=== PATIENT | female | born 1955 | race Hispanic/Latino ===

== ENCOUNTER 2016-08-28 06:07 | Inpatient (IN) | payer MEDICARE ==
[2016-08-28 06:14] VITALS: BMI 30.6
[2016-08-28] MEDS ORDERED: Thrombin Topical 5,000 IU Spray Kit ONE (07:04)
[2016-08-28] MEDS ORDERED: Absorbable Gelatin Sponge Size 100 ONE (07:04)
[2016-08-28] MEDS ORDERED: Bacitracin Ointment 30 GM TUBE ONE (07:04)
--- NOTE | 2016-08-28 07:06 | CP.PCM.HP ---
History of Present Illness - History of Present Illness History of Present Illness: Chief Complaint : right knee pain HPI: 61 y/o lady with hx of OA, HTN, DM and Psoriasis came in for scheduled Revision TKR of the right knee . The patient has had a long history of pain on the right knee. She had 4 previous surgeries on the right knee that includes Repair for a torn meniscus, partial knee replacement , TKR and for an infection w/c required prolonged antibiotic treatment , however despite these surgeries, she continues to have severe right knee pain . She had fallen multiple times because her right knee would buckle and she is unable to even bend her knee. Even a slight ROM gives her severe pain despite daily intake of analgesics. She then decided to see another Ortho and was referred to Dr Berry who recommended a Revision TKR. Pre op work up done by her PMD - in chart. Off Aspirin x 5 days . Present on Admission - Present on Admission Any Indicators Present on Admission: No Review of Systems - Review of Systems All systems: reviewed and no additional remarkable complaints except - Constitutional Constitutional: absent: Fever, Headache, Night Sweats, Weakness - EENT Eyes: absent: Change in Vision, Discharge Ears: absent: Ear Discharge, Ear Pain Nose/Mouth/Throat: absent: Nasal Congestion, Nasal Discharge, Sinus Pressure - Cardiovascular Cardiovascular: absent: Chest Pain, Chest Pain at Rest, Dyspnea on Exertion, Edema, Leg Edema, Orthopnea, Palpitations, Paroxysmal Nocturnal Dyspnea - Respiratory Respiratory: absent: Cough, Dyspnea, Dyspnea on Exertion, Wheezing - Gastrointestinal Gastrointestinal: absent: Abdominal Pain, Diarrhea, Nausea, Vomiting - Genitourinary Genitourinary: absent: Change in Urinary Stream, Difficulty Urinating, Dysuria, Hematuria - Musculoskeletal Musculoskeletal: Abnormal Gait, Arthralgias, Limited Range of Motion - Integumentary Integumentary: absent: Bleeding Lesions, Rash, Skin Ulcer - Neurological Neurological: absent: Focal Weakness, Memory Loss, Vertigo - Psychiatric Psychiatric: absent: Anxiety, Depression, Hopelessness - Endocrine Endocrine: absent: Polydipsia, Polyphagia, Polyuria - Hematologic/Lymphatic Hematologic: absent: Easy Bleeding, Easy Bruising Past Patient History - Infectious Disease Hx of Infectious Diseases: None - Tetanus Immunizations Tetanus Immunization: Unknown - Past Medical History & Family History Past Medical History?: Yes Past Family History: Reviewed and not pertinent - Past Social History Smoking Status: Never Smoked Chewing Tobacco Use: No Cigar Use: No Occupation: On disability Alcohol: None Drugs: Denies Home Situation {Lives}: With Family Domestic Violence: Negative - CARDIAC Hx Cardiac Disorders: Yes Hx Hypercholesterolemia: Yes Hx Hypertension: Yes Hx Pacemaker: No - PULMONARY Hx Respiratory Disorders: No - NEUROLOGICAL Hx Neurological Disorder: No Hx Dizziness: Yes (SYNCOPE X2) Other/Comment: Dx to have Cerebral Aneurysm 2007- on disability since then , no history of surgery , being monitored closely for this - HEENT Hx HEENT Problems: No - RENAL Hx Kidney Stones: Yes - ENDOCRINE/METABOLIC Hx Endocrine Disorders: Yes Hx Diabetes Mellitus Type 2: Yes - HEMATOLOGICAL/ONCOLOGICAL Hx Blood Disorders: No Hx Blood Transfusions: Yes (20 YRS AGO) Hx Blood Transfusion Reaction: No - INTEGUMENTARY Hx Dermatological Problems: Yes Hx Eczema: Yes Hx Psoriasis: Yes - MUSCULOSKELETAL/RHEUMATOLOGICAL Hx Musculoskeletal Disorders: Yes Hx Arthritis: Yes Hx Back Pain: Yes Hx Falls: Yes Hx Herniated Disk: Yes Hx Unsteady Gait: Yes Other/Comment: RIGHT SHOULDER TORN LIGAMENT - GASTROINTESTINAL Hx Gastrointestinal Disorders: Yes Hx Gastroesophageal Reflux: Yes Other/Comment: Umbilical Hernia Repair - GENITOURINARY/GYNECOLOGICAL Hx Genitourinary Disorders: No Other/Comment: KIDNEY STONES 09-24- - PSYCHIATRIC Hx Psychophysiologic Disorder: No Hx Depression: No Hx Emotional Abuse: No Hx Physical Abuse: No Hx Substance Use: No - SURGICAL HISTORY Hx Surgeries: Yes Hx Appendectomy: Yes Hx Herniorrhaphy: Yes (ABDOMINAL HERNIA REPAIR) Hx Hysterectomy: Yes Hx Joint Replacement: Yes (multiple right knee surgery - 4 surgeries - menisceal tear, TKR, hx of infe) Hx Orthopedic Surgery: Yes (multiple right knee surgery, TKR , menisceal tear ( 4 surgeries)) Hx Tonsillectomy: Yes Other/Comment: HYSTERECTOMY - ANESTHESIA Hx Anesthesia: Yes Hx Anesthesia Reactions: No Hx Malignant Hyperthermia: No Meds Allergies/Adverse Reactions: Allergies Allergy/AdvReac Type Severity Reaction Status Date / Time codeine Allergy Severe HALLUCINATI Verified 06/29/16 10:28 ONS Physical Exam - Constitutional Appears: No Acute Distress - Head Exam Head Exam: ATRAUMATIC, NORMAL INSPECTION, NORMOCEPHALIC - Eye Exam Eye Exam: Normal appearance Pupil Exam: NORMAL ACCOMODATION - ENT Exam ENT Exam: Mucous Membranes Dry, Normal External Ear Exam - Neck Exam Neck exam: Positive for: Full Rom. Negative for: Meningismus - Respiratory Exam Respiratory Exam: NORMAL BREATHING PATTERN. absent: Respiratory Distress - Cardiovascular Exam Cardiovascular Exam: REGULAR RHYTHM, +S1, +S2 - GI/Abdominal Exam GI & Abdominal Exam: Normal Bowel Sounds, Soft. absent: Tenderness - Extremities Exam Extremities exam: Positive for: normal capillary refill, pedal pulses present. Negative for: calf tenderness, full ROM, pedal edema Additional comments: old surgeical scar right knee unable to flex right knee, pain on ROM - Back Exam Back exam: absent: CVA tenderness (L), CVA tenderness (R), paraspinal tenderness - Neurological Exam Neurological exam: Alert, CN II-XII Intact, Oriented x3, Reflexes Normal - Psychiatric Exam Psychiatric exam: Normal Affect, Normal Mood - Skin Skin Exam: Dry, Normal Color, Warm Additional comments: psoriatic patches Results - Vital Signs Recent Vital Signs: Last Vital Signs Temp 97.4 F L 08/28/16 06:32 Pulse 77 08/28/16 06:34 Resp 20 08/28/16 06:32 BP 146/77 08/28/16 06:32 Pulse Ox 99 08/28/16 06:32 - Labs Labs: Laboratory Results - last 24 hr 08/28/16 06:47 POC Glucose (mg/dL) 141 H labs done as outpatient reviewed. Assessment & Plan (1) Right knee pain Status: Chronic (2) History of total knee replacement Status: Chronic (3) HTN (hypertension) Status: Chronic (4) DM type 2 (diabetes mellitus, type 2) Status: Chronic (5) Hyperlipidemia Status: Chronic (6) Psoriasis Status: Chronic (7) DVT prophylaxis Status: Acute - Assessment and Plan (Free Text) Assessment: 61 y/o lady with Hx of OA , HTN, DM, Psoriasis, came for scheduled Revision TKR of the right knee . Hx of multiple surgeries to the right knee . (1) Right knee pain Status: Chronic Pt came for sched Revision TKR Pre op work up done pt pt's PMD - in chart severe right knee pain, swelling, buckling, hx of falls due to the pain Had 4 surgeries of the right knee done by another Ortho ( Dr Montgomery) - ( Menisceal Tear, Partial replacement and TKR, also had hx of infection) Ortho consult : Dr Jamal Paez mgt PT/OT consult (2) History of total knee replacement Status: Chronic (3) HTN (hypertension) Status: Chronic cont Diovan (4) DM type 2 (diabetes mellitus, type 2) Status: Chronic accucheck on Lantus 40 bid on Invokana and Metformin (5) Hyperlipidemia Status: Chronic on Crestor (6) Psoriasis Status: Chronic on topical steroids (7) DVT prophylaxis Status: Acute
[2016-08-28] MEDS ORDERED: Propofol 10 mg/ml Inj (20 ML) ONE (07:12)
[2016-08-28] MEDS ORDERED: Midazolam 2 MG/2 ML VIAL ONE (07:12)
[2016-08-28] MEDS ORDERED: Ropivacaine 0.5% 30ML IV ONE (07:33)
[2016-08-28] MEDS ORDERED: Lactated Ringer's 1,000 ML IV ONE ×2 (07:36→10:00)
[2016-08-28] MEDS ORDERED: Rocuronium 10 mg/ml (5 ml) ONE (07:55)
[2016-08-28] MEDS ORDERED: Desflurane Inhalation Anesthetic Liq (240 ml) ONE (07:56)
[2016-08-28] MEDS ORDERED: ePHEDrine 50 mg/ml Inj ONE (08:44)
[2016-08-28 09:09] LABS: FLUID TYPE SYNOVIAL FLUID
[2016-08-28] MEDS ORDERED: Neostigmine Methylsulfate 3mg/3ml Syringe IV ONE (09:09)
[2016-08-28] MEDS ORDERED: Neostigmine Methylsulfate 2 MG/2 ML ML IV ONE (09:09)
[2016-08-28] MEDS ORDERED: Bacitracin OINT 15GM TOP ONE (10:48)
--- NOTE | 2016-08-28 11:07 | PCM.ANESB3 ---
Femoral Nerve Block - Femoral Nerve Block Date of Procedure: 08/28/16 Anesthesiologist: [place] Pre-Procedure Diagnosis: r knee djd Post-Procedure Diagnosis: same Procedure Performed: Femoral Nerve Block Right - Procedure Femoral Nerve Block: The procedure was explained to the patient that it is for the post-operative pain management. Consent was obtained after a thorough discussion with the patient regarding the benefits and possible complications of local anesthetic block of the femoral nerve at the inguinal crease area. The patient was brought to the operating room and standard monitors were applied. Time-out was held with the circulating nurse to confirm the correct surgery and the appropriate block. After applying oxygen by nasal cannula and administering IV Sedation, patient was placed in supine position with fully extended lower extremities and the _right groin exposed. The femoral artery was then carefully palpated. The ultrasound transducer was then applied to this area in the transverse plane and the femoral nerve was visualized lateral to the femoral artery and underneath the fascia iliaca. After thorough identification, the inguinal crease area was prepped with Betadine solution three times and 1 % Lidocaine was injected subcutaneously for topical anesthesia. At this point, a #22 gauge Stimuplex 2-inch needle was inserted immediately lateral to the femoral artery pulse at the inguinal crease and advanced perpendicularly. The needle was inserted to the ultrasound transducer in-plane towards the femoral nerve in a [id number] direction. Needle advancement was performed carefully under direct ultrasound visualization. Nerve stimulator was used and twitch of the quadriceps muscle was obtained at current of _2.0____ MA. After negative aspiration, __1___cc of _0.5____% ___ropivicaine ____was injected and this was followed with _19 cc of __0.5 % __ ropivicaine . Under ultrasound guidance the local anesthetics were observed spreading below fascia iliaca and around the femoral nerve. The needle was removed intact and sterile dressing was applied. The patient had stable vital signs, was conscious and in no apparent distress. The patient tolerated the femoral nerve block well with stable vital signs and was prepared for subsequent surgery.
[2016-08-28] MEDS: HYDROmorphone 0.5 mg/0.5 ml ISec IVP PRN ×5 (11:12→13:21)
--- NOTE | 2016-08-28 12:07 | RAD ---
Indication: Status post right knee revision Comparison: None available Two views, right knee Findings: The patient is status post right knee total arthroplasty. Alignment appears satisfactory. Soft tissue swelling, subcutaneous emphysema, drainage catheter, and surgical maria compatible with recent postoperative history Impression: Status post right knee arthroplasty as above.
--- NOTE | 2016-08-28 14:30 | RAD ---
PROCEDURE: Right Knee Radiographs. HISTORY: s/p right knee revision COMPARISON: None available. TECHNIQUE: Standard protocol for this study/examination. FINDINGS: Satisfactory postoperative findings status post right TKA. No evidence of prosthetic loosening. Surgical drains identified. IMPRESSION: Satisfactory postoperative status.
--- NOTE | 2016-08-28 15:38 | PCM.SURG1 ---
Surgeon's Initial Post Op Note - Surgeon's Notes Surgeon: Jamal Ingredient Specialist: kishan Lerma, 2nd assist Devan Levine Type of Anesthesia: General Endo, Spinal Anesthesia Administered By: Dr Gracia Pre-Operative Diagnosis: Painful R TKR Operative Findings: loosened tibial componenet. failed patella componeent. well fixed femoral component Post-Operative Diagnosis: as above Operation Performed: Revisison tibial component. revision patellar component. posterior capsular release. lateral patella release. anterior and posterior synovectomy Specimen/Specimens Removed: failed tibial component/patella componeent. synovitis Estimated Blood Loss: EBL {In ML}: 50 Blood Products Given: N/A Drains Used: Hemovac Post-Op Condition: Good Date of Surgery/Procedure: 08/28/16 Time of Surgery/Procedure: 08:35 (time in room 7:36/anesthesia induction time 7: 35)
[2016-08-28] MEDS: ceFAZolin 2 GM in Sodium Chloride 0.9% 100 ML IVPB SCH ×3 (16:21→16:25)
[2016-08-28] MEDS ORDERED: Insulin Detemir 100 Units/ml Inj SC SCH (17:00)
[2016-08-28] MEDS: Insulin Lispro (humaLOG) 100 Units/ml Inj SC SCH ×3 (17:44→22:17)
[2016-08-28] MEDS: Omega-3-Acid Ethyl Esters 1 GM Cap PO SCH (18:42)
[2016-08-28] MEDS: Insulin Detemir 100 Units/ml Inj SC SCH (21:57)
[2016-08-29] MEDS: ceFAZolin 2 GM in Sodium Chloride 0.9% 100 ML IVPB SCH (02:07)
[2016-08-29 04:05] VITALS: RESP 20
[2016-08-29 05:37] LABS: HEMATOCRIT 31.9 % (34.0-47.0); MEAN CELL VOLUME 86.9 fl (81.0-99.0); MEAN CORPUSCULAR HEMOGLOBIN 29.4 pg (27.0-31.0); MEAN CORPUSCULAR HGB CONC 33.9 g/dL (33.0-37.0); RED CELL DISTRIBUTION WIDTH 13.1 % (11.5-14.5); WHITE BLOOD COUNT 9.4 K/uL (4.8-10.8)
[2016-08-29 05:43] LABS: BLOOD UREA NITROGEN 17 mg/dl (7-17); CALCIUM 8.6 mg/dL (8.4-10.2); CARBON DIOXIDE 28 mmol/L (22-30); CHLORIDE 99 mmol/L (98-107); GFR AFRICAN-AMERICAN > 60; GLUCOSE,RANDOM 111 mg/dL (65-105); POTASSIUM 3.8 MMOL/L (3.6-5.0); SODIUM 138 mmol/l (132-148)
--- NOTE | 2016-08-29 08:00 | CP.PCM.PN ---
Subjective - Date & Time of Evaluation Date of Evaluation: 08/29/16 Time of Evaluation: 07:40 - Subjective Subjective: S pt with post op discomfort as exppected Objective - Vital Signs/Intake and Output Vital Signs (last 24 hours): Temp Pulse Resp BP Pulse Ox 98.6 F 89 20 110/66 100 08/29/16 01:18 08/29/16 01:18 08/29/16 01:18 08/29/16 01:18 08/29/16 01:18 Intake and Output: 08/29/16 08/29/16 06:59 18:59 Output Total 60 Balance -60 - Medications Medications: Current Medications Atorvastatin Calcium (Lipitor) 10 mg PO DAILY [facility] Home Med (Canagliflozin [Invokana]) 300 mg PO QAM [facility] Hydromorphone HCl (Dilaudid 0.2 Mg/Ml [employer]) 0 mg IV PRN PRN; Protocol PRN Reason: Pain, severe (8-10) Last Admin: 08/28/16 11:53 Dose: 0 mg Insulin Detemir (Levemir) 40 units SC Q12 [facility] Last Admin: 08/28/16 21:57 Dose: 40 units Insulin Human Lispro (Humalog) 0 units SC ACHS [facility] PRN Reason: Protocol Last Admin: 08/28/16 22:17 Dose: Not Given Cohyk-4-Awhr Ethyl Esters (Lovaza) 1 gm PO BID [facility] Last Admin: 08/28/16 18:42 Dose: 1 gm Valsartan (Diovan) 160 mg PO DAILY [facility] - Labs Labs: 08/29/16 04:35 08/29/16 04:35 APTT 24.3 SECONDS (23.3-32.5) 08/28/16 06:50 - Additional Findings Additional findings: Obj systemic qwnl Musculoskekltal stance/gaiot- defrred knee immobilizer intact orthopedically stable Assessment and Plan - Assessment and Plan (Free Text) Assessment: A- s/p Revsion TKR P full weight bearing CPM
[2016-08-29] MEDS: Omega-3-Acid Ethyl Esters 1 GM Cap PO SCH ×2 (09:13→16:18)
[2016-08-29] MEDS: Insulin Detemir 100 Units/ml Inj SC SCH ×3 (09:13→21:15)
[2016-08-29] MEDS: Insulin Lispro (humaLOG) 100 Units/ml Inj SC SCH ×4 (09:14→21:42)
[2016-08-29] MEDS: Pantoprazole 40 mg EC Tab PO SCH (09:20)
--- NOTE | 2016-08-29 12:24 | CP.PCM.PN ---
Subjective - Date & Time of Evaluation Date of Evaluation: 08/29/16 Time of Evaluation: 12:00 - Subjective Subjective: Some post op pain however better with pain meds- Dilaudid sl itching bec of her Psoriasis denies CP no SOB no abd pain\ no cough Objective - Vital Signs/Intake and Output Vital Signs (last 24 hours): Temp Pulse Resp BP Pulse Ox 98.3 F 90 20 120/63 97 08/29/16 09:00 08/29/16 10:32 08/29/16 08:28 08/29/16 08:28 08/29/16 10:32 Intake and Output: 08/29/16 08/29/16 06:59 18:59 Output Total 60 Balance -60 - Medications Medications: Current Medications Aspirin (Ecotrin) 81 mg PO BID [facility] Last Admin: 08/29/16 09:18 Dose: 81 mg Atorvastatin Calcium (Lipitor) 10 mg PO DAILY [facility] Last Admin: 08/29/16 09:18 Dose: 10 mg Docusate Sodium (Colace) 100 mg PO BID [facility] Last Admin: 08/29/16 09:18 Dose: 100 mg Home Med (Canagliflozin [Invokana]) 300 mg PO QAM [facility] Hydromorphone HCl (Dilaudid) 2 mg PO Q6 PRN PRN Reason: Pain, moderate (4-7) Insulin Detemir (Levemir) 40 units SC Q12 [facility] Last Admin: 08/29/16 09:26 Dose: Not Given Insulin Human Lispro (Humalog) 0 units SC ACHS [facility] PRN Reason: Protocol Last Admin: 08/29/16 09:14 Dose: Not Given Asifi-0-Bwcy Ethyl Esters (Lovaza) 1 gm PO BID [facility] Last Admin: 08/29/16 09:13 Dose: 1 gm Pantoprazole Sodium (Protonix Ec Tab) 40 mg PO DAILY [facility] Last Admin: 08/29/16 09:20 Dose: 40 mg Valsartan (Diovan) 160 mg PO DAILY [facility] Last Admin: 08/29/16 09:13 Dose: 160 mg - Labs Labs: 08/29/16 04:35 08/29/16 04:35 APTT 24.3 SECONDS (23.3-32.5) 08/28/16 06:50 - Constitutional Appears: No Acute Distress - Head Exam Head Exam: NORMAL INSPECTION, NORMOCEPHALIC - Eye Exam Eye Exam: EOMI, Normal appearance Pupil Exam: NORMAL ACCOMODATION - ENT Exam ENT Exam: Mucous Membranes Moist, Normal External Ear Exam - Neck Exam Neck Exam: Full ROM. absent: Meningismus - Respiratory Exam Respiratory Exam: NORMAL BREATHING PATTERN. absent: Respiratory Distress - Cardiovascular Exam Cardiovascular Exam: REGULAR RHYTHM, +S1, +S2 - GI/Abdominal Exam GI & Abdominal Exam: Soft, Normal Bowel Sounds. absent: Tenderness - Extremities Exam Extremities Exam: Normal Capillary Refill. absent: Calf Tenderness Additional comments: Right knee with immobilizer and Hemovac ( minimal blood ) Assessment and Plan (1) Right knee pain Status: Chronic (2) History of total knee replacement Status: Chronic (3) HTN (hypertension) Status: Chronic (4) DM type 2 (diabetes mellitus, type 2) Status: Chronic (5) Hyperlipidemia Status: Chronic (6) Psoriasis Status: Chronic (7) DVT prophylaxis Status: Acute - Assessment and Plan (Free Text) Assessment: 61 y/o lady with Hx of OA , HTN, DM, Psoriasis, came for scheduled Revision TKR of the right knee . Hx of multiple surgeries to the right knee . (1) Right knee pain s/p Revision TKR Pt came w/ severe right knee pain, swelling, buckling, hx of falls due to the pain Had 4 surgeries of the right knee done by another Ortho ( Dr Montgomery) - ( Menisceal Tear, Partial replacement and TKR, also had hx of infection) Ortho consult : Dr Berry- Revision TKR done 08/28 Pain mgt: Dilaudid IV and PO PT/OT consulted plan for ROHIT placement for further Rehab (2) History of total knee replacement Status: Chronic Revision TKR done this admission (3) HTN (hypertension) Status: Chronic cont Diovan (4) DM type 2 (diabetes mellitus, type 2) Status: Chronic accucheck on Lantus 40 bid on Invokana and Metformin at home - will hold for now (5) Hyperlipidemia Status: Chronic on sttin (6) Psoriasis Status: Chronic on topical steroids (7) DVT prophylaxis Status: Acute ASA BID
[2016-08-29] MEDS ORDERED: DiphenhydrAMINE 12.5 mg/5 ml LIQ UD (5 ml) PO PRN (12:26)
[2016-08-29] MEDS: Sodium Chloride 0.9% 1,000 ML IV SCH (18:53)
[2016-08-30] MEDS: Sodium Chloride 0.9% 1,000 ML IV SCH (06:22)
[2016-08-30] MEDS: Insulin Lispro (humaLOG) 100 Units/ml Inj SC SCH ×2 (06:51→13:17)
--- NOTE | 2016-08-30 07:03 | OP ---
PROCEDURE DATE: 08/28/2016 PREOPERATIVE DIAGNOSIS: Painful revision right total knee replacement. POSTOPERATIVE DIAGNOSES: 1. Loosened tibial component. 2. Failed patellar component with evidence of tricompartmental synovitis. 3. Anterior and posterior synovitis. 4. Posterior capsular contracture. POSTOPERATIVE DIAGNOSES: 1. Loosened tibial component. 2. Failed patellar component with deformation. 3. Synovitis, anterior and posterior compartments. 4. Lateral patella contracture. 5. Posterior capsular contracture. PROCEDURES: 1. Revision total knee replacement arthroplasty, 2 components. 2. Removal total knee components. 3. Anterior and posterior synovectomy. 4. Posterior capsular release. 5. Lateral patellar retinacular release. SURGEON: Amando Berry MD PLASMA CENTER TECHNICIAN: Elidia Castillo, Certified Registered Nursing Burial Vault Setter SECOND PSYCHOMETRICIAN: Alton Fishman ANESTHESIA: Spinal and general. COMPLICATIONS: None. DRAINS: One Hemovac. OPERATIVE INDICATION: The patient is a woman who has had a revision total knee replacement and has h ad severe pain since the surgery. The patient had been taken to surgery for an aspiration arthrogram , which was negative. Pros, cons, risks and benefits of surgical approach are discussed. The possib ility of mechanical failure, infection, thromboembolic disease, stiffness, nerve injury, secondary an d even tertiary surgery is discussed. The patient can no longer stand the discomfort and the informe d consent was obtained from the patient in the presence of her son. Again, the possibility of stiffn ess, mechanical failure, infection, thromboembolic disease, nerve injury, secondary or even tertiary surgery is discussed. The patient can no longer stand the discomfort. OPERATIVE PROCEDURE: After having obtained informed consent in the above fashion, after having ident ified side, site and procedure in a critical pause/timeout, after the satisfactory induction of the a nesthetic, the patient identified in the supine position with all bony prominences well padded, [facility] and free draped in the usual fashion for lower extremity surgery. Th e tourniquet had been applied, but is not yet inflated. After exsanguinating the limb using a 6 inch Esmarch bandage, the tourniquet, which had been applied, is inflated to 350 mmHg. Incision is descr ibed 2 fingerbreadths proximal, 2 fingerbreadths distal to the incision. An ellipse of skin is jasvir ed down through skin and subcutaneous tissue. This is excised. A medial arthrotomy is accomplished. The patella is everted. The knee is flexed. Dissection is carried around posteromedially to the d irect head of the semimembranosis tendon. A portion of the patella ligament is elevated. At this po int in time, the patellofemoral ligament is removed. An anterior synovectomy and posterior synovecto my is accomplished. The femoral component is found to be in appropriate rotation and well fixed. Th e tibia is dislocated anteriorly. There is found to be evidence of loosening of the tibial component with evidence of extravasation of blood when the polyethylene is removed and the plate is impacted. This having been accomplished, the plane between the plate and the cement is developed using an osci llating saw and this goes around the entire tibial plate. The tibial interface is then again identif ied and marked with the cement removing osteotomes. The tibial plate is removed. At this point in t angélica, the cement is removed as well. The cement is removed using a combination of the estefania, the saw a nd the cement removal instruments. This having been accomplished, the cement is removed and the intr amedullary tibial guide is placed with the tibial cut having been accomplished. The cut is adjusted to 0 degrees varus valgus and neutral degrees of posterior slope. This having been accomplished, vicky casey commences and the stemmed tibial component is trialed for a #2 tibial component with a 6 mm meta l augment medially and laterally with an 18 mm polyethylene. Stability is found to be excellent. At tention is turned to the patella. There is found to be evidence of patella damage. A posterior caps ular release had been accomplished after the tibial component is removed because of a posterior capsu lar contracture. The patient did not extend to full extension preoperatively. The lateral patellar retinaculum is contracted as well and at this point in time, the tibia having been sized and prepared , a lateral patellar retinacular release is accomplished. Anterior and posterior synovectomy is acco mplished. Posterior capsular release is accomplished using the oscillating saw. This having been ac complished, the tibial osteotomy is accomplished as well as a partial osteotomy of the fibular head, taking great care not to injure the peroneal nerve. Tibial osteotomy having been accomplished, proxi mal tibial having been prepared, the patella component having been removed, the patella cut is accomp lished and sizing is accomplished to a 37 mm patellar component. After lateral patellar retinacular release, trialing is accomplished and found to be excellent with a +6 augment and 18 mm polyethylene. Flexion, extension is balanced. Full extension is achieved and patella balance is achieved. The t ibia and patella are prepared using the waterpik and the #2 stemmed tibial component is applied with the 37 mm patella. Cementation having been accomplished, a reconstruction/reinforcement of the martínez la ligament is accomplished as well. This having been accomplished, this is accomplished with a [place] internal fixation suture and closure is in layers with #2 Quill, #2 FiberWire, the [place] is used with #2 Ethibond for reinforcement of the patella ligament and reconstruction of the patella ligament . Further closure is in layers with 0 Quill over an 1/8 inch suction Hemovac drain. Vicryl and stap les for skin. Scott Chowdary compression dressing is applied. PROCEDURES: 1. Revision total knee replacement arthroplasty, 2 components. 2. Removal previous total knee replacement arthroplasty, 2 components. 3. Repair/reconstruction of patella ligament. 4. Anterior and posterior synovectomy. 5. Posterior capsule release. 6. Lateral patellar retinacular release. SURGEON: Amando Berry MD PLASMA CENTER TECHNICIAN: Elidia Castillo SECOND PSYCHOMETRICIAN: Alton Castillo was essential to the completion of this procedure. Postoperative x-rays showed acceptab le position of the construct. Right knee was the involved knee. Amando Berry MD cc: [id number] TT: 08/29/2016 10:08:42 en 08/30/2016 06:02:46
[2016-08-30 08:16] VITALS: TEMP 98.6
[2016-08-30] MEDS: Insulin Detemir 100 Units/ml Inj SC SCH (09:00)
[2016-08-30] MEDS: Omega-3-Acid Ethyl Esters 1 GM Cap PO SCH (09:01)
[2016-08-30] MEDS: Pantoprazole 40 mg EC Tab PO SCH (09:02)
[2016-08-30 11:16] VITALS: PULSE 104; O2SAT 98
--- NOTE | 2016-08-30 13:51 | CP.PCM.DIS ---
Provider - Provider Date of Admission: 08/28/16 11:32 Attending physician: Rika Bergman MD Primary care physician: Yves Yang MD Consults: Ortho: Dr Berry Time Spent in preparation of Discharge (in minutes): 30 Diagnosis - Discharge Diagnosis (1) Status post revision of total knee replacement Status: Acute (2) Right knee pain Status: Chronic (3) History of total knee replacement Status: Chronic (4) HTN (hypertension) Status: Chronic (5) DM type 2 (diabetes mellitus, type 2) Status: Chronic (6) Hyperlipidemia Status: Chronic (7) Psoriasis Status: Chronic (8) DVT prophylaxis Status: Acute Hospital Course - Lab Results Lab Results: Micro Results 08/28/16 09:00 Knee - Right Gram Stain - Final 08/28/16 09:00 Knee - Right Wound Culture - Preliminary No growth. 08/28/16 09:00 Knee - Right Gram Stain - Final 08/28/16 09:00 Knee - Right Wound Culture - Preliminary No growth. 08/28/16 09:00 Knee - Right Gram Stain - Final 08/28/16 09:00 Knee - Right Wound Culture - Preliminary No growth. 08/28/16 09:00 Knee - Right Gram Stain - Final 08/28/16 09:00 Knee - Right Wound Culture - Preliminary No growth. 08/28/16 09:00 Knee - Right Gram Stain - Final 08/28/16 09:00 Knee - Right Wound Culture - Preliminary No growth. 08/28/16 09:00 Knee - Right Gram Stain - Final 08/28/16 09:00 Knee - Right Wound Culture - Preliminary No growth. 08/28/16 09:00 Knee - Right Gram Stain - Final 08/28/16 09:00 Knee - Right Wound Culture - Preliminary No growth. 08/28/16 09:00 Knee - Right Gram Stain - Final 08/28/16 09:00 Knee - Right Anaerobic Culture - Final NO ANAEROBES ISOLATED. 08/28/16 09:00 Knee - Right Wound Culture - Preliminary No growth. 08/28/16 09:00 Other: Please Indicate Mycobacterial Culture - Preliminary 08/28/16 09:00 Knee Right Fungal Culture - Preliminary 08/28/16 08:50 Knee - Right Gram Stain - Final Most Recent Lab Values WBC 9.4 K/uL (4.8-10.8) 08/29/16 04:35 RBC 3.67 Mil/uL (3.80-5.20) L 08/29/16 04:35 Hgb 10.8 g/dL (12.0-16.0) L 08/29/16 04:35 Hct 31.9 % (34.0-47.0) L 08/29/16 04:35 MCV 86.9 fl (81.0-99.0) 08/29/16 04:35 MCH 29.4 pg (27.0-31.0) 08/29/16 04:35 MCHC 33.9 g/dL (33.0-37.0) 08/29/16 04:35 RDW 13.1 % (11.5-14.5) 08/29/16 04:35 Plt Count 173 K/uL (130-400) 08/29/16 04:35 APTT 24.3 SECONDS (23.3-32.5) 08/28/16 06:50 Sodium 138 mmol/l (132-148) 08/29/16 04:35 Potassium 3.8 MMOL/L (3.6-5.0) 08/29/16 04:35 Chloride 99 mmol/L (98-107) 08/29/16 04:35 Carbon Dioxide 28 mmol/L (22-30) 08/29/16 04:35 Anion Gap 15 (10-20) 08/29/16 04:35 BUN 17 mg/dl (7-17) 08/29/16 04:35 Creatinine 0.7 mg/dL (0.7-1.2) 08/29/16 04:35 Est GFR ( Amer) > 60 08/29/16 04:35 Est GFR (Non-Af Amer) > 60 08/29/16 04:35 POC Glucose (mg/dL) 243 mg/dL (65-110) H 08/30/16 10:43 Random Glucose 111 mg/dL (65-105) H 08/29/16 04:35 Calcium 8.6 mg/dL (8.4-10.2) 08/29/16 04:35 Fluid Type Synovial fluid 08/28/16 09:00 Synovial WBC 34.0 /mm3 (0.0-150.0) 08/28/16 09:00 Synovial RBC 6188.0 /mm3 (0.0-0.0) H 08/28/16 09:00 Synovial Neutrophils 10.0 % (0-0) H 08/28/16 09:00 Synovial Lymphocytes 25.0 % (0-0) H 08/28/16 09:00 Synov Monos/Macrophage 15 % (0-0) H 08/28/16 09:00 Synovial Fluid Comment Moderately bloody 08/28/16 09:00 Blood Type A POSITIVE 08/28/16 06:50 Antibody Screen Negative 08/28/16 06:50 BBK History Checked Patient has bt 08/28/16 06:50 - Hospital Course Hospital Course: 61 y/o lady with Hx of OA , HTN, DM, Psoriasis, came for scheduled Revision TKR of the right knee . Hx of multiple surgeries to the right knee . (1) Right knee pain s/p Revision TKR Pt came w/ severe right knee pain, swelling, buckling, hx of falls due to the pain Had 4 surgeries of the right knee done by another Ortho ( Dr Montgomery) - ( Menisceal Tear, Partial replacement and TKR, also had hx of infection) Ortho consult : Dr Berry- Revision TKR done 08/28 Pain mgt: Dilaudid IV and PO PT/OT consulted d/c to [facility] for further Rehab pt doing well, pain controlled participated with PT Hemovac had very minimal blood and was d/c (2) History of total knee replacement Status: Chronic Revision TKR done this admission (3) HTN (hypertension) Status: Chronic cont Diovan (4) DM type 2 (diabetes mellitus, type 2) Status: Chronic accucheck on Lantus 40 bid on Invokana and Metformin at home (5) Hyperlipidemia Status: Chronic on statin (6) Psoriasis Status: Chronic on topical steroids (7) DVT prophylaxis Status: Acute ASA BID Discharge Exam - Head Exam Head Exam: NORMAL INSPECTION, NORMOCEPHALIC - Eye Exam Eye Exam: EOMI, Normal appearance, PERRL Pupil Exam: NORMAL ACCOMODATION - ENT Exam ENT Exam: Mucous Membranes Moist, Normal External Ear Exam - Neck Exam Neck exam: Full Rom - Respiratory Exam Respiratory Exam: NORMAL BREATHING PATTERN. absent: Respiratory Distress - Cardiovascular Exam Cardiovascular Exam: REGULAR RHYTHM, +S1, +S2 - GI/Abdominal Exam GI & Abdominal Exam: Normal Bowel Sounds, Soft. absent: Tenderness - Extremities Exam Extremities exam: normal capillary refill, pedal pulses present Additional comments: negative calf tenderness right knee with dressing and immobilizer Hemovac was d/c - Back Exam Back exam: FULL ROM. absent: CVA tenderness (L), CVA tenderness (R) - Neurological Exam Neurological exam: Alert, CN II-XII Intact, Oriented x3, Reflexes Normal - Psychiatric Exam Psychiatric exam: Normal Affect, Normal Mood - Skin Skin Exam: Dry, Normal Color, Warm Discharge Plan - Follow Up Plan Condition: GOOD Disposition: TRANSF TO SNF Instructions: Knee Replacement (DC), Knee Replacement (GEN) Additional Instructions: ff up with Dr Berry in 1 wk Immobilizer only during sleep cont CPM full weight bearing. Referrals: Amando Berry III, MD [Staff Provider] - Yves Yang MD [Primary Care Provider] -
[2016-08-30 15:25] VITALS: BP 100/65
== END 2016-08-30 16:13 | DRG 468 ==
LOC: H.OPSURG 06:07 → H.MEDSURG1 11:32
PROVIDERS: ADMIT Internal Medicine; ATTEND Internal Medicine
PROC: 0SPC0JC Removal of Synthetic Substitute from Right Knee Joint, Patellar Surface, Open Approach (ICD-10-PCS; 2016-08-28)
PROC: 0SPC09Z Removal of Liner from Right Knee Joint, Open Approach (ICD-10-PCS; 2016-08-28)
PROC: 0SUC09C Supplement Right Knee Joint with Liner, Patellar Surface, Open Approach (ICD-10-PCS; 2016-08-28)
PROC: 0SBC0ZZ Excision of Right Knee Joint, Open Approach (ICD-10-PCS; 2016-08-28)
PROC: 0SNC0ZZ Release Right Knee Joint, Open Approach (ICD-10-PCS; 2016-08-28)
PROC: 3E0T3BZ Introduction of Anesthetic Agent into Peripheral Nerves and Plexi, Percutaneous Approach (ICD-10-PCS; 2016-08-28)
PROC: 0SPV0JZ Removal of Synthetic Substitute from Right Knee Joint, Tibial Surface, Open Approach (ICD-10-PCS; principal; 2016-08-28 07:45)
PROC: 0SRV0J9 Replacement of Right Knee Joint, Tibial Surface with Synthetic Substitute, Cemented, Open Approach (ICD-10-PCS; 2016-08-28 07:45)
DX: T84.032A Mechanical loosening of internal right knee prosthetic joint, initial encounter (principal); T84.092A Other mechanical complication of internal right knee prosthesis, initial encounter; I10 Essential (primary) hypertension; Y83.9 Surgical procedure, unspecified as the cause of abnormal reaction of the patient, or of later complication, without mention of misadventure at the time of the procedure; L40.9 Psoriasis, unspecified; E78.5 Hyperlipidemia, unspecified; M65.9 Synovitis and tenosynovitis, unspecified; Z88.6 Allergy status to analgesic agent; E11.9 Type 2 diabetes mellitus without complications

== ENCOUNTER 2016-09-04 18:55 | Emergency (ER) | payer MEDICARE ==
[2016-09-04 18:55] VITALS: BMI 30.6
--- NOTE | 2016-09-04 19:40 | ED PDOC ---
HPI: General Adult Time Seen by Provider: 09/04/16 19:37 Chief Complaint (Nursing): Altered Mental Status Chief Complaint (Provider): confusion History Per: Patient History/Exam Limitations: no limitations Additional Complaint(s): 61yo female comes to the ED from rehab for right knee replacement for complaint of confusion today. Right knee was replaced 7 days ago and patient has been taking Dilaudid 2mg PO due to codeine allergy, which she took prior to going to rehab today. Patient states she is feeling better now. No chest pain, shortness of breath, headache. Patient states she has leg pain associated with post operative pain however states there is no unusual pain today No pain any where else, any other complaint. Patient agrees to labs and CXR. Ortho: Jamal Past Medical History Reviewed: Historical Data, Nursing Documentation, Vital Signs Vital Signs: Last Vital Signs Temp 97.6 F 09/04/16 22:54 Pulse 82 09/04/16 22:54 Resp 17 09/04/16 22:54 BP 105/53 L 09/04/16 22:54 Pulse Ox 100 09/05/16 00:11 - Medical History PMH: Arthritis, Diabetes, HTN, Hypercholesterolemia, Kidney Stones, Chronic Kidney Disease Denies: Depression - Surgical History Surgical History: Appendectomy, Tonsillectomy Denies: Pacemaker - Family History Family History: States: Unknown Family Hx - Immunization History Hx Tetanus Toxoid Vaccination: No Hx Influenza Vaccination: No Hx Pneumococcal Vaccination: No - Home Medications Home Medications: Ambulatory Orders Medication Instructions Recorded Metformin HCl 1,000 mg PO BID 01/31/12 Insulin Glargine,Hum.rec.anlog 40 unit SC BID 02/01/15 [Lantus] Canagliflozin [Invokana] 300 mg PO QAM 02/03/16 Rosuvastatin Calcium [Crestor] 20 mg PO DAILY 02/03/16 Egfkc-2-[id number] Ethyl Esters [OMEGA 3] 1 tab PO BID 02/26/16 Esomeprazole Magnesium [Nexium] 40 mg PO DAILY 07/19/16 Valsartan [Diovan] 160 mg PO DAILY 07/19/16 Aspirin [Ecotrin] 81 mg PO BID tabec 08/30/16 DiphenhydrAMINE [Benadryl] 12.5 mg PO Q6 PRN #0 udc 08/30/16 Docusate [Colace] 100 mg PO BID cap 08/30/16 Fluocinonide 0.05% Ointment [Lidex 1 applic TOP BID tube 08/30/16 0.05% Oint] HYDROmorphone [Dilaudid] 2 mg PO Q6 PRN #0 tab 08/30/16 traMADol [Ultram] 50 mg PO Q6 PRN #0 08/30/16 Iron,Carbonyl/Vit C/Vit B12/FA 1 tab PO BID #30 tab 09/04/16 [Iron 100 Plus 250 mg-25 Mcg-1 mg-100 mg] Nitrofurantoin Macrocrystals 100 mg PO BID 5 Days 09/04/16 [Macrobid] - Allergies Allergies/Adverse Reactions: Allergies Allergy/AdvReac Type Severity Reaction Status Date / Time codeine Allergy Severe HALLUCINATI Verified 09/04/16 18:57 ONS Review of Systems ROS Statement: Except As Marked, All Systems Reviewed And Found Negative Constitutional: Negative for: Fever Cardiovascular: Negative for: Chest Pain Respiratory: Negative for: Shortness of Breath Musculoskeletal: Positive for: Leg Pain Neurological: Positive for: Confusion. Negative for: Headache Physical Exam - Reviewed Nursing Documentation Reviewed: Yes Vital Signs Reviewed: Yes - Physical Exam Appears: Positive for: Well, Non-toxic, No Acute Distress Head Exam: Positive for: ATRAUMATIC, NORMAL INSPECTION, NORMOCEPHALIC Skin: Positive for: Warm, Dry Eye Exam: Positive for: EOMI, PERRL Cardiovascular/Chest: Positive for: Regular Rate, Rhythm Respiratory: Positive for: Normal Breath Sounds. Negative for: Rales, Rhonchi, Wheezing Gastrointestinal/Abdominal: Positive for: Soft, Other (obese). Negative for: Tenderness Extremity: Positive for: Other (Right leg wrapped distally. Neurovascularly intact.) Neurologic/Psych: Positive for: Alert, Oriented (x3) - Laboratory Results Result Diagrams: 09/04/16 20:40 09/04/16 20:40 - ECG O2 Sat by Pulse Oximetry: 100 (RA) Pulse Ox Interpretation: Normal Medical Decision Making Medical Decision Makin rectal temp is 99.3*F. I explained to patient that this is likely a reaction to Dilaudid PO however patient agrees to ED workup. 2229 Explained that pt. is anemic (has hx of it remotely) and small UTI, will treat for both. Told to f/u w/ PMD or return to ER for worsening or concerning symptoms. Disposition - Clinical Impression Clinical Impression: Dizziness, Opioid-induced delirium, UTI (urinary tract infection) - Disposition Disposition: Rehab Facility/Unit Disposition Time: 22:30 Condition: STABLE Additional Instructions: Please be careful of the amount of pain medications that you are taking. Please discuss with your doctor about your anemia and have your blood counts checked in 1-2 weeks. Please return to the ER for any worsening or concerning symptoms. Prescriptions: Iron,Carbonyl/Vit C/Vit B12/FA [Iron 100 Plus 250 mg-25 Mcg-1 mg-100 mg] 1 tab PO BID #30 tab Nitrofurantoin Macrocrystals [Macrobid] 100 mg PO BID 5 Days Instructions: Urinary Tract Infection in Women (ED), Anemia (ED), Opioid Pain Management (ED) Additional Comments - Additional Comments Additional Comments: Scribe Attestation: Documented by Daniel Cabrera acting as a scribe for Mariah Lea MD. Scribe Attestation: All medical record entries made by the Scribe were at my direction and personally dictated by me. I have reviewed the chart and agree that the record accurately reflects my personal performance of the history, physical exam, medical decision making, and the department course for this patient. I have also personally directed, reviewed, and agree with the discharge instructions and disposition.
[2016-09-04 20:48] LABS: BASO # 0.1 K/uL (0.0-0.2); BASO % 0.8 % (0.0-2.0); EOS # 0.1 K/uL (0.0-0.7); HEMATOCRIT 24.8 % (34.0-47.0); LYMPH # 1.6 K/uL (1.0-4.3); LYMPH % 12.3 % (20.0-40.0); MEAN CELL VOLUME 85.2 fl (81.0-99.0); MEAN CORPUSCULAR HEMOGLOBIN 29.3 pg (27.0-31.0); MEAN CORPUSCULAR HGB CONC 34.4 g/dL (33.0-37.0); MONO # 1.2 K/uL (0.0-0.8); NEUT % 76.9 % (50.0-75.0)
[2016-09-04 21:11] LABS: BLOOD UREA NITROGEN 28 mg/dl (7-17); CALCIUM 8.9 mg/dL (8.4-10.2); CARBON DIOXIDE 29 mmol/L (22-30); CHLORIDE 95 mmol/L (98-107); GFR AFRICAN-AMERICAN > 60; GLUCOSE,RANDOM 123 mg/dL (65-105); POTASSIUM 4.4 MMOL/L (3.6-5.0); SODIUM 137 mmol/l (132-148)
[2016-09-04 21:29] LABS: RBC URINE 3 /hpf (0-3); URINE BILIRUBIN NEGATIVE (NEGATIVE); URINE BLOOD NEGATIVE (NEGATIVE); URINE COLOR YELLOW (YELLOW); URINE GLUCOSE (UA) >=500 mg/dL (Normal); URINE KETONE NEGATIVE (NEGATIVE); URINE LEUKOCYTE ESTERASE SMALL Leu/uL (Negative); URINE PROTEIN 30 mg/dL (NEGATIVE); URINE UROBILINOGEN 0.2-1.0 mg/dL (0.2-1.0); WBC URINE 4 /hpf (0-5)
[2016-09-04 22:56] VITALS: BP 105/53; PULSE 82; RESP 17; TEMP 97.6
[2016-09-05 00:11] VITALS: O2SAT 100
== END 2016-09-04 22:56 ==
LOC: H.ER 18:55
DX: R41.0 Disorientation, unspecified (principal); F11.921 Opioid use, unspecified with intoxication delirium; N39.0 Urinary tract infection, site not specified; R42 Dizziness and giddiness; I12.9 Hypertensive chronic kidney disease with stage 1 through stage 4 chronic kidney disease, or unspecified chronic kidney disease; Z96.651 Presence of right artificial knee joint; E11.22 Type 2 diabetes mellitus with diabetic chronic kidney disease; E78.00 Pure hypercholesterolemia, unspecified; Z79.4 Long term (current) use of insulin; Z79.82 Long term (current) use of aspirin

== ENCOUNTER 2016-09-07 15:59 | Emergency (ER) | payer MEDICARE ==
[2016-09-07 15:59] VITALS: BMI 30.6
[2016-09-07 16:04] VITALS: PULSE 97; RESP 16; TEMP 97.6; O2SAT 100
--- NOTE | 2016-09-07 16:19 | ED PDOC ---
HPI: General Adult Time Seen by Provider: 09/07/16 16:11 Chief Complaint (Nursing): Trauma History Per: Patient (Anjali with weights fell on pt's head while at rehab at 1 PM today. No LOC. Denies haedache or dizziness. c/o mild nausea. No other injury.) Onset/Duration Of Symptoms: Hrs (3) Current Symptoms Are (Timing): Still Present Severity: Mild Pain Scale Rating Of: 0 Past Medical History Vital Signs: Last Vital Signs Temp 97.6 F 09/07/16 16:01 Pulse 97 H 09/07/16 16:01 Resp 16 09/07/16 16:01 BP 101/58 L 09/07/16 16:01 Pulse Ox 100 09/07/16 17:58 - Medical History PMH: Arthritis, Diabetes, HTN, Hypercholesterolemia, Kidney Stones, Chronic Kidney Disease Denies: Depression - Surgical History Surgical History: Appendectomy, Tonsillectomy Denies: Pacemaker Other surgeries: s/p knee surgery - Family History Family History: States: Unknown Family Hx - Immunization History Hx Tetanus Toxoid Vaccination: No Hx Influenza Vaccination: No Hx Pneumococcal Vaccination: No - Home Medications Home Medications: Ambulatory Orders Medication Instructions Recorded Metformin HCl 1,000 mg PO BID 01/31/12 Insulin Glargine,Hum.rec.anlog 40 unit SC BID 02/01/15 [Lantus] Canagliflozin [Invokana] 300 mg PO QAM 02/03/16 Rosuvastatin Calcium [Crestor] 20 mg PO DAILY 02/03/16 Hiwff-2-Qnee Ethyl Esters [OMEGA 3] 1 tab PO BID 02/26/16 Esomeprazole Magnesium [Nexium] 40 mg PO DAILY 07/19/16 Valsartan [Diovan] 160 mg PO DAILY 07/19/16 Aspirin [Ecotrin] 81 mg PO BID tabec 08/30/16 DiphenhydrAMINE [Benadryl] 12.5 mg PO Q6 PRN #0 udc 08/30/16 Docusate [Colace] 100 mg PO BID cap 08/30/16 Fluocinonide 0.05% Ointment [Lidex 1 applic TOP BID tube 08/30/16 0.05% Oint] HYDROmorphone [Dilaudid] 2 mg PO Q6 PRN #0 tab 04/19/17 traMADol [Ultram] 50 mg PO Q6 PRN #0 08/30/16 Iron,Carbonyl/Vit C/Vit B12/FA 1 tab PO BID #30 tab 09/04/16 [Iron 100 Plus 250 mg-25 Mcg-1 mg-100 mg] Nitrofurantoin Macrocrystals 100 mg PO BID 5 Days 09/04/16 [Macrobid] - Allergies Allergies/Adverse Reactions: Allergies Allergy/AdvReac Type Severity Reaction Status Date / Time codeine Allergy Severe HALLUCINATI Verified 09/07/16 16:01 ONS Review of Systems Eyes: Negative for: Vision Change Gastrointestinal: Positive for: Nausea Musculoskeletal: Negative for: Neck Pain, Back Pain Neurological: Negative for: Weakness, Numbness, Confusion, Headache, Dizziness Physical Exam - Physical Exam Appears: Positive for: Non-toxic, No Acute Distress Head Exam: Positive for: ATRAUMATIC, NORMAL INSPECTION, NORMOCEPHALIC Skin: Positive for: Normal Color, Warm, DRY Neck: Positive for: Normal, Painless ROM, Supple. Negative for: Pain On Movement Of Neck Back: Positive for: Normal Inspection Neurologic/Psych: Positive for: Alert, Oriented. Negative for: Motor/Sensory Deficits - ECG O2 Sat by Pulse Oximetry: 100 Medical Decision Making Medical Decision Makin:56 CT head FINDINGS: HEMORRHAGE: No intracranial hemorrhage. BRAIN: No mass effect or edema. No atrophy or chronic microvascular ischemic changes. VENTRICLES: Unremarkable. No hydrocephalus. CALVARIUM: Unremarkable. PARANASAL SINUSES: Unremarkable as visualized. No significant inflammatory changes. MASTOID AIR CELLS: Unremarkable as visualized. No inflammatory changes. OTHER FINDINGS: None. IMPRESSION: No acute intracranial abnormalities. No significant findings to account for the clinical presentation. Disposition - Clinical Impression Clinical Impression: Head injury - Patient ED Disposition Is Patient to be Admitted: No Counseled Patient/Family Regarding: Studies Performed, Diagnosis, Need For Followup - Disposition Referrals: Jamshid Zuniga MD [Medical Doctor] - Disposition: Routine/Home Disposition Time: 18:00 Condition: FAIR Instructions: Head Injury (ED)
--- NOTE | 2016-09-07 17:57 | CT ---
PROCEDURE: CT HEAD WITHOUT CONTRAST. HISTORY: r/o bleed COMPARISON: None available. TECHNIQUE: Axial computed tomography images were obtained through the head/brain without intravenous contrast. Radiation dose: Total exam DLP = 867.28 mGy-cm. This CT exam was performed using one or more of the following dose reduction techniques: Automated exposure control, adjustment of the mA and/or kV according to patient size, and/or use of iterative reconstruction technique. FINDINGS: HEMORRHAGE: No intracranial hemorrhage. BRAIN: No mass effect or edema. No atrophy or chronic microvascular ischemic changes. VENTRICLES: Unremarkable. No hydrocephalus. CALVARIUM: Unremarkable. PARANASAL SINUSES: Unremarkable as visualized. No significant inflammatory changes. MASTOID AIR CELLS: Unremarkable as visualized. No inflammatory changes. OTHER FINDINGS: None. IMPRESSION: No acute intracranial abnormalities. No significant findings to account for the clinical presentation.
[2016-09-07 20:32] VITALS: BP 138/71
== END 2016-09-07 20:34 | disposition home or self-care (01) ==
LOC: H.ER 15:59
DX: S09.90XA Unspecified injury of head, initial encounter (principal); W22.8XXA Striking against or struck by other objects, initial encounter; Y92.538 Other ambulatory health services establishments as the place of occurrence of the external cause; E11.22 Type 2 diabetes mellitus with diabetic chronic kidney disease; E78.00 Pure hypercholesterolemia, unspecified; I12.9 Hypertensive chronic kidney disease with stage 1 through stage 4 chronic kidney disease, or unspecified chronic kidney disease; Z79.4 Long term (current) use of insulin; Z79.82 Long term (current) use of aspirin

== ENCOUNTER 2016-09-21 16:36 | Inpatient (IN) | payer MEDICARE ==
[2016-09-21 16:36] VITALS: BMI 30.6
[2016-09-21 17:52] LABS: BASO # 0.1 K/uL (0.0-0.2); EOS # 0.2 K/uL (0.0-0.7); EOS % 1.3 % (0.0-4.0); HEMATOCRIT 31.7 % (34.0-47.0); LYMPH # 2.2 K/uL (1.0-4.3); LYMPH % 17.3 % (20.0-40.0); MEAN CELL VOLUME 85.9 fl (81.0-99.0); MEAN CORPUSCULAR HGB CONC 32.5 g/dL (33.0-37.0); MEAN PLATELET VOLUME 8.1 fl (7.2-11.7); MONO # 0.9 K/uL (0.0-0.8); MONO % 7.3 % (0.0-10.0); NEUT # 9.4 K/uL (1.8-7.0); NEUT % 73.1 % (50.0-75.0); NRBC % 0.1 % (0.0-0.0); RED CELL DISTRIBUTION WIDTH 13.7 % (11.5-14.5); WHITE BLOOD COUNT 12.8 K/uL (4.8-10.8)
--- NOTE | 2016-09-21 17:53 | ED PDOC ---
HPI: Back Time Seen by Provider: 09/21/16 16:46 Chief Complaint (Nursing): Back Pain Chief Complaint (Provider): Flank Pain History Per: Patient History/Exam Limitations: no limitations Onset/Duration Of Symptoms: Days (x1), Gradual Current Symptoms Are (Timing): Still Present Quality Of Discomfort: "Pain" Exacerbating Factor(s): Movement, Other (deep breaths) Additional Complaint(s): 61 year old female presents to ED with complaints of left sided flank pain x1 day and has a past medical history of kidney stones, DM, and HTN. Patient notes that she woke up with the pain and that is has gradually worsened over the course of the day. Pain is exacerbated by deep breathing and movement. Notes that pain radiates to her left back. (+) mild nausea, (-) vomiting, diarrhea, dysuria, abdominal pain, or fever. Notes that she recently had a right knee replacement on September 07, [address] Berry and is currently in rehabilitation with intensive physical therapy daily. (-) leg swelling, chest pain, or SOB. PCP: Yves Yang - Risk Factors AAA Risk Factors: Pos: Older Than 49 Years Of Age, Hypertension Past Medical History Reviewed: Historical Data, Nursing Documentation, Vital Signs Vital Signs: Last Vital Signs Temp 99.7 F H 09/21/16 16:41 Pulse 110 H 09/21/16 16:41 Resp 16 09/21/16 16:41 BP 133/61 09/21/16 16:41 Pulse Ox 100 09/21/16 16:41 - Medical History PMH: Arthritis, Diabetes, HTN, Hypercholesterolemia, Kidney Stones, Chronic Kidney Disease Denies: Depression - Surgical History Surgical History: Appendectomy, Hernia Repair, Tonsillectomy Denies: Pacemaker Other surgeries: Right knee replacement - Family History Family History: States: Unknown Family Hx - Immunization History Hx Tetanus Toxoid Vaccination: No Hx Influenza Vaccination: No Hx Pneumococcal Vaccination: No - Home Medications Home Medications: Ambulatory Orders Medication Instructions Recorded Metformin HCl 1,000 mg PO BID 01/31/12 Insulin Glargine,Hum.rec.anlog 40 unit SC BID 02/01/15 [Lantus] Canagliflozin [Invokana] 300 mg PO QAM 02/03/16 Rosuvastatin Calcium [Crestor] 20 mg PO DAILY 02/03/16 Enzje-1-Aoru Ethyl Esters [OMEGA 3] 1 tab PO BID 02/26/16 Esomeprazole Magnesium [Nexium] 40 mg PO DAILY 07/19/16 Valsartan [Diovan] 160 mg PO DAILY 07/19/16 Aspirin [Ecotrin] 81 mg PO BID tabec 08/30/16 DiphenhydrAMINE [Benadryl] 12.5 mg PO Q6 PRN #0 udc 08/30/16 Docusate [Colace] 100 mg PO BID cap 08/30/16 Fluocinonide 0.05% Ointment [Lidex 1 applic TOP BID tube 08/30/16 0.05% Oint] traMADol [Ultram] 50 mg PO Q6 PRN #0 08/30/16 Acetaminophen [Tylenol 325mg tab] 650 mg PO Q4H PRN 09/21/16 Acetaminophen [Tylenol 325mg tab] 650 mg PO Q4H PRN 09/21/16 HYDROmorphone [Dilaudid] 2 mg PO Q6 PRN 09/21/16 Loperamide [Imodium] 2 mg PO Q6H PRN 09/21/16 Loperamide [Imodium] 4 mg PO ASDIR PRN 09/21/16 Mag Hydrox/Aluminum Hyd/Simeth 30 ml PO Q4H PRN 09/21/16 [Maalox Advanced Suspension] Magnesium Hydroxide [Milk Of 30 ml PO HS PRN 09/21/16 Magnesia] Prochlorperazine [Compro] 25 mg PO Q12H PRN 09/21/16 oxyCODONE [oxyCODONE Immediate 10 mg PO Q4H PRN 09/21/16 Release Tab] - Allergies Allergies/Adverse Reactions: Allergies Allergy/AdvReac Type Severity Reaction Status Date / Time codeine Allergy Severe HALLUCINATI Verified 09/21/16 16:41 ONS Review of Systems ROS Statement: Except As Marked, All Systems Reviewed And Found Negative Constitutional: Negative for: Fever Cardiovascular: Negative for: Chest Pain Respiratory: Negative for: Shortness of Breath Gastrointestinal: Positive for: Nausea (mild). Negative for: Vomiting, Abdominal Pain, Diarrhea Genitourinary Female: Negative for: Dysuria Musculoskeletal: Positive for: Back Pain (pain radiates to left back), Other ( left sided flank pain). Negative for: Leg Pain (leg swelling) Physical Exam - Reviewed Nursing Documentation Reviewed: Yes Vital Signs Reviewed: Yes - Physical Exam Appears: Positive for: Non-toxic, Uncomfortable Head Exam: Positive for: ATRAUMATIC Skin: Positive for: Normal Color, Warm, Dry Eye Exam: Positive for: Normal appearance ENT: Positive for: Normal ENT Inspection Neck: Positive for: Normal Cardiovascular/Chest: Positive for: Regular Rate, Rhythm. Negative for: Murmur Respiratory: Positive for: Normal Breath Sounds. Negative for: Respiratory Distress Gastrointestinal/Abdominal: Positive for: Soft. Negative for: Tenderness Back: Positive for: L CVA Tenderness, Other (Tenderness in left flank/midback area). Negative for: Normal Inspection Extremity: Positive for: Normal ROM. Negative for: Deformity Neurologic/Psych: Positive for: Alert, Oriented (x3). Negative for: Motor/ Sensory Deficits - Laboratory Results Result Diagrams: 09/22/16 08:15 09/21/16 17:43 - ECG ECG: Positive for: Interpreted By Me, Viewed By Me ECG Rhythm: Positive for: Normal QRS, Sinus Tachycardia. Negative for: ST/T Changes Rate: 101 O2 Sat by Pulse Oximetry: 100 (RA) Pulse Ox Interpretation: Normal Medical Decision Making Medical Decision Makin Initial impression: flank pain DDx: kidney stones, musculoskeletal pain, lumbar radiculopathy, r/o PE Initial plan: * CTA A/P * EKG * Labs * Trop I * D Dimer * CXR * Morphone 4mg IVP * UA * Re-eval 1900 Transfer of care to Dr. Lea pending CT. Scribe Attestation: Documented by Lexus Larose acting as a scribe for Binta Tilley MD. Scribe Attestation: All medical record entries made by the Scribe were at my direction and personally dictated by me. I have reviewed the chart and agree that the record accurately reflects my personal performance of the history, physical exam, medical decision making, and the department course for this patient. I have also personally directed, reviewed, and agree with the discharge instructions and disposition. Disposition - Clinical Impression Clinical Impression: Pulmonary embolism - Patient ED Disposition Is Patient to be Admitted: Transfer of Care Counseled Patient/Family Regarding: Studies Performed, Diagnosis - Disposition Disposition: Transfer of Care Disposition Time: 19:00 Condition: FAIR Patient Signed Over To: Faizan Lea Handoff Comments: Pending CT
[2016-09-21 18:03] LABS: BLOOD UREA NITROGEN 21 mg/dl (7-17); CALCIUM 9.9 mg/dL (8.4-10.2); CARBON DIOXIDE 27 mmol/L (22-30); CHLORIDE 96 mmol/L (98-107); GFR AFRICAN-AMERICAN > 60; GLUCOSE,RANDOM 147 mg/dL (65-105); POTASSIUM 4.4 MMOL/L (3.6-5.0); SODIUM 140 mmol/l (132-148)
--- NOTE | 2016-09-21 18:14 | RAD ---
HISTORY: chest pain COMPARISON: No prior. TECHNIQUE: Chest PA and lateral FINDINGS: LUNGS: No active pulmonary disease. PLEURA: No significant pleural effusion identified. No pneumothorax apparent. CARDIOVASCULAR: No radiographic findings to suggest acute or significant cardiovascular disease. OSSEOUS STRUCTURES: No significant abnormalities. VISUALIZED UPPER ABDOMEN: Normal. OTHER FINDINGS: None. IMPRESSION: No active disease.
[2016-09-21] MEDS ORDERED: Iohexol 300 100 ML IJ ONE (18:31)
[2016-09-21] MEDS ORDERED: Sodium Chloride 0.9% 50 ML IV ONE ×2 (18:31→21:05)
--- NOTE | 2016-09-21 20:34 | CT ---
EXAM: CT Abdomen and Pelvis With Intravenous Contrast CLINICAL HISTORY: 61 years old, female; Pain; Abdominal pain; Flank; Left upper quadrant (luq); Prior surgery; Surgery date: 6+ months; Surgery type: Abdominal hernia 5 years ago; Additional info: Left flank left back pain TECHNIQUE: Axial computed tomography images of the abdomen and pelvis with intravenous contrast. This CT exam was performed using one or more of the following dose reduction techniques: automated exposure control, adjustment of the mA and/or kV according to patient size, and/or use of iterative reconstruction technique. Coronal and sagittal reformatted images were created and reviewed. CONTRAST: 95 mL of OMNIPAQUE 300 administered intravenously. EXAM DATE/TIME: 09/21/2016 5:03 PM COMPARISON: No relevant prior studies available. FINDINGS: LOWER THORAX: No infiltrate seen in the lung bases. ABDOMEN: LIVER: Fatty infiltration of the liver. GALLBLADDER AND BILE DUCTS: No CT evidence of acute cholecystitis. No evidence of significant biliary ductal dilatation. PANCREAS: No CT evidence of acute pancreatitis. SPLEEN: No acute abnormality of the spleen identified. ADRENALS: No acute abnormality of the adrenal glands identified. KIDNEYS AND URETERS: No acute abnormality of the kidneys identified. No evidence of significant hydrouereteronephrosis. STOMACH AND BOWEL: Retained stool noted throughout the colon. Otherwise, no significant abnormality of the bowel is identified. No evidence of bowel obstruction. No acute abnormality of the stomach or duodenum identified. APPENDIX: Normal appendix is not seen, however, there are no significant inflammatory changes visualized in the expected location of the appendix to suggest appendicitis. Recommend clinical correlation. PELVIS: BLADDER: Bladder is mildly dilated. REPRODUCTIVE: Uterus is surgically absent. No evidence of large adnexal masses. ABDOMEN and PELVIS: INTRAPERITONEAL SPACE: No evidence of free intraperitoneal air or fluid. RETROPERITONEAL SPACE: No evidence of retroperitoneal hemorrhage. BONES/JOINTS: Multiple vertebral hemangiomas incidentally noted. Bony structures appear demineralized. No acute fractures or other acute bony abnormality visualized. SOFT TISSUES: Postsurgical changes involving the anterior abdominal wall, most likely related to previous hernia repair. Mesh material is noted. Minimal fluid is seen within the mesh material superiorly, image 107/series 3, of uncertain clinical significance. No associated gas or adjacent inflammation. No evidence of recurrent hernia. VASCULATURE: No evidence of abdominal aortic aneurysm or dissection. LYMPH NODES: No evidence of diffuse lymphadenopathy. IMPRESSION: - No evidence of significant acute process. No definite cause for pain identified. - Evidence of previous hernia repair, with mesh material in place. Minimal fluid is seen within the mesh material, of uncertain clinical significance. - See above for remaining findings.
[2016-09-21 20:48] LABS: RBC URINE 224 /hpf (0-3); URINE BACTERIA FEW (<OCC); URINE BILIRUBIN NEGATIVE (NEGATIVE); URINE BLOOD NEGATIVE (NEGATIVE); URINE COLOR YELLOW (YELLOW); URINE GLUCOSE (UA) >=500 mg/dL (Normal); URINE KETONE NEGATIVE (NEGATIVE); URINE LEUKOCYTE ESTERASE MOD Leu/uL (Negative); URINE PROTEIN NEGATIVE (NEGATIVE); URINE UROBILINOGEN 0.2-1.0 mg/dL (0.2-1.0); WBC URINE 191 /hpf (0-5)
[2016-09-21] MEDS ORDERED: Iodixanol 320 MG/ML 100 ML BOTTLE IV ONE (21:05)
--- NOTE | 2016-09-21 22:24 | ED PDOC ---
- Laboratory Results Result Diagrams: 09/21/16 17:43 09/21/16 17:43 - ECG O2 Sat by Pulse Oximetry: 100 (RA) Medical Decision Making Medical Decision Makin Transfer of care to me from Dr. Tilley pending work up. 2258 CT FINDINGS PULMONARY ARTERIES: Multiple filling defects are seen in the right pulmonary arteries, compatible with pulmonary emboli. There is clot in the right pulmonary artery/ central clot, which extends into the right upper lobe pulmonary arteries. Emboli are also visualized in the right lower lobe pulmonary artery and in multiple segmental and subsegmental branches of this vessel. AORTA: No evidence of aortic dissection. LUNGS: Patchy densities in the posterior inferior lung bases bilaterally, most compatible with dependent atelectasis. Incidental 3 mm noncalcified pulmonary nodule in the right lung, image 45/series 5. In low-risk patients (minimal or absent history of smoking or other known risk factors), recommend CT at 12 months. If stable, no further follow-up. For high-risk patients (history of smoking or other known risk factors), recommend initial CT at 6-12 months. If stable, repeat CT at 18-24 months. No evidence of significant focal consolidation/infiltrate in the lungs. No evidence of diffuse pulmonary vascular congestion. PLEURAL SPACE: No pneumothorax or pleural effusions seen. HEART: Heart appears mildly enlarged. No evidence of significant pericardial effusion. BONES/JOINTS: Multiple vertebral hemangiomas incidentally noted. No acute fractures or other acute bony abnormality visualized. LYMPH NODES: No evidence of diffuse lymphadenopathy. IMPRESSION: - Right-sided pulmonary emboli, including centrally-located clot, in the right pulmonary artery. - Incidental 5 pumonary nodule. See recommendations above. - See above for remaining findings. Patient's pain is noted to be on the left side, not the right side. Discussed with patient, will need Lovenox for PE. Discussed case with Dr. Mahan, who accepted admission. Scribe Attestation: Documented by Lexus Larose acting as a scribe for Faizan Lea MD. Scribe Attestation: All medical record entries made by the Scribe were at my direction and personally dictated by me. I have reviewed the chart and agree that the record accurately reflects my personal performance of the history, physical exam, medical decision making, and the department course for this patient. I have also personally directed, reviewed, and agree with the discharge instructions and disposition. Disposition - Clinical Impression Clinical Impression: Pulmonary embolism - POA Present On Arrival: Deep Vein Thrombosis / PE - Disposition Disposition: Admitted as In-Patient Disposition Time: 22:59 Condition: FAIR
--- NOTE | 2016-09-21 22:34 | CT ---
EXAM: CT Angiography Chest With Intravenous Contrast CLINICAL HISTORY: 61 years old, female; Pain; Chest pain; Left-sided chest pain; Patient HX: Rt knee surgery august; Additional info: Elevated d-dimer, R/O pe TECHNIQUE: Axial computed tomographic angiography images of the chest with intravenous contrast using pulmonary embolism protocol. This CT exam was performed using one or more of the following dose reduction techniques: automated exposure control, adjustment of the mA and/or kV according to patient size, and/or use of iterative reconstruction technique. MIP reconstructed images were created and reviewed. Coronal and sagittal reformatted images were created and reviewed. CONTRAST: 75 mL of visipaque 320 administered intravenously. EXAM DATE/TIME: 09/21/2016 8:34 PM COMPARISON: No relevant prior studies available. FINDINGS: PULMONARY ARTERIES: Multiple filling defects are seen in the right pulmonary arteries, compatible with pulmonary emboli. There is clot in the right pulmonary artery/central clot, which extends into the right upper lobe pulmonary arteries. Emboli are also visualized in the right lower lobe pulmonary artery and in multiple segmental and subsegmental branches of this vessel. AORTA: No evidence of aortic dissection. LUNGS: Patchy densities in the posterior inferior lung bases bilaterally, most compatible with dependent atelectasis. Incidental 3 mm noncalcified pulmonary nodule in the right lung, image 45/series 5. In low-risk patients (minimal or absent history of smoking or other known risk factors), recommend CT at 12 months. If stable, no further follow-up. For high-risk patients (history of smoking or other known risk factors), recommend initial CT at 6-12 months. If stable, repeat CT at 18-24 months. No evidence of significant focal consolidation/infiltrate in the lungs. No evidence of diffuse pulmonary vascular congestion. PLEURAL SPACE: No pneumothorax or pleural effusions seen. HEART: Heart appears mildly enlarged. No evidence of significant pericardial effusion. BONES/JOINTS: Multiple vertebral hemangiomas incidentally noted. No acute fractures or other acute bony abnormality visualized. LYMPH NODES: No evidence of diffuse lymphadenopathy. IMPRESSION: - Right-sided pulmonary emboli, including centrally-located clot, in the right pulmonary artery. - Incidental 5 pumonary nodule. See recommendations above. - See above for remaining findings.
[2016-09-21] MEDS ORDERED: Enoxaparin 120 mg Syringe SC STA (22:47)
[2016-09-22 08:37] LABS: HEMATOCRIT 29.7 % (34.0-47.0); MEAN CELL VOLUME 86.6 fl (81.0-99.0); MEAN CORPUSCULAR HGB CONC 32.4 g/dL (33.0-37.0); RED CELL DISTRIBUTION WIDTH 13.9 % (11.5-14.5); WHITE BLOOD COUNT 7.8 K/uL (4.8-10.8)
[2016-09-22] MEDS ORDERED: OMEGA ACID ETHYL ESTERS PO SCH (09:00)
[2016-09-22] MEDS ORDERED: Enoxaparin 120 mg Syringe SC SCH (09:00)
--- NOTE | 2016-09-22 09:27 | US ---
PROCEDURE: Bilateral lower extremity venous duplex Doppler. HISTORY: pt has PE, recent right knee surgery COMPARISON: None available. TECHNIQUE: Bilateral common femoral, superficial femoral, popliteal and posterior tibial veins were evaluated. Flow was assessed with color Doppler, compressibility, assessment of phasic flow and augmentation response. FINDINGS: COMMON FEMORAL VEIN: Right CFV: Unremarkable. Left CFV: Unremarkable. SUPERFICIAL FEMORAL VEIN: Right SFV: Unremarkable. Left SFV: Unremarkable. POPLITEAL VEIN: Right Popliteal: Unremarkable. Left Popliteal: Unremarkable. POSTERIOR TIBIAL VEIN: Right PTV: Unremarkable. Left PTV: Unremarkable. OTHER FINDINGS: None. IMPRESSION: No evidence of deep venous thrombosis.
[2016-09-22] MEDS: Omega-3-Acid Ethyl Esters 1 GM Cap PO SCH ×3 (11:13→16:20)
[2016-09-22] MEDS: Pantoprazole 40 mg EC Tab PO SCH (11:26)
[2016-09-22] MEDS ORDERED: Oxycodone/Acetaminophen 5/325 mg Tab PO PRN (12:39)
--- NOTE | 2016-09-22 12:39 | CARD ---
APPROVED REPORT EKG Measurement Heart [id number] <Conclusion> Sinus tachycardia Cannot rule out Anterior infarct, age undetermined-not diagnostic Abnormal ECG
--- NOTE | 2016-09-22 13:52 | HP ---
HISTORY OF PRESENT ILLNESS: The patient is a 61-year-old female admitted to regular medical floor vi a the Emergency Room after she presented from subacute care assisted with left-sided chest pain t hat was sudden in onset. She had a CT scan of the chest done which was remarkable for right-sided pu lmonary emboli. She was therefore admitted for workup and therapy for pulmonary embolism. She recen tly had a right lower extremity knee replacement surgery and was referred to the assisted for sub acute care. PAST MEDICAL HISTORY: Hypertension, diabetes mellitus, and arthritis. FAMILY HISTORY: Nonrevealing. SOCIAL HISTORY: She denies smoking or alcohol use. REVIEW OF SYSTEMS: Essentially unremarkable. PHYSICAL EXAMINATION: GENERAL: The patient is alert, oriented, appears to be in moderate distress because of left-sided an terior chest wall pain. VITAL SIGNS: Blood pressure 132/76 with a pulse of 92, respirations 16 per minute. She is afebrile. O2 sat 98%. SKIN: Shows fair turgor. HEENT: Pupils equal, react to light and accommodation. NECK: JVP flat. Mouth shows fair hygiene. LUNGS: Fair aeration. HEART: Regular. No murmurs or gallops. There is a left anterior chest wall tenderness which appear s muscular. ABDOMEN: Soft, nontender, no organomegaly, but there is a ____ abdominal hernia. EXTREMITIES: Show no edema or cyanosis except for scar of right knee replacement surgery with mild e marleen and tenderness. LABORATORY DATA: WBC 12.8, hemoglobin 10.3, platelet count 262,000. Sodium 140, potassium 4.4, BUN 21, creatinine 0.7. Troponin less than 0.012. CT scan of the chest is remarkable for right-sided pu lmonary emboli including centrally located clot in the right pulmonary artery, incidental [address] pulmonary nodules [address]. Repeat CT scan in several months advised. EKG: Sinus tachycardia. IMPRESSION: Acute pulmonary emboli, sinus tachycardia secondary to pulmonary emboli, history of diab etes, history of hypertension. PLAN: Analgesics for pain, Lovenox subQ, already ordered. Would continue the Lovenox for at least 4 8 hours and then will switch to oral Xarelto prior to discharge home. Shady Mahan MD cc: 61 TT: 09/22/2016 13:52:18 jn
[2016-09-22] MEDS: Insulin Regular 100 units/ml SC SCH ×2 (16:16→22:11)
[2016-09-22 17:12] LABS: ALB/GLOB RATIO 1.2 (1.0-2.1); ALKALINE PHOSPHATASE 84 U/L (38-126); ALT/SGPT 24 U/L (9-52); AST/SGOT 22 U/L (14-36); BILIRUBIN,TOTAL 0.4 mg/dl (0.2-1.3); BLOOD UREA NITROGEN 18 mg/dl (7-17); CALCIUM 9.4 mg/dL (8.4-10.2); CARBON DIOXIDE 26 mmol/L (22-30); CHLORIDE 97 mmol/L (98-107); GFR AFRICAN-AMERICAN > 60; GLUCOSE,RANDOM 137 mg/dL (65-105); POTASSIUM 4.5 MMOL/L (3.6-5.0); SODIUM 136 mmol/l (132-148); TOTAL PROTEIN 7.7 G/DL (6.3-8.2)
[2016-09-22] MEDS: Enoxaparin 80 mg Syringe SC SCH ×2 (17:37→22:12)
[2016-09-22 18:31] LABS: HEMATOCRIT 31.2 % (34.0-47.0); MEAN CELL VOLUME 86.2 fl (81.0-99.0); MEAN CORPUSCULAR HEMOGLOBIN 28.2 pg (27.0-31.0); MEAN CORPUSCULAR HGB CONC 32.7 g/dL (33.0-37.0); RED CELL DISTRIBUTION WIDTH 13.9 % (11.5-14.5)
[2016-09-23] MEDS: Enoxaparin 80 mg Syringe SC SCH ×2 (05:42→17:00)
[2016-09-23] MEDS: Insulin Regular 100 units/ml SC SCH ×4 (06:32→22:54)
[2016-09-23] MEDS: Pantoprazole 40 mg EC Tab PO SCH (08:31)
[2016-09-23] MEDS: Omega-3-Acid Ethyl Esters 1 GM Cap PO SCH ×2 (08:31→16:55)
--- NOTE | 2016-09-23 11:18 | CP.PCM.PN ---
Subjective - Date & Time of Evaluation Date of Evaluation: 09/23/16 Time of Evaluation: 11:18 - Subjective Subjective: L PLEURITIC CHEST PAIN LESS NO COUGH OR SOB Objective - Vital Signs/Intake and Output Vital Signs (last 24 hours): Temp Pulse Resp BP Pulse Ox 98.2 F 90 18 97/64 L 97 09/23/16 09:00 09/23/16 09:00 09/23/16 09:00 09/23/16 09:00 09/23/16 09:00 - Medications Medications: Current Medications Acetaminophen (Tylenol 325mg Tab) 650 mg PO Q4H PRN PRN Reason: Fever >101.0 F Atorvastatin Calcium (Lipitor) 40 mg PO DAILY [facility] Last Admin: 09/23/16 08:31 Dose: 40 mg Enoxaparin Sodium (Lovenox) 80 mg SC Q12@0530,1730 [facility] PRN Reason: Protocol Last Admin: 09/23/16 05:42 Dose: 80 mg Home Med (Canagliflozin [Invokana]) 300 mg PO QAM [facility] Insulin Human Regular (Humulin R) 0 units SC ACHS [facility] PRN Reason: Protocol Last Admin: 09/23/16 06:32 Dose: Not Given Metformin HCl (Glucophage) 1,000 mg PO BID [facility] Last Admin: 09/23/16 08:30 Dose: 1,000 mg Morphine Sulfate (Morphine) 2 mg IVP Q4 PRN PRN Reason: Pain, moderate (4-7) Last Admin: 09/23/16 05:46 Dose: 2 mg [id number] Ethyl Esters (Lovaza) 1 gm PO BID [facility] Last Admin: 09/23/16 08:31 Dose: 1 gm Oxycodone/Acetaminophen (Percocet 5/325 Mg Tab) 1 tab PO Q4 PRN PRN Reason: Pain, Mild (1-3) Stop: 09/25/16 12:40 Pantoprazole Sodium (Protonix Ec Tab) 40 mg PO DAILY [facility] Last Admin: 09/23/16 08:31 Dose: 40 mg Valsartan (Diovan) 160 mg PO DAILY [facility] Last Admin: 09/23/16 08:31 Dose: 160 mg - Labs Labs: 09/22/16 17:39 09/22/16 16:39 PT 10.7 SECONDS (9.6-11.2) 09/22/16 08:15 INR 1.03 (0.92-1.08) 09/22/16 08:15 APTT 28.2 SECONDS (23.3-32.5) 09/22/16 16:39 - Constitutional Appears: No Acute Distress - Head Exam Head Exam: ATRAUMATIC, NORMAL INSPECTION, NORMOCEPHALIC - Eye Exam Eye Exam: EOMI, Normal appearance, PERRL Pupil Exam: NORMAL ACCOMODATION, PERRL - ENT Exam ENT Exam: Mucous Membranes Moist, Normal Exam - Neck Exam Neck Exam: Full ROM, Normal Inspection. absent: Lymphadenopathy - Respiratory Exam Respiratory Exam: Clear to Ausculation Bilateral, NORMAL BREATHING PATTERN Additional comments: TENDER L ANTERIOR CHEST WALL - Cardiovascular Exam Cardiovascular Exam: REGULAR RHYTHM, +S1, +S2. absent: Murmur - GI/Abdominal Exam GI & Abdominal Exam: Soft, Normal Bowel Sounds. absent: Tenderness - Rectal Exam Rectal Exam: NORMAL INSPECTION - Extremities Exam Extremities Exam: Full ROM, Normal Capillary Refill, Normal Inspection. absent : Joint Swelling, Pedal Edema - Back Exam Back Exam: NORMAL INSPECTION - Neurological Exam Neurological Exam: Alert, Awake, CN II-XII Intact, Normal Gait, Oriented x3 - Psychiatric Exam Psychiatric exam: Normal Affect, Normal Mood - Skin Skin Exam: Dry, Intact, Normal Color, Warm Assessment and Plan - Assessment and Plan (Free Text) Assessment: PULMONARY EMBOLI L MUSCULOSKELETAL CHEST DISCOMFORT S/P KNEE SURGERY Plan: CONTINUE ANTICOAGULATION RX WILL PROBABLY D/C HOME IN AM ON XARALTO BID AND ANALGESICS
[2016-09-24] MEDS: Enoxaparin 80 mg Syringe SC SCH (04:50)
[2016-09-24] MEDS: Insulin Regular 100 units/ml SC SCH (06:52)
[2016-09-24] MEDS: Pantoprazole 40 mg EC Tab PO SCH (08:52)
[2016-09-24] MEDS: Omega-3-Acid Ethyl Esters 1 GM Cap PO SCH (08:52)
[2016-09-24 09:00] VITALS: BP 110/68; PULSE 92; RESP 20; TEMP 98.4; O2SAT 96
--- NOTE | 2016-09-24 10:03 | CP.PCM.DIS ---
Provider - Provider Date of Admission: 09/21/16 22:55 Attending physician: Shady Mahan MD Time Spent in preparation of Discharge (in minutes): 35 Diagnosis - Discharge Diagnosis (1) Pulmonary embolism Status: Acute (2) Status post revision of total knee replacement Status: Acute (3) DM type 2 (diabetes mellitus, type 2) Status: Chronic (4) HTN (hypertension) Status: Chronic (5) History of total knee replacement Status: Chronic (6) Hyperlipidemia Status: Chronic (7) Right knee pain Status: Chronic Hospital Course - Lab Results Lab Results: Most Recent Lab Values WBC 10.0 K/uL (4.8-10.8) 09/22/16 17:39 RBC 3.62 Mil/uL (3.80-5.20) L 09/22/16 17:39 Hgb 10.2 g/dL (12.0-16.0) L 09/22/16 17:39 Hct 31.2 % (34.0-47.0) L 09/22/16 17:39 MCV 86.2 fl (81.0-99.0) 09/22/16 17:39 MCH 28.2 pg (27.0-31.0) 09/22/16 17:39 MCHC 32.7 g/dL (33.0-37.0) L 09/22/16 17:39 RDW 13.9 % (11.5-14.5) 09/22/16 17:39 Plt Count 265 K/uL (130-400) 09/22/16 17:39 MPV 8.1 fl (7.2-11.7) 09/21/16 17:43 Neut % (Auto) 73.1 % (50.0-75.0) 09/21/16 17:43 Lymph % (Auto) 17.3 % (20.0-40.0) L 09/21/16 17:43 [place] % (Auto) 7.3 % (0.0-10.0) 09/21/16 17:43 Eos % (Auto) 1.3 % (0.0-4.0) 09/21/16 17:43 Baso % (Auto) 1.0 % (0.0-2.0) 09/21/16 17:43 Neut # 9.4 K/uL (1.8-7.0) H 09/21/16 17:43 Lymph # 2.2 K/uL (1.0-4.3) 09/21/16 17:43 [place] # 0.9 K/uL (0.0-0.8) H 09/21/16 17:43 Eos # 0.2 K/uL (0.0-0.7) 09/21/16 17:43 Baso # 0.1 K/uL (0.0-0.2) 09/21/16 17:43 PT 10.7 SECONDS (9.6-11.2) 09/22/16 08:15 INR 1.03 (0.92-1.08) 09/22/16 08:15 APTT 28.2 SECONDS (23.3-32.5) 09/22/16 16:39 D-Dimer, Quantitative 4.50 mg/L FEU (0-0.50) H 09/21/16 17:43 Sodium 136 mmol/l (132-148) 09/22/16 16:39 Potassium 4.5 MMOL/L (3.6-5.0) 09/22/16 16:39 Chloride 97 mmol/L (98-107) L 09/22/16 16:39 Carbon Dioxide 26 mmol/L (22-30) 09/22/16 16:39 Anion Gap 18 (10-20) 09/22/16 16:39 BUN 18 mg/dl (7-17) H 09/22/16 16:39 Creatinine 0.7 mg/dL (0.7-1.2) 09/22/16 16:39 Est GFR ( Amer) > 60 09/22/16 16:39 Est GFR (Non-Af Amer) > 60 09/22/16 16:39 POC Glucose (mg/dL) 154 mg/dL (65-110) H 09/24/16 05:25 Random Glucose 137 mg/dL (65-105) H 09/22/16 16:39 Calcium 9.4 mg/dL (8.4-10.2) 09/22/16 16:39 Total Bilirubin 0.4 mg/dl (0.2-1.3) 09/22/16 16:39 AST 22 U/L (14-36) 09/22/16 16:39 ALT 24 U/L (9-52) 09/22/16 16:39 Alkaline Phosphatase 84 U/L (38-126) 09/22/16 16:39 Troponin I < 0.0120 ng/mL (0.00-0.120) 09/21/16 17:43 Total Protein 7.7 G/DL (6.3-8.2) 09/22/16 16:39 Albumin 4.3 g/dL (3.5-5.0) 09/22/16 16:39 Globulin 3.4 gm/dL (2.2-3.9) 09/22/16 16:39 Albumin/Globulin Ratio 1.2 (1.0-2.1) 09/22/16 16:39 Urine Color Yellow (YELLOW) 09/21/16 18:35 Urine Clarity Cloudy (Clear) 09/21/16 18:35 Urine pH 6.0 (5.0-8.0) 09/21/16 18:35 Ur Specific [place] 1.031 (1.003-1.030) H 09/21/16 18:35 Urine Protein Negative mg/dL (NEGATIVE) 09/21/16 18:35 Urine Glucose (UA) >=500 mg/dL (Normal) 09/21/16 18:35 Urine Ketones Negative mg/dL (NEGATIVE) 09/21/16 18:35 Urine Blood Negative (NEGATIVE) 09/21/16 18:35 Urine Nitrate Negative (NEGATIVE) 09/21/16 18:35 Urine Bilirubin Negative (NEGATIVE) 09/21/16 18:35 Urine Urobilinogen 0.2-1.0 mg/dL (0.2-1.0) 09/21/16 18:35 Ur Leukocyte Esterase Mod [place]/uL (Negative) 09/21/16 18:35 Urine RBC (Auto) 224 /hpf (0-3) H 09/21/16 18:35 Urine Microscopic WBC 191 /hpf (0-5) H 09/21/16 18:35 Ur Squamous Epith Cells 19 /hpf (0-5) H 09/21/16 18:35 Urine Bacteria Few (<OCC) H 09/21/16 18:35 Urine Yeast (Budding) Mod /hpf (NEGATIVE) H 09/21/16 18:35 - Hospital Course Hospital Course: CHEST PAIN IMPROVED KNEE PAIN IMPROVED NO SHORTNESS OF BREATH Discharge Exam - Head Exam Head Exam: ATRAUMATIC, NORMAL INSPECTION, NORMOCEPHALIC - Eye Exam Eye Exam: EOMI, Normal appearance, PERRL Pupil Exam: NORMAL ACCOMODATION, PERRL - GI/Abdominal Exam GI & Abdominal Exam: Normal Bowel Sounds - Rectal Exam Rectal Exam: NORMAL INSPECTION - Extremities Exam Extremities exam: tenderness Additional comments: KNEE PAIN IMPROVED - Neurological Exam Neurological exam: Alert, CN II-XII Intact, Normal Gait, Oriented x3, Reflexes Normal - Psychiatric Exam Psychiatric exam: Normal Affect, Normal Mood - Skin Skin Exam: Dry, Intact, Normal Color, Warm Discharge Plan - Follow Up Plan Condition: FAIR Disposition: HOME/ ROUTINE Patient education suggested?: Yes Additional Instructions: DISCHARGE TODAY ON PERCOCET,PRN--20 AND XARELTO 15 MG BID FOLLOW UP WITH DR WEBSTER AND PMCheryl
== END 2016-09-24 12:37 | disposition home or self-care (01) | DRG 176 ==
LOC: H.ER 16:36 → H.ERHOLD 22:55 → H.TEL 09-22 12:37
PROVIDERS: ADMIT Internal Medicine Pulmonary Disease; ATTEND Internal Medicine Pulmonary Disease
DX: I26.99 Other pulmonary embolism without acute cor pulmonale (principal); E11.22 Type 2 diabetes mellitus with diabetic chronic kidney disease; I12.9 Hypertensive chronic kidney disease with stage 1 through stage 4 chronic kidney disease, or unspecified chronic kidney disease; N18.9 Chronic kidney disease, unspecified; Z96.651 Presence of right artificial knee joint; E78.00 Pure hypercholesterolemia, unspecified; E78.5 Hyperlipidemia, unspecified; Z88.6 Allergy status to analgesic agent; R00.0 Tachycardia, unspecified; M25.561 Pain in right knee; M19.90 Unspecified osteoarthritis, unspecified site

== ENCOUNTER 2016-10-08 22:12 | Inpatient (IN) | payer MEDICARE ==
[2016-10-08 22:13] VITALS: BMI 30.6
--- NOTE | 2016-10-08 22:47 | ED PDOC ---
Lower Extremity Pain/Injury Time Seen by Provider: 10/08/16 22:25 Chief Complaint (Nursing): Lower Extremity Problem/Injury Chief Complaint (Provider): right knee pain History Per: Patient History/Exam Limitations: no limitations Onset/Duration Of Symptoms: Hrs (1) Current Symptoms Are (Timing): Still Present Additional History Per: Patient Additional Complaint(s): 61 y/o female brought in by EMS for eval of right knee pain x 1 hour. Patient had revision of right knee replacement 08/28/[address] Berry. Patient states she saw him 09/29 for knee pain/discharge coming from surgical site, was started on Levaquin. Patient noted improvement after Levaquin finished, had f/up appt Sunday. Patient states she was lying down tonight when she noted pain to right knee. Denies fever, nausea/vomiting, numbness/weakness right lower extremity. Patient ambulates with walker but has not been to PT in 2 weeks due to infection. Patient notes admission to hospital 09/21 for pulmonary embolism, on xarelto. Past Medical History Reviewed: Historical Data, Nursing Documentation, Vital Signs Vital Signs: Last Vital Signs Temp 98.9 F 10/08/16 22:16 Pulse 99 H 10/08/16 22:16 Resp 16 10/08/16 22:16 BP 132/66 10/08/16 22:16 Pulse Ox 100 10/08/16 22:16 - Medical History PMH: Arthritis, Diabetes, HTN, Hypercholesterolemia, Kidney Stones, Chronic Kidney Disease Denies: Depression - Surgical History Surgical History: Appendectomy, Hernia Repair, Tonsillectomy Denies: Pacemaker - Family History Family History: States: Unknown Family Hx - Immunization History Hx Tetanus Toxoid Vaccination: No Hx Influenza Vaccination: No Hx Pneumococcal Vaccination: No - Home Medications Home Medications: Ambulatory Orders Medication Instructions Recorded Metformin HCl 1,000 mg PO BID 01/31/12 Insulin Glargine,Hum.rec.anlog 40 unit SC BID 02/01/15 [Lantus] Canagliflozin [Invokana] 300 mg PO QAM 02/03/16 Rosuvastatin Calcium [Crestor] 20 mg PO DAILY 02/03/16 [id number] Ethyl Esters [OMEGA 3] 1 tab PO BID 02/26/16 Esomeprazole Magnesium [Nexium] 40 mg PO DAILY 07/19/16 Valsartan [Diovan] 160 mg PO DAILY 07/19/16 Aspirin [Ecotrin] 81 mg PO BID tabec 08/30/16 Docusate [Colace] 100 mg PO BID cap 08/30/16 Fluocinonide 0.05% Ointment [Lidex 1 applic TOP BID tube 08/30/16 0.05% Oint] Acetaminophen [Tylenol 325mg tab] 650 mg PO Q4H PRN 09/21/16 Acetaminophen [Tylenol 325mg tab] 650 mg PO Q4H PRN 09/21/16 oxyCODONE/Acetaminophen [Percocet 1 tab PO Q4 PRN tab 09/24/16 5/325 mg Tab] Rivaroxaban [Xarelto] 1 tab PO DAILY 10/09/16 - Allergies Allergies/Adverse Reactions: Allergies Allergy/AdvReac Type Severity Reaction Status Date / Time codeine Allergy Severe HALLUCINATI Verified 09/21/16 16:41 ONS Review of Systems ROS Statement: Except As Marked, All Systems Reviewed And Found Negative Musculoskeletal: Positive for: Leg Pain (right knee) Physical Exam - Reviewed Nursing Documentation Reviewed: Yes Vital Signs Reviewed: Yes - Physical Exam Appears: Positive for: Well, Non-toxic, Uncomfortable Head Exam: Positive for: ATRAUMATIC, NORMAL INSPECTION, NORMOCEPHALIC Skin: Positive for: Normal Color Eye Exam: Positive for: Normal appearance ENT: Positive for: Normal ENT Inspection Cardiovascular/Chest: Positive for: Regular Rate, Rhythm Respiratory: Positive for: Normal Breath Sounds Pulses-Dorsalis Pedis (L): 2+ Pulses-Dorsalis Pedis (R): 2+ Extremity: Positive for: Calf Tenderness (right), Other (vertical healing surgical incision site right knee extending proximally and distally with mild surrounding erythema, dry central eschar noted. Tender to palpate. No drainage, surrounding fluctuance noted). Negative for: Normal ROM (limited ROM right knee due to pain/post-op) Neurologic/Psych: Positive for: Alert, Oriented. Negative for: Motor/Sensory Deficits - Laboratory Results Result Diagrams: 10/09/16 04:00 10/08/16 22:57 - ECG ECG: Positive for: Viewed By Me (reviewed by ED attending) ECG Rhythm: Positive for: Sinus Tachycardia O2 Sat by Pulse Oximetry: 100 Pulse Ox Interpretation: Normal - Radiology X-Ray: Viewed By Me X-Ray Interpretation: No Acute Disease - Progress ED Course And Treament: labs, venous duplex right lower extremity, CT right lower extremity IV contrast IV vanco, IV zosyn given for cellulitis Addendum created by Jai Scott MD on 10/09/2016 4:30 AM Eastern Time ([place] & [place]) THIS REPORT CONTAINS FINDINGS THAT MAY BE CRITICAL TO PATIENT CARE. The findings were verbally communicated via telephone conference with physician assistant professor of theater Frieda Chavez PA-C at 4:30 AM EDT on 10/09/2016. The findings were acknowledged and understood. Addendum created by Jai Scott MD on 10/09/2016 4:24 AM Eastern Time ([place] & [place]) PLEASE DISREGARD PREVIOUS DICTATION EXAM: CT Right Lower Extremity With Intravenous Contrast, Knee CLINICAL HISTORY: 61 years old, female; Pain; Knee; Right; Prior surgery; Surgery date: 1-6 months ; Surgery type: Rt knee replacement; Additional info: Knee pain TECHNIQUE: Axial computed tomography images of the right knee with intravenous contrast. This CT exam was performed using one or more of the following dose reduction techniques: automated exposure control, adjustment of the mA and/or kV according to patient size, and/or use of iterative reconstruction technique. Coronal and sagittal reformatted images were created and reviewed. CONTRAST: 95 mL of OMNIPAQUE 300 administered intravenously. COMPARISON: No relevant prior studies available. FINDINGS: Limitations: Streak artifact - moderate. Bones/joints: Total knee arthroplasty. No hardware loosening. Metallic density within anterior proximal tibia. No acute fracture. No dislocation. Soft tissues: Mild stranding within subcutaneous tissues. 5.7 x 7.8 x 1.5 cm peripherally enhancing fluid collection about knee at level of joint space, contiguous with spacer, suboptimally evaluated due to streak artifact. Vasculature: Mild atherosclerotic disease. IMPRESSION: 1. Limited examination. Peripherally enhancing fluid collection about joint space, indeterminate. Abscess not excluded. Clinical correlation and follow up are recommended. 2. Incidental/non-acute findings are described above. Initial Report created on 10/09/2016 3:37 AM Eastern Time ([place] & [place]) Patient evaluated by Dr. Bradford, Hospiatlist on-call, for admission Case discussed with Dr. Berry for am consult Disposition - Clinical Impression Clinical Impression: Cellulitis - Patient ED Disposition Is Patient to be Admitted: Yes - Disposition Disposition Time: 02:30 Condition: FAIR - Pt Status Changed To: Hospital Disposition Of: Inpatient - Admit Certification Admit to Inpatient:: After my assessment, the patient will require hospitalization for at least two midnights. This is because of the severity of symptoms shown, intensity of services needed, and/or the medical risk in this patient being treated as an outpatient.
[2016-10-08 23:05] LABS: BASO # 0.1 K/uL (0.0-0.2); BASO % 0.6 % (0.0-2.0); EOS # 0.1 K/uL (0.0-0.7); EOS % 0.9 % (0.0-4.0); HEMATOCRIT 34.7 % (34.0-47.0); LYMPH # 1.4 K/uL (1.0-4.3); LYMPH % 10.5 % (20.0-40.0); MEAN CELL VOLUME 85.8 fl (81.0-99.0); MEAN CORPUSCULAR HGB CONC 32.6 g/dL (33.0-37.0); MEAN PLATELET VOLUME 8.1 fl (7.2-11.7); MONO # 0.8 K/uL (0.0-0.8); MONO % 6.2 % (0.0-10.0); NEUT # 11.2 K/uL (1.8-7.0); NEUT % 81.8 % (50.0-75.0); RED CELL DISTRIBUTION WIDTH 14.4 % (11.5-14.5); WHITE BLOOD COUNT 13.7 K/uL (4.8-10.8)
[2016-10-08 23:11] LABS: ALB/GLOB RATIO 1.2 (1.0-2.1); ALKALINE PHOSPHATASE 87 U/L (38-126); ALT/SGPT 24 U/L (9-52); AST/SGOT 28 U/L (14-36); BILIRUBIN,TOTAL 0.4 mg/dl (0.2-1.3); BLOOD UREA NITROGEN 21 mg/dl (7-17); CALCIUM 9.8 mg/dL (8.4-10.2); CARBON DIOXIDE 28 mmol/L (22-30); CHLORIDE 98 mmol/L (98-107); GFR AFRICAN-AMERICAN > 60; GLUCOSE,RANDOM 202 mg/dL (65-105); POTASSIUM 3.8 MMOL/L (3.6-5.0); SODIUM 138 mmol/l (132-148)
[2016-10-08] MEDS ORDERED: HYDROmorphone 0.5 mg/0.5 ml ISec IVP ONE (23:15)
[2016-10-09] MEDS ORDERED: Piperacillin/Tazobact 3.375 GM in Sodium Chloride 0.9% 100 ML IV ONE (00:24)
--- NOTE | 2016-10-09 00:59 | US ---
EXAM: US Duplex Right Lower Extremity Veins CLINICAL HISTORY: 61 years old, female; Pain; Leg, lower; Right; Prior surgery; Surgery date: 1-6 months; Surgery type: Right knee replacement 09/07/2016; Additional info: Pain/swelling right le TECHNIQUE: Real-time ultrasound scan of the veins of the right lower extremity with color Doppler flow, spectral waveform analysis and compression. COMPARISON: No relevant prior studies available. FINDINGS: Limitations: Limited mobility. Deep veins: Normal color and spectral Doppler flow. Normal compressibility. No deep vein thrombosis from common femoral to posterior tibial vein. Popliteal vein not imaged due to limitations. Superficial veins: No thrombosis. Soft tissues: No popliteal cyst. IMPRESSION: 1. No evidence of DVT within visualized LEFT lower extremity. 2. Incidental/non-acute findings are described above.
[2016-10-09] MEDS ORDERED: Vancomycin 1 g Inj ONE (01:18)
[2016-10-09] MEDS ORDERED: HYDROmorphone 0.5 mg/0.5 ml ISec IVP ONE (01:25)
--- NOTE | 2016-10-09 03:11 | CP.PCM.HP ---
History of Present Illness - History of Present Illness History of Present Illness: CC: L knee pain, swelling, redness HPI: This is a 61 y/o female with MHx significant for HTN, DM2, and PE ( recently started on Xarelto) who comes in with L knee pain and swelling/warmth. Patient had had a L knee revision by Dr. Berry about 1 month ago. Earlier the past week, she developed redness and drainage from that knee and was given a course of LVQ. Patient completed the course and was seen in the office last Sunday, and appeared to have improved. Yesterday evening, patient developed progressively worsening pain/swelling/redness of the L knee to the point where she could not move or weight bear. Denies f/c/n/v/d. Denies drainage from the wound. ROS: 14 systems reviewed, negative other than HPI MHx: HTN, DM2, PE SHx: Appendix, hysterectomy, multiple times L knee, tonsils Allergies: Codeine, morphine Medications: As per med list Family Hx: Reviewed, no relevant findings Social Hx: Lives with family, no tobacco, no EtOH Surrogate: Son, Dima Whipple Present on Admission - Present on Admission Any Indicators Present on Admission: No Past Patient History - Infectious Disease Hx of Infectious Diseases: None - Tetanus Immunizations Tetanus Immunization: Unknown - Past Medical History & Family History Past Medical History?: Yes - Past Social History Smoking Status: Never Smoked - CARDIAC Hx Hypercholesterolemia: Yes Hx Hypertension: Yes Hx Pacemaker: No - PULMONARY Hx Respiratory Disorders: No - NEUROLOGICAL Hx Neurological Disorder: No Hx Syncope: Yes Other/Comment: Cerebral aneurysm - HEENT Hx HEENT Problems: No - RENAL Hx Chronic Kidney Disease: Yes Hx Kidney Stones: Yes - ENDOCRINE/METABOLIC Hx Endocrine Disorders: Yes Hx Diabetes Mellitus Type 2: Yes - HEMATOLOGICAL/ONCOLOGICAL Hx Blood Disorders: No - INTEGUMENTARY Hx Dermatological Problems: No - MUSCULOSKELETAL/RHEUMATOLOGICAL Hx Arthritis: Yes - GASTROINTESTINAL Hx Gastrointestinal Disorders: Yes Hx Gastroesophageal Reflux: Yes Other/Comment: Umbilical Hernia Repair - GENITOURINARY/GYNECOLOGICAL Hx Genitourinary Disorders: No - PSYCHIATRIC Hx Depression: No - SURGICAL HISTORY Hx Appendectomy: Yes Hx Tonsillectomy: Yes - ANESTHESIA Hx Anesthesia: Yes Hx Anesthesia Reactions: No Hx Malignant Hyperthermia: No Meds Allergies/Adverse Reactions: Allergies Allergy/AdvReac Type Severity Reaction Status Date / Time codeine Allergy Severe HALLUCINATI Verified 09/21/16 16:41 ONS Physical Exam - Constitutional Appears: No Acute Distress - Head Exam Head Exam: ATRAUMATIC, NORMOCEPHALIC - Eye Exam Eye Exam: EOMI, PERRL - ENT Exam ENT Exam: Mucous Membranes Moist - Neck Exam Neck exam: Positive for: Full Rom - Respiratory Exam Respiratory Exam: Clear to Auscultation Bilateral, NORMAL BREATHING PATTERN - Cardiovascular Exam Cardiovascular Exam: REGULAR RHYTHM, +S1, +S2 - GI/Abdominal Exam GI & Abdominal Exam: Normal Bowel Sounds, Soft - Rectal Exam Rectal Exam: NORMAL INSPECTION - Extremities Exam Additional comments: CC: L knee pain HPI: 61 y/o female with ROS: 14 systems reviewed, negative other than HPI MHx: HTN, DM2, recent DVT/PE on Xarelto SHX: Appx, Hernia, hysterectomy tonsils, multiple L knee surgeries Allergies: Codeine, also doesn't tolerate morphine Family Hx: no relevant findings Social Hx: Lives with family, no tobacco, no sig EtOH Surrogate: Dima Dozier, son; contact info on file Results - Vital Signs Recent Vital Signs: Last Vital Signs Temp 98.9 F 10/08/16 22:16 Pulse 99 H 10/08/16 22:16 Resp 16 10/08/16 22:16 BP 132/66 10/08/16 22:16 Pulse Ox 100 10/09/16 01:01 - Labs Result Diagrams: 10/09/16 04:00 10/08/16 22:57 - Imaging and Cardiology CT scan - pelvis Status: Report reviewed by me (Fluid collection about L knee joint space) Assessment & Plan (1) Status post revision of total knee replacement Assessment and Plan: 61 y/o female with HTN, DM2, and PE as well as recent L knee revision who comes in with L knee infection. 1) L knee revision/surgery -Continue Vanco/Zosyn IV started in ER -f/u cultures -Keep NPO this AM in case of procedure -Pain control as per scale -Consult [facility] ID -Consult [facility] 2) PE/DVT -Hold Xarelto this AM in case of procedure, resume if no procedure 3) DM2 -- ssi and accuchecks only while NPO 4) HTN -- continue home medications Status: Acute (2) Infection of knee Status: Acute (3) Pulmonary embolism Status: Acute (4) DM type 2 (diabetes mellitus, type 2) Status: Chronic (5) HTN (hypertension) Status: Chronic
[2016-10-09] MEDS: Insulin Lispro (humaLOG) 100 Units/ml Inj SC SCH ×4 (03:31→21:43)
--- NOTE | 2016-10-09 03:38 | CT ---
EXAM: CT Right Lower Extremity With Intravenous Contrast, Knee CLINICAL HISTORY: 61 years old, female; Pain; Knee; Right; Prior surgery; Surgery date: 1-6 months; Surgery type: Rt knee replacement; Additional info: Knee pain TECHNIQUE: Axial computed tomography images of the right knee with intravenous contrast. This CT exam was performed using one or more of the following dose reduction techniques: automated exposure control, adjustment of the mA and/or kV according to patient size, and/or use of iterative reconstruction technique. Coronal and sagittal reformatted images were created and reviewed. CONTRAST: 95 mL of OMNIPAQUE 300 administered intravenously. COMPARISON: No relevant prior studies available. FINDINGS: Limitations: Streak artifact - moderate. Bones/joints: Total knee arthroplasty. No hardware loosening. Metallic density within anterior proximal tibia. No acute fracture. No dislocation. Soft tissues: Mild stranding within subcutaneous tissues. No discrete peripherally enhancing fluid collection. Vasculature: Mild atherosclerotic disease. IMPRESSION: 1. Mild edema, nonspecific. 2. Incidental/non-acute findings are described above.
[2016-10-09] MEDS: Piperacillin/Tazobact 3.375 GM in Sodium Chloride 0.9% 100 ML IVPB SCH ×3 (04:00→16:34)
[2016-10-09 04:54] LABS: BASO # 0.1 K/uL (0.0-0.2); BASO % 0.4 % (0.0-2.0); EOS # 0.1 K/uL (0.0-0.7); EOS % 0.4 % (0.0-4.0); HEMATOCRIT 31.2 % (34.0-47.0); LYMPH # 1.3 K/uL (1.0-4.3); LYMPH % 8.9 % (20.0-40.0); MEAN CELL VOLUME 86.2 fl (81.0-99.0); MEAN CORPUSCULAR HEMOGLOBIN 27.4 pg (27.0-31.0); MEAN CORPUSCULAR HGB CONC 31.8 g/dL (33.0-37.0); MEAN PLATELET VOLUME 8.2 fl (7.2-11.7); MONO # 1.1 K/uL (0.0-0.8); MONO % 7.4 % (0.0-10.0); NEUT # 12.3 K/uL (1.8-7.0); NEUT % 82.9 % (50.0-75.0); PLATELET COUNT 205 K/uL (130-400); RED CELL DISTRIBUTION WIDTH 14.2 % (11.5-14.5); WHITE BLOOD COUNT 14.9 K/uL (4.8-10.8)
[2016-10-09] MEDS: HYDROmorphone 0.5 mg/0.5 ml ISec IVP PRN ×4 (05:47→21:18)
[2016-10-09 06:29] LABS: NEUTROPHIL 81 % (42-75); TOTAL CELLS COUNTED 100
[2016-10-09 06:30] LABS: EOSINOPHIL 1 % (0-7); PLATELET CLUMPS PRESENT
--- NOTE | 2016-10-09 08:34 | RAD ---
HISTORY: admit COMPARISON: CT from 09/21/2016 FINDINGS: LUNGS: Right paratracheal opacity remains stable. No other focal airspace opacity. PLEURA: No significant pleural effusion identified, no pneumothorax apparent.Biapical pleural parenchymal thickening noted. CARDIOVASCULAR: Mildly enlarged heart OSSEOUS STRUCTURES: The osseous structures demonstrate degenerative changes. VISUALIZED UPPER ABDOMEN: Upper abdomen is suboptimally evaluated. OTHER FINDINGS: None. IMPRESSION: Stable right paratracheal opacity.
[2016-10-09] MEDS: Sodium Chloride 0.9% 1,000 ML IV SCH ×2 (09:36→21:30)
[2016-10-09 10:41] LABS: RBC URINE 95 /hpf (0-3); URINE BACTERIA RARE (<OCC); URINE BILIRUBIN NEGATIVE (NEGATIVE); URINE BLOOD SMALL (NEGATIVE); URINE COLOR YELLOW (YELLOW); URINE GLUCOSE (UA) >=500 mg/dL (Normal); URINE KETONE NEGATIVE (NEGATIVE); URINE LEUKOCYTE ESTERASE TRACE Leu/uL (Negative); URINE PROTEIN NEGATIVE (NEGATIVE); URINE UROBILINOGEN 0.2-1.0 mg/dL (0.2-1.0)
[2016-10-09 10:42] LABS: WBC URINE 3 /hpf (0-5)
--- NOTE | 2016-10-09 10:54 | CARD ---
APPROVED REPORT EKG Measurement Heart [id number] <Conclusion> Sinus tachycardia Nonspecific ST abnormality Abnormal ECG
--- NOTE | 2016-10-09 12:28 | CP.PCM.CON ---
History of Present Illness - History of Present Illness History of Present Illness: ID: 61 yo female CC- No discrete knee pain; pain behind knee and most specisically ant and posterior aspect of tibia to ankle HPI_ pt underwent complex Revision TKR approx 3wks ago. Pt was treated at subacute and I was not notified of wound issues unti pt d/morgan. Further pt was readmitted thru ER with R/O PE; Pt was admitted to [facility] likewise I was not notified of THAT admission Pt presents to ER last PM with increasing discomfort not in R Knee but prox ant and post tibia radiating to foreleg Pt admitted to hospitalist- DR Sweeney/Heidi/ and DR Singletary called on consult. Dr Singletary has already seen and evaluated pt I discussed case with him- no evidence for deep infection Past Patient History - Infectious Disease Hx of Infectious Diseases: None - Tetanus Immunizations Tetanus Immunization: Unknown - Past Medical History & Family History Past Medical History?: Yes - Past Social History Smoking Status: Never Smoked - CARDIAC Hx Hypercholesterolemia: Yes Hx Hypertension: Yes Hx Pacemaker: No - PULMONARY Hx Respiratory Disorders: No - NEUROLOGICAL Hx Neurological Disorder: No Hx Syncope: Yes Other/Comment: Cerebral aneurysm - HEENT Hx HEENT Problems: No - RENAL Hx Chronic Kidney Disease: Yes Hx Kidney Stones: Yes - ENDOCRINE/METABOLIC Hx Endocrine Disorders: Yes Hx Diabetes Mellitus Type 2: Yes - HEMATOLOGICAL/ONCOLOGICAL Hx Blood Disorders: No - INTEGUMENTARY Hx Dermatological Problems: No - MUSCULOSKELETAL/RHEUMATOLOGICAL Hx Arthritis: Yes - GASTROINTESTINAL Hx Gastrointestinal Disorders: Yes Hx Gastroesophageal Reflux: Yes Other/Comment: Umbilical Hernia Repair - GENITOURINARY/GYNECOLOGICAL Hx Genitourinary Disorders: No - PSYCHIATRIC Hx Depression: No - SURGICAL HISTORY Hx Appendectomy: Yes Hx Tonsillectomy: Yes - ANESTHESIA Hx Anesthesia: Yes Hx Anesthesia Reactions: No Hx Malignant Hyperthermia: No Meds Allergies/Adverse Reactions: Allergies Allergy/AdvReac Type Severity Reaction Status Date / Time codeine Allergy Severe HALLUCINATI Verified 09/21/16 16:41 ONS - Medications Medications: Current Medications Acetaminophen (Tylenol 325mg Tab) 650 mg PO Q6 PRN PRN Reason: Pain, Mild (1-3) Acetaminophen (Tylenol 325mg Tab) 650 mg PO Q6 PRN PRN Reason: Fever >100.4 F Atorvastatin Calcium (Lipitor) 40 mg PO DAILY CHERELLE Docusate Sodium (Colace) 100 mg PO BID CHERELLE Hydromorphone HCl (Dilaudid) 0.5 mg IVP Q3H PRN PRN Reason: Pain, moderate (4-7) Last Admin: 10/09/16 09:27 Dose: 0.5 mg Hydromorphone HCl (Dilaudid) 1 mg IVP Q3H PRN PRN Reason: Pain, severe (8-10) Piperacillin Sod/Tazobactam (Sod 3.375 gm/ Sodium Chloride) 100 mls @ 100 mls/ hr IVPB Q6 CHERELLE Last Admin: 10/09/16 09:54 Dose: 100 mls/hr Sodium Chloride (Sodium Chloride 0.9%) 1,000 mls @ 80 mls/hr IV .[id number] [facility] Stop: 10/10/16 08:37 Last Admin: 10/09/16 09:36 Dose: 80 mls/hr Vancomycin HCl 1 gm/ Sodium (Chloride) 250 mls @ 166.667 mls/hr IVPB Q12@0200, 1400 [facility] Insulin Human Lispro (Humalog) 0 units SC Q6H CHERELLE PRN Reason: Protocol Last Admin: 10/09/16 09:35 Dose: Not Given Pantoprazole Sodium (Protonix Ec Tab) 40 mg PO DAILY [facility] Valsartan (Diovan) 160 mg PO DAILY [facility] Physical Exam - Additional Findings Additional findings: Physical exam Systemic- as per DR Sweeney and DR Xie Musculoskeltal stance/gait- deferred ROM- R knee restricted N/V intact No increased pain on passive flexion/dorsiflexion area of skin excoriation superficial to patella No evidence of drainage- purulent or otherwise No evidence for deep sepsis pt with erythema and tenderness tibia R NO EVIDENCE# for deep sepsis knee, even in the face of wound excoriation Results - Vital Signs Recent Vital Signs: Last Vital Signs Temp 99.2 F 10/09/16 08:07 Pulse 99 H 10/09/16 08:07 Resp 20 10/09/16 08:07 BP 111/69 10/09/16 08:07 Pulse Ox 97 10/09/16 08:07 - Labs Result Diagrams: 10/09/16 04:00 10/08/16 22:57 Labs: Laboratory Results - last 24 hr 05/29/17 05/29/17 05/29/17 03:28 04:00 04:00 WBC 14.9 H RBC 3.62 L Hgb 9.9 L Hct 31.2 L MCV 86.2 MCH 27.4 MCHC 31.8 L RDW 14.2 Plt Count 205 MPV 8.2 Neut % (Auto) 82.9 H Lymph % (Auto) 8.9 L [place] % (Auto) 7.4 Eos % (Auto) 0.4 Baso % (Auto) 0.4 Neut # 12.3 H Lymph # 1.3 [place] # 1.1 H Eos # 0.1 Baso # 0.1 Neutrophils % (Manual) 81 H Band Neutrophils % 1 Lymphocytes % (Manual) 11 L Monocytes % (Manual) 6 Eosinophils % (Manual) 1 Platelet Estimate Normal Plt Clumps, EDTA Present Hypochromasia (manual) Slight PT INR APTT POC Glucose (mg/dL) 181 H Total Creatine Kinase 23 L Urine Color Urine Clarity Urine pH Ur Specific Equality Urine Protein Urine Glucose (UA) Urine Ketones Urine Blood Urine Nitrate Urine Bilirubin Urine Urobilinogen Ur Leukocyte Esterase Urine RBC (Auto) Urine Microscopic WBC Ur Squamous Epith Cells Urine Bacteria Urine Yeast (Budding) 10/09/16 10/09/16 10/09/16 04:15 05:49 10:16 WBC RBC Hgb Hct MCV MCH MCHC RDW Plt Count MPV Neut % (Auto) Lymph % (Auto) [place] % (Auto) Eos % (Auto) Baso % (Auto) Neut # Lymph # [place] # Eos # Baso # Neutrophils % (Manual) Band Neutrophils % Lymphocytes % (Manual) Monocytes % (Manual) Eosinophils % (Manual) Platelet Estimate Plt Clumps, EDTA Hypochromasia (manual) PT 10.6 INR 1.02 APTT 26.0 POC Glucose (mg/dL) 206 H Total Creatine Kinase Urine Color Yellow Urine Clarity Slighty-cloudy Urine pH 6.0 Ur Specific [place]ality 1.043 H Urine Protein Negative Urine Glucose (UA) >=500 Urine Ketones Negative Urine Blood Small Urine Nitrate Negative Urine Bilirubin Negative Urine Urobilinogen 0.2-1.0 Ur Leukocyte Esterase Trace Urine RBC (Auto) 95 H Urine Microscopic WBC 3 Ur Squamous Epith Cells 3 Urine Bacteria Rare Urine Yeast (Budding) Few H - EKG Data EKG comments: Imaging CT scan exam reveals excellent position of construct/ remainder of reading is equivocal Assessment & Plan - Assessment and Plan (Free Text) Assessment: A- cellulitis S/P successful Revision TKR P recommend prophylactic IV abios x 3wks wound mgmt as per DR Luis Felipe Singletary case discussed with DR Sweeney hold CPM/ hold physio until evaluated by plastic surgery
[2016-10-09] MEDS: Pantoprazole 40 mg EC Tab PO SCH (12:33)
--- NOTE | 2016-10-09 13:09 | CP.PCM.CON ---
History of Present Illness - History of Present Illness History of Present Illness: Asked to evaluate this 61 year old female who recently had a pulmonary embolism and has been placed on rivaroxaban. Was discharged from this institution on 09/24 and sent to rehab. Apparently after one week her anticoagulant was changed from 15MG twice daily to 15MG once daily. She relates having had no problems on her medications and was admitted now with an apparent episode of cellulitis in the operative extremity. She was admitted on 09/21/16 with acute PE and multiple clots seen in the right lung inclusive of centrally in the right main pulmonary artery. Venous duplex scanning of the lower extremities did not reveal presence of DVT at that time. She had never been diagnosed with any abnormality of her blood clotting, nor was there any family history of abnormal clotting. She denies any prior history of pulmonary disease. She was a never smoker raised in a smoke free environment. Past Patient History - Infectious Disease Hx of Infectious Diseases: None - Tetanus Immunizations Tetanus Immunization: Unknown - Past Medical History & Family History Past Medical History?: Yes - Past Social History Smoking Status: Never Smoked Chewing Tobacco Use: No Cigar Use: No Alcohol: None Drugs: Denies Home Situation {Lives}: Other (rehab) - CARDIAC Hx Hypercholesterolemia: Yes Hx Hypertension: Yes - PULMONARY Hx Pulmonary Embolism: Yes - NEUROLOGICAL Hx Syncope: Yes Other/Comment: Cerebral aneurysm - HEENT Hx HEENT Problems: No - RENAL Hx Kidney Stones: Yes - ENDOCRINE/METABOLIC Hx Diabetes Mellitus Type 2: Yes - HEMATOLOGICAL/ONCOLOGICAL Hx Blood Disorders: No - INTEGUMENTARY Hx Dermatological Problems: No - MUSCULOSKELETAL/RHEUMATOLOGICAL Hx Arthritis: Yes - GASTROINTESTINAL Hx Gastroesophageal Reflux: Yes Other/Comment: Umbilical Hernia Repair - GENITOURINARY/GYNECOLOGICAL Hx Genitourinary Disorders: No - PSYCHIATRIC Hx Depression: No - SURGICAL HISTORY Hx Appendectomy: Yes Hx Orthopedic Surgery: Yes (TKR left) Hx Tonsillectomy: Yes - ANESTHESIA Hx Anesthesia: Yes Hx Anesthesia Reactions: No Hx Malignant Hyperthermia: No Meds Allergies/Adverse Reactions: Allergies Allergy/AdvReac Type Severity Reaction Status Date / Time codeine Allergy Severe HALLUCINATI Verified 09/21/16 16:41 ONS - Medications Medications: Current Medications Acetaminophen (Tylenol 325mg Tab) 650 mg PO Q6 PRN PRN Reason: Pain, Mild (1-3) Acetaminophen (Tylenol 325mg Tab) 650 mg PO Q6 PRN PRN Reason: Fever >100.4 F Atorvastatin Calcium (Lipitor) 40 mg PO DAILY [facility] Docusate Sodium (Colace) 100 mg PO BID [facility] Hydromorphone HCl (Dilaudid) 0.5 mg IVP Q3H PRN PRN Reason: Pain, moderate (4-7) Last Admin: 10/09/16 09:27 Dose: 0.5 mg Hydromorphone HCl (Dilaudid) 1 mg IVP Q3H PRN PRN Reason: Pain, severe (8-10) Piperacillin Sod/Tazobactam (Sod 3.375 gm/ Sodium Chloride) 100 mls @ 100 mls/ hr IVPB Q6 [facility] Last Admin: 10/09/16 09:54 Dose: 100 mls/hr Sodium Chloride (Sodium Chloride 0.9%) 1,000 mls @ 80 mls/hr IV .[id number] [facility] Stop: 10/10/16 08:37 Last Admin: 10/09/16 09:36 Dose: 80 mls/hr Vancomycin HCl 1 gm/ Sodium (Chloride) 250 mls @ 166.667 mls/hr IVPB Q12@0200, 1400 [facility] Insulin Human Lispro (Humalog) 0 units SC ACHS [facility] PRN Reason: Protocol Pantoprazole Sodium (Protonix Ec Tab) 40 mg PO DAILY [facility] Last Admin: 10/09/16 12:33 Dose: 40 mg Rivaroxaban (Xarelto) 15 mg PO BIDWM [facility] PRN Reason: Protocol Valsartan (Diovan) 160 mg PO DAILY [facility] Physical Exam - Additional Findings Additional findings: Well developed, well nourished, in no acute distressed. No palpable lymphadenopathy. Pharynx pink and moist w/o exudate. Neck is supple and trachea midline. No JVD. No dullness on chest percussion, equal expansion. Breath sounds are slightly diminished bilaterally. No rales or wheezes heard. No bronchial breath sounds. Heart sounds well heard, regular rhythm. Both LE's are warm and pink with normal capillary refill. + tenderness on compression proximal left calf. No Adriano's sign. Results - Vital Signs Recent Vital Signs: Last Vital Signs Temp 99.2 F 10/09/16 08:07 Pulse 99 H 10/09/16 08:07 Resp 20 10/09/16 08:07 BP 111/69 10/09/16 08:07 Pulse Ox 97 10/09/16 08:07 - Labs Result Diagrams: 10/09/16 04:00 10/08/16 22:57 Labs: Laboratory Results - last 24 hr 10/09/16 10/09/16 10/09/16 03:28 04:00 04:00 WBC 14.9 H RBC 3.62 L Hgb 9.9 L Hct 31.2 L MCV 86.2 MCH 27.4 MCHC 31.8 L RDW 14.2 Plt Count 205 MPV 8.2 Neut % (Auto) 82.9 H Lymph % (Auto) 8.9 L [place] % (Auto) 7.4 Eos % (Auto) 0.4 Baso % (Auto) 0.4 Neut # 12.3 H Lymph # 1.3 [place] # 1.1 H Eos # 0.1 Baso # 0.1 Neutrophils % (Manual) 81 H Band Neutrophils % 1 Lymphocytes % (Manual) 11 L Monocytes % (Manual) 6 Eosinophils % (Manual) 1 Platelet Estimate Normal Plt Clumps, EDTA Present Hypochromasia (manual) Slight PT INR APTT POC Glucose (mg/dL) 181 H Total Creatine Kinase 23 L Urine Color Urine Clarity Urine pH Ur Specific [place] Urine Protein Urine Glucose (UA) Urine Ketones Urine Blood Urine Nitrate Urine Bilirubin Urine Urobilinogen Ur Leukocyte Esterase Urine RBC (Auto) Urine Microscopic WBC Ur Squamous Epith Cells Urine Bacteria Urine Yeast (Budding) 10/09/16 10/09/16 10/09/16 04:15 05:49 10:16 WBC RBC Hgb Hct MCV MCH MCHC RDW Plt Count MPV Neut % (Auto) Lymph % (Auto) [place] % (Auto) Eos % (Auto) Baso % (Auto) Neut # Lymph # [place] # Eos # Baso # Neutrophils % (Manual) Band Neutrophils % Lymphocytes % (Manual) Monocytes % (Manual) Eosinophils % (Manual) Platelet Estimate Plt Clumps, EDTA Hypochromasia (manual) PT 10.6 INR 1.02 APTT 26.0 POC Glucose (mg/dL) 206 H Total Creatine Kinase Urine Color Yellow Urine Clarity Slighty-cloudy Urine pH 6.0 Ur Specific [place] 1.043 H Urine Protein Negative Urine Glucose (UA) >=500 Urine Ketones Negative Urine Blood Small Urine Nitrate Negative Urine Bilirubin Negative Urine Urobilinogen 0.2-1.0 Ur Leukocyte Esterase Trace Urine RBC (Auto) 95 H Urine Microscopic WBC 3 Ur Squamous Epith Cells 3 Urine Bacteria Rare Urine Yeast (Budding) Few H 10/09/16 11:03 WBC RBC Hgb Hct MCV MCH MCHC RDW Plt Count MPV Neut % (Auto) Lymph % (Auto) [place] % (Auto) Eos % (Auto) Baso % (Auto) Neut # Lymph # [place] # Eos # Baso # Neutrophils % (Manual) Band Neutrophils % Lymphocytes % (Manual) Monocytes % (Manual) Eosinophils % (Manual) Platelet Estimate Plt Clumps, EDTA Hypochromasia (manual) PT INR APTT POC Glucose (mg/dL) 176 H Total Creatine Kinase Urine Color Urine Clarity Urine pH Ur Specific [place] Urine Protein Urine Glucose (UA) Urine Ketones Urine Blood Urine Nitrate Urine Bilirubin Urine Urobilinogen Ur Leukocyte Esterase Urine RBC (Auto) Urine Microscopic WBC Ur Squamous Epith Cells Urine Bacteria Urine Yeast (Budding) Assessment & Plan (1) Cellulitis Status: Acute Priority: High (2) Pulmonary embolism Status: Acute Priority: High Comment: Recent. Diagnosed on 09/21/16. (3) Status post revision of total knee replacement Status: Acute Priority: High (4) Microscopic hematuria Status: Acute Priority: Medium - Assessment and Plan (Free Text) Plan: Will resume rivaroxaban 15MG PO BID. Complete three weeks since initial dose and then switch to 20MG POOD. Monitor CBC and UA. - Date & Time Date: 10/09/16 Time: 13:37
--- NOTE | 2016-10-09 14:01 | RAD ---
Right knee History: Status post surgery. Comparison: 08/28/2016. Findings: Two views of the postsurgical right knee obtained. The orthopedic hardware appears in alignment. No evidence of loosening. Interval removal of surgical maria and the drain. Impression: Postsurgical right knee.
[2016-10-09] MEDS ORDERED: Meropenem 1 GM in Sodium Chloride 0.9% 100 ML IVPB ONE (17:15)
--- NOTE | 2016-10-09 20:00 | CON ---
DATE: 10/09/2016 ALLERGIES: CODEINE. HISTORY OF PRESENT ILLNESS: The patient is a 61-year-old female who underwent a complex revision TKR 3 weeks prior to admission. The patient states that she initially went to subacute rehab and apparently there has been a wound issue according to her since that time as the knee superficially ,had the skin over the area was erythematous and darkened along with a cellulitis. The patient stated that she has been walking somewhat after the subacute rehab until late this week when she developed pain, fever and chills (I think it was probably on Sunday of this week) and she ultimately came to the Emergency Room for evaluation from where she was admitted. In addition, she had had a possibility of a pulmonary embolus and was admitted to [facility] also for that in the time of discharge from the knee surgery until yesterday's admission. She was admitted on 09/21/2016 for the acute pulmonary embolus with multiple clots seen in the right lung. The patient never smoked and a medical history includes hypercholesterolemia and diabetes mellitus. Stated she also had some issue of a cerebral aneurysm; will have to review that. Also had an umbilical hernia repair. Once again, the patient stated that today she also has fever and chills and severe pain. When unwrapping the right lower extremity, she had severe pain even though I barely lifted the leg over more than an inch. She has significant pain distally to the right knee and the right knee has a darkened area above the knee, almost blackened, and open areas surrounding that. There is no drainage and no foul odor. Once again though, the patient appears to have a significant amount of pain. IMAGING: Chest x-ray shows a right paratracheal opacity, remains stable. No other focal airspace opacities. No pleural effusion. The impression was stable right paratracheal opacity. The patient was also evaluated by Dr. Sweeney for pulmonary issues. LABORATORY DATA: Her blood sugars have been 180, 206, 176 and 185. A total creatine kinase is 23. Her lactic acid on 10/08/2016 was 2. White count today is 14.9, hemoglobin is 9.9, polys are 82.9%, lymphs are 8.9 which are low, platelets are estimated as normal Urine shows rare bacteria. There are 95 WBCs in the urine. Urine culture has been ordered. The patient was also taking Xarelto; is presently being put on Lovenox. PHYSICAL EXAMINATION: HEENT: Within normal limits. NECK: Supple. CHEST: Clear. LUNGS: Lungs are clear, but there may be some decreased breath sounds on the right side. There is no wheezing. HEART: Sounds are regular sinus rhythm. ABDOMEN: Soft and positive bowel sounds. EXTREMITIES: Left is within normal limits. Right lower extremity is as described previously on the description of the illness. So at present, I am leaving patient on vancomycin 1 gram IV piggyback q. 12, add Flagyl 500 mg IV piggyback q. 8, and am putting her on meropenem 1 gram IV piggyback q. 8.and will discontinue zosyn The patient will continue to be evaluated by Dr. Berry and Dr. Sweeney, and will see the patient tomorrow and review the followup labs. Raj Gordon MD cc: [phone] TT: 10/09/2016 19:59:38 Confirmation # [id number] Dictation # [id number] graham JARRELL
[2016-10-09] MEDS: Enoxaparin 80 mg Syringe SC SCH (21:29)
[2016-10-10] MEDS: metroNIDAZOLE 500mg/100ml NS 100 ML IVPB SCH ×3 (00:06→17:11)
[2016-10-10] MEDS: Meropenem 1 GM in Sodium Chloride 0.9% 100 ML IVPB SCH ×3 (05:32→20:24)
[2016-10-10] MEDS: Insulin Lispro (humaLOG) 100 Units/ml Inj SC SCH ×4 (06:42→22:05)
[2016-10-10 06:58] LABS: ALB/GLOB RATIO 1.1 (1.0-2.1); ALKALINE PHOSPHATASE 70 U/L (38-126); ALT/SGPT 27 U/L (9-52); AST/SGOT 18 U/L (14-36); BILIRUBIN,TOTAL 0.9 mg/dl (0.2-1.3); BLOOD UREA NITROGEN 12 mg/dl (7-17); CALCIUM 9.1 mg/dL (8.4-10.2); CARBON DIOXIDE 21 mmol/L (22-30); CHLORIDE 105 mmol/L (98-107); GFR AFRICAN-AMERICAN > 60; GLUCOSE,RANDOM 144 mg/dL (65-105); POTASSIUM 3.7 MMOL/L (3.6-5.0); SODIUM 137 mmol/l (132-148)
--- NOTE | 2016-10-10 08:09 | CP.PCM.PN ---
Subjective - Date & Time of Evaluation Date of Evaluation: 10/10/16 Time of Evaluation: 19:50 - Subjective Subjective: S- pt complains in foreleg and calf;on careful questioning NO discomfort in knee Objective - Vital Signs/Intake and Output Vital Signs (last 24 hours): Temp Pulse Resp BP Pulse Ox 99 F 101 H 18 105/62 96 10/10/16 02:45 10/10/16 00:21 10/10/16 00:21 10/10/16 00:21 10/10/16 00:21 Intake and Output: 10/10/16 10/10/16 06:59 18:59 Intake Total 580 Balance 580 - Medications Medications: Current Medications Acetaminophen (Tylenol 325mg Tab) 650 mg PO Q6 PRN PRN Reason: Pain, Mild (1-3) Acetaminophen (Tylenol 325mg Tab) 650 mg PO Q6 PRN PRN Reason: Fever >100.4 F Last Admin: 10/10/16 00:04 Dose: 650 mg Acetaminophen (Tylenol 325mg Tab) 650 mg PO Q4 PRN PRN Reason: Fever >100.4 F Atorvastatin Calcium (Lipitor) 40 mg PO DAILY [facility] Last Admin: 10/09/16 15:32 Dose: 40 mg Docusate Sodium (Colace) 100 mg PO BID [facility] Last Admin: 10/09/16 16:32 Dose: 100 mg Enoxaparin Sodium (Lovenox) 80 mg SC Q12 [facility] PRN Reason: Protocol Last Admin: 10/09/16 21:29 Dose: Not Given Hydromorphone HCl (Dilaudid) 0.5 mg IVP Q3H PRN PRN Reason: Pain, moderate (4-7) Last Admin: 10/09/16 21:18 Dose: 0.5 mg Hydromorphone HCl (Dilaudid) 1 mg IVP Q3H PRN PRN Reason: Pain, severe (8-10) Last Admin: 10/10/16 05:40 Dose: 1 mg Sodium Chloride (Sodium Chloride 0.9%) 1,000 mls @ 80 mls/hr IV .[id number] [facility] Stop: 10/10/16 08:37 Last Admin: 10/09/16 21:30 Dose: Not Given Vancomycin HCl 1 gm/ Sodium (Chloride) 250 mls @ 166.667 mls/hr IVPB Q12@0200, 1400 [facility] Last Admin: 10/10/16 01:08 Dose: 166.667 mls/hr Meropenem 1 gm/ Sodium (Chloride) 100 mls @ 100 mls/hr IVPB Q8H [facility] Last Admin: 10/10/16 05:32 Dose: 100 mls/hr Metronidazole (Flagyl 500mg/100ml Ns) 100 mls @ 100 mls/hr IVPB Q8 [facility] Last Admin: 10/10/16 00:06 Dose: 100 mls/hr Insulin Human Lispro (Humalog) 0 units SC ACHS [facility] PRN Reason: Protocol Last Admin: 10/10/16 06:42 Dose: Not Given Pantoprazole Sodium (Protonix Ec Tab) 40 mg PO DAILY [facility] Last Admin: 10/09/16 12:33 Dose: 40 mg Rivaroxaban (Xarelto) 15 mg PO BIDWM [facility] PRN Reason: Protocol Last Admin: 10/09/16 16:25 Dose: 15 mg Valsartan (Diovan) 160 mg PO DAILY [facility] Last Admin: 10/09/16 15:32 Dose: 160 mg - Labs Labs: 10/09/16 04:00 10/10/16 06:15 PT 10.6 SECONDS (9.6-11.2) 10/09/16 04:15 INR 1.02 (0.92-1.08) 10/09/16 04:15 APTT 26.0 SECONDS (23.3-32.5) 10/09/16 04:15 - Additional Findings Additional findings: Objective systemic constitutional- pt awake and oriented x3/had experienced audit hallucinations in subacute facility He- wnl chest and lungs - decreased breath sounds throughout abd- benign Cardiac-s1/s2 nsr no murmurs thrills MUsculoskekltal stance/gait- defrred R knee eschar dry/not draing- awiaitng eval by Dr walker no increased pain on passive flexion/dorsiflexion Xrays- reveal excellent position of construct Assessment and Plan - Assessment and Plan (Free Text) Assessment: A- cellulitis, without deep sepsis to knee implant + cellulits + calf tenderness today ( doppler on admit neg) case discussed with Dr perez Plan: P- awaiitng eval by Dr walker will resum,e physio when clear by Dr denise davila saw pt case discussed at length with Dr davila
[2016-10-10 08:24] LABS: HEMATOCRIT 33.2 % (34.0-47.0); MEAN CELL VOLUME 86.2 fl (81.0-99.0); MEAN CORPUSCULAR HEMOGLOBIN 28.1 pg (27.0-31.0); MEAN CORPUSCULAR HGB CONC 32.7 g/dL (33.0-37.0); RED CELL DISTRIBUTION WIDTH 14.6 % (11.5-14.5); WHITE BLOOD COUNT 11.9 K/uL (4.8-10.8)
[2016-10-10] MEDS: Enoxaparin 80 mg Syringe SC SCH ×2 (09:06→20:21)
[2016-10-10] MEDS: Pantoprazole 40 mg EC Tab PO SCH (09:06)
--- NOTE | 2016-10-10 11:32 | CP.PCM.PN ---
Subjective - Date & Time of Evaluation Date of Evaluation: 10/10/16 Time of Evaluation: 11:30 - Subjective Subjective: Febrile overnight. WBC down to 11.9, ESR 88 (post-op 08/29, PE 2 weeks ago, cellulitis). Awaiting Plastics for decision regarding any need for surgical intervention. Will leave on enoxaparin until decision regarding any surgery is finalized, then switch back to rivaroxaban. Objective - Vital Signs/Intake and Output Vital Signs (last 24 hours): Temp Pulse Resp BP Pulse Ox 97.7 F 88 20 106/64 98 10/10/16 08:28 10/10/16 08:28 10/10/16 08:28 10/10/16 08:28 10/10/16 08:28 Intake and Output: 10/09/16 10/10/16 23:59 11:59 Intake Total 580 Balance 580 - Medications Medications: Current Medications Acetaminophen (Tylenol 325mg Tab) 650 mg PO Q6 PRN PRN Reason: Pain, Mild (1-3) Acetaminophen (Tylenol 325mg Tab) 650 mg PO Q6 PRN PRN Reason: Fever >100.4 F Last Admin: 10/10/16 00:04 Dose: 650 mg Acetaminophen (Tylenol 325mg Tab) 650 mg PO Q4 PRN PRN Reason: Fever >100.4 F Atorvastatin Calcium (Lipitor) 40 mg PO DAILY [facility] Last Admin: 10/10/16 09:06 Dose: 40 mg Docusate Sodium (Colace) 100 mg PO BID [facility] Last Admin: 10/10/16 09:05 Dose: Not Given Enoxaparin Sodium (Lovenox) 80 mg SC Q12 [facility] PRN Reason: Protocol Last Admin: 10/10/16 09:06 Dose: 80 mg Hydromorphone HCl (Dilaudid) 0.5 mg IVP Q3H PRN PRN Reason: Pain, moderate (4-7) Last Admin: 10/09/16 21:18 Dose: 0.5 mg Hydromorphone HCl (Dilaudid) 1 mg IVP Q3H PRN PRN Reason: Pain, severe (8-10) Last Admin: 10/10/16 05:40 Dose: 1 mg Vancomycin HCl 1 gm/ Sodium (Chloride) 250 mls @ 166.667 mls/hr IVPB Q12@0200, 1400 [facility] Last Admin: 10/10/16 01:08 Dose: 166.667 mls/hr Meropenem 1 gm/ Sodium (Chloride) 100 mls @ 100 mls/hr IVPB Q8H [facility] Last Admin: 10/10/16 05:32 Dose: 100 mls/hr Metronidazole (Flagyl 500mg/100ml Ns) 100 mls @ 100 mls/hr IVPB Q8 [facility] Last Admin: 10/10/16 09:05 Dose: 100 mls/hr Insulin Human Lispro (Humalog) 0 units SC ACHS [facility] PRN Reason: Protocol Last Admin: 10/10/16 06:42 Dose: Not Given Pantoprazole Sodium (Protonix Ec Tab) 40 mg PO DAILY [facility] Last Admin: 10/10/16 09:06 Dose: 40 mg Rivaroxaban (Xarelto) 15 mg PO BIDWM [facility] PRN Reason: Protocol Last Admin: 10/09/16 16:25 Dose: 15 mg Valsartan (Diovan) 160 mg PO DAILY [facility] Last Admin: 10/10/16 09:05 Dose: 160 mg - Labs Labs: 10/10/16 08:19 10/10/16 06:15 PT 10.6 SECONDS (9.6-11.2) 10/09/16 04:15 INR 1.02 (0.92-1.08) 10/09/16 04:15 APTT 26.0 SECONDS (23.3-32.5) 10/09/16 04:15 Assessment and Plan (1) Cellulitis Status: Acute (2) Pulmonary embolism Status: Acute (3) Status post revision of total knee replacement Status: Acute (4) Microscopic hematuria Status: Acute
--- NOTE | 2016-10-10 11:33 | CP.PCM.CON ---
History of Present Illness - History of Present Illness History of Present Illness: THE PATIENT IS A 61 YEAR OLD FEMALE WHO WAS ADMITTED WITH RIGHT KNEE AREA CELLULITIS. SHE HAS A HISTORY OF RIGHT REMOTE RIGHT KNEE SURGERIES IN THE PAST INCLUDING A RT TKR IN 2013. THE DEVICE FAILED AND SHE HAD A REPEAT RT KNEE REPLACEMENT SIX WEEKS AGO. SHE WENT TO REHAB AND SHE DEVELOPED A PULMONARY EMBOLUS POST-OP AND WAS ADMITTED FOR THIS AND TREATED. SHE NOW HAS SEVERE PAIN AND REDNESS IN THE ANTERIOR RIGHT KNEE AREA AND WENT TO THE ER AND WAS FOUND TO HAVE CELLULITIS AND ADMITTED FOR ANTIBIOTIC TREATMENT. SHE ALSO HAS A HISTORY OF HYPERTENSION, HYPERLIPIDEMIA AND DIABETES MELLITUS AND CARDIOLOGY WAS ASKED TO SEE AND FOLLOW HER. SHE DENIES CHEST PAIN OR A CAD HISTORY. Past Patient History - Infectious Disease Hx of Infectious Diseases: None - Tetanus Immunizations Tetanus Immunization: Unknown - Past Medical History & Family History Past Medical History?: Yes - Past Social History Smoking Status: Never Smoked Chewing Tobacco Use: No Cigar Use: No Alcohol: None Drugs: Denies Home Situation {Lives}: Other (rehab) - CARDIAC Hx Hypercholesterolemia: Yes Hx Hypertension: Yes - PULMONARY Hx Pulmonary Embolism: Yes - NEUROLOGICAL Hx Syncope: Yes Other/Comment: Cerebral aneurysm - HEENT Hx HEENT Problems: No - RENAL Hx Kidney Stones: Yes - ENDOCRINE/METABOLIC Hx Diabetes Mellitus Type 2: Yes - HEMATOLOGICAL/ONCOLOGICAL Hx Blood Disorders: No - INTEGUMENTARY Hx Dermatological Problems: No - MUSCULOSKELETAL/RHEUMATOLOGICAL Hx Arthritis: Yes - GASTROINTESTINAL Hx Gastroesophageal Reflux: Yes Other/Comment: Umbilical Hernia Repair - GENITOURINARY/GYNECOLOGICAL Hx Genitourinary Disorders: No - PSYCHIATRIC Hx Depression: No - SURGICAL HISTORY Hx Appendectomy: Yes Hx Orthopedic Surgery: Yes (TKR left) Hx Tonsillectomy: Yes - ANESTHESIA Hx Anesthesia: Yes Hx Anesthesia Reactions: No Hx Malignant Hyperthermia: No Meds Allergies/Adverse Reactions: Allergies Allergy/AdvReac Type Severity Reaction Status Date / Time codeine Allergy Severe HALLUCINATI Verified 09/21/16 16:41 ONS - Medications Medications: Current Medications Acetaminophen (Tylenol 325mg Tab) 650 mg PO Q6 PRN PRN Reason: Pain, Mild (1-3) Acetaminophen (Tylenol 325mg Tab) 650 mg PO Q6 PRN PRN Reason: Fever >100.4 F Last Admin: 10/10/16 00:04 Dose: 650 mg Acetaminophen (Tylenol 325mg Tab) 650 mg PO Q4 PRN PRN Reason: Fever >100.4 F Atorvastatin Calcium (Lipitor) 40 mg PO DAILY [facility] Last Admin: 10/10/16 09:06 Dose: 40 mg Docusate Sodium (Colace) 100 mg PO BID [facility] Last Admin: 10/10/16 09:05 Dose: Not Given Enoxaparin Sodium (Lovenox) 80 mg SC Q12 [facility] PRN Reason: Protocol Last Admin: 10/10/16 09:06 Dose: 80 mg Hydromorphone HCl (Dilaudid) 0.5 mg IVP Q3H PRN PRN Reason: Pain, moderate (4-7) Last Admin: 10/09/16 21:18 Dose: 0.5 mg Hydromorphone HCl (Dilaudid) 1 mg IVP Q3H PRN PRN Reason: Pain, severe (8-10) Last Admin: 10/10/16 05:40 Dose: 1 mg Vancomycin HCl 1 gm/ Sodium (Chloride) 250 mls @ 166.667 mls/hr IVPB Q12@0200, 1400 [facility] Last Admin: 10/10/16 01:08 Dose: 166.667 mls/hr Meropenem 1 gm/ Sodium (Chloride) 100 mls @ 100 mls/hr IVPB Q8H [facility] Last Admin: 10/10/16 05:32 Dose: 100 mls/hr Metronidazole (Flagyl 500mg/100ml Ns) 100 mls @ 100 mls/hr IVPB Q8 [facility] Last Admin: 10/10/16 09:05 Dose: 100 mls/hr Insulin Human Lispro (Humalog) 0 units SC ACHS [facility] PRN Reason: Protocol Last Admin: 10/10/16 06:42 Dose: Not Given Pantoprazole Sodium (Protonix Ec Tab) 40 mg PO DAILY [facility] Last Admin: 10/10/16 09:06 Dose: 40 mg Rivaroxaban (Xarelto) 15 mg PO BIDWM [facility] PRN Reason: Protocol Last Admin: 10/09/16 16:25 Dose: 15 mg Valsartan (Diovan) 160 mg PO DAILY [facility] Last Admin: 10/10/16 09:05 Dose: 160 mg Physical Exam - Respiratory Exam Respiratory Exam: Clear to Auscultation Bilateral - Cardiovascular Exam Cardiovascular Exam: REGULAR RHYTHM, +S1, +S2 - Extremities Exam Additional comments: RIGHT AREA WITH DRESSING - Additional Findings Additional findings: EKG ST, R 102, IRBBB ORTHOPEDIC, ID AND PULMONARY NOTES REVIEWED Results - Vital Signs Recent Vital Signs: Last Vital Signs Temp 97.7 F 10/10/16 08:28 Pulse 88 10/10/16 08:28 Resp 20 10/10/16 08:28 BP 106/64 10/10/16 08:28 Pulse Ox 98 10/10/16 08:28 - Labs Result Diagrams: 10/10/16 08:19 10/10/16 06:15 Labs: Laboratory Results - last 24 hr 10/09/16 10/09/16 10/09/16 11:03 15:55 21:37 WBC RBC Hgb Hct MCV MCH MCHC RDW Plt Count ESR Sodium Potassium Chloride Carbon Dioxide Anion Gap BUN Creatinine Est GFR ( Amer) Est GFR (Non-Af Amer) POC Glucose (mg/dL) 176 H 185 H 173 H Random Glucose Lactic Acid Calcium Total Bilirubin AST ALT Alkaline Phosphatase Total Protein Albumin Globulin Albumin/Globulin Ratio 10/10/16 10/10/16 10/10/16 05:22 06:15 06:15 WBC RBC Hgb Hct MCV MCH MCHC RDW Plt Count ESR Sodium 137 Potassium 3.7 Chloride 105 Carbon Dioxide 21 L Anion Gap 15 BUN 12 Creatinine 0.8 Est GFR ( Amer) > 60 Est GFR (Non-Af Amer) > 60 POC Glucose (mg/dL) 148 H Random Glucose 144 H Lactic Acid 1.1 Calcium 9.1 Total Bilirubin 0.9 AST 18 ALT 27 Alkaline Phosphatase 70 Total Protein 7.0 Albumin 3.7 Globulin 3.3 Albumin/Globulin Ratio 1.1 10/10/16 10/10/16 08:19 10:56 WBC 11.9 H RBC 3.85 Hgb 10.8 L Hct 33.2 L MCV 86.2 MCH 28.1 MCHC 32.7 L RDW 14.6 H Plt Count 215 ESR 88 H Sodium Potassium Chloride Carbon Dioxide Anion Gap BUN Creatinine Est GFR ( Amer) Est GFR (Non-Af Amer) POC Glucose (mg/dL) 216 H Random Glucose Lactic Acid Calcium Total Bilirubin AST ALT Alkaline Phosphatase Total Protein Albumin Globulin Albumin/Globulin Ratio Assessment & Plan - Assessment and Plan (Free Text) Assessment: RIGHT KNEE CELLULITIS RECENT RT KNEE REPLACEMENT HYPERTENSION HYPERLIPIDEMIA DIABETES MELLIDTUS Plan: CONTINUE VALSARTAN, ATORVASTATIN, ANTICOAGULATION AND IV ANTIBIOTICS
--- NOTE | 2016-10-10 12:40 | CP.PCM.PN ---
Subjective - Date & Time of Evaluation Date of Evaluation: 10/10/16 Time of Evaluation: 12:30 - Subjective Subjective: Hospitalist Progress Note 61 year old female who was admitted on 10/09/16 for right knee pain/swelling/ warmth. She has a history of revision of Right Knee TKR roughly 3 weeks prior to admission by Orthopedics Dr. Guillen. She had developed some redness/ drainage from the right knee for which she finished course of Levaquin on . Then night before admission she could not bear weight on the Right Leg and redness and edema had worsened and therefore she was admitted for further evaluation. ROS: Pain in the posterior aspect of right knee that is "hard to put into words" extending down to the pedal surface of right foot Can not lift right leg from floor onto bed ever since revision surgery (this is contradicting her statements to the admitting doctor as well as to the ID physician) Has not moved bowels since Sunday (history of one bowel movement every 3 to 4 days with some blood due to hemorrhoids) Feels cold (using 3 blankets) NO other complaints upon FULL ROS Exam: HEENT: NCA, EOMI, PERRLA, NO pharyngeal erythema/exudate, NO cervical/ supraclavicular/submandibular lymphadenopathy, NO thyromegaly Cardio: NS1 and NS2, NO M/R/G Respiratory: CTA B/L, NO R/R/W GI: BSx4, Soft, NT, Central Obesity, NO HSM, NO guarding/rebound tenderness Ext: Right Knee Anterior aspect with black irregularly shaped eschar (roughly 4- 5 cm in diameter) without surrounding signs of cellulitis, tender to the touch, Pedal and Radial Pulses are strong and equal, Capillary Refill is 2 seconds Neuro: CN II through XII are grossly intact 1). Right Knee Pain S/P Revision Surgery with Fever Meropenem 1 gm IV Q8H Flagyl 500 mg IV Q8H Vancomycin 1 gm IV Q12H Fever with TMax at 101.4 in the past 24 hours Blood Culture 10/09/16 is negative to date Urine Culture results are pending ID Dr. Cecelia Sterling F/U Plastic Surgery Dr. Singletary further recommendations Pulmonology Dr. Sweeney Cardiology Dr. Weir Orthopedics Dr. Guillen 2). Hx PE Holding Xarelto for now for possible surgical procedure Lovenox 80 mg SC Q12H 3). Hx DM 2 Lispro ISS 4). Hx HTN Valsartan 160 mg PO 1x/megan 5). Hx HLD Lipitor 40 mg PO 1x/day 6). Prophylactic Measure Tylenol 650 mg PO Q4H PRN Fever Colace 100 mg PO 2x/day Lovenox 80 mg SC Q12H Dilaudid 0.5 mg IV Q3H PRN Moderate Pain Dilaudid 1 mg IV Q3H PRN Severe Pain Protonix 40 mg PO 1x/day Florastor 250 mg PO 2x/day Objective - Vital Signs/Intake and Output Vital Signs (last 24 hours): Temp Pulse Resp BP Pulse Ox 99.8 F H 90 21 106/64 95 10/10/16 12:13 10/10/16 12:13 10/10/16 12:13 10/10/16 08:28 10/10/16 12:13 Intake and Output: 10/10/16 10/10/16 06:59 18:59 Intake Total 580 Balance 580 - Medications Medications: Current Medications Acetaminophen (Tylenol 325mg Tab) 650 mg PO Q6 PRN PRN Reason: Pain, Mild (1-3) Acetaminophen (Tylenol 325mg Tab) 650 mg PO Q6 PRN PRN Reason: Fever >100.4 F Last Admin: 10/10/16 00:04 Dose: 650 mg Acetaminophen (Tylenol 325mg Tab) 650 mg PO Q4 PRN PRN Reason: Fever >100.4 F Atorvastatin Calcium (Lipitor) 40 mg PO DAILY [facility] Last Admin: 10/10/16 09:06 Dose: 40 mg Docusate Sodium (Colace) 100 mg PO BID [facility] Last Admin: 10/10/16 09:05 Dose: Not Given Enoxaparin Sodium (Lovenox) 80 mg SC Q12 [facility] PRN Reason: Protocol Last Admin: 10/10/16 09:06 Dose: 80 mg Hydromorphone HCl (Dilaudid) 0.5 mg IVP Q3H PRN PRN Reason: Pain, moderate (4-7) Last Admin: 10/09/16 21:18 Dose: 0.5 mg Hydromorphone HCl (Dilaudid) 1 mg IVP Q3H PRN PRN Reason: Pain, severe (8-10) Last Admin: 10/10/16 11:55 Dose: 1 mg Vancomycin HCl 1 gm/ Sodium (Chloride) 250 mls @ 166.667 mls/hr IVPB Q12@0200, 1400 [facility] Last Admin: 10/10/16 01:08 Dose: 166.667 mls/hr Meropenem 1 gm/ Sodium (Chloride) 100 mls @ 100 mls/hr IVPB Q8H [facility] Last Admin: 10/10/16 12:01 Dose: 100 mls/hr Metronidazole (Flagyl 500mg/100ml Ns) 100 mls @ 100 mls/hr IVPB Q8 [facility] Last Admin: 10/10/16 09:05 Dose: 100 mls/hr Insulin Human Lispro (Humalog) 0 units SC ACHS [facility] PRN Reason: Protocol Last Admin: 10/10/16 11:59 Dose: 2 unit Pantoprazole Sodium (Protonix Ec Tab) 40 mg PO DAILY [facility] Last Admin: 10/10/16 09:06 Dose: 40 mg Rivaroxaban (Xarelto) 15 mg PO BIDWM [facility] PRN Reason: Protocol Last Admin: 10/09/16 16:25 Dose: 15 mg Valsartan (Diovan) 160 mg PO DAILY [facility] Last Admin: 10/10/16 09:05 Dose: 160 mg - Labs Labs: 10/10/16 08:19 10/10/16 06:15 PT 10.6 SECONDS (9.6-11.2) 10/09/16 04:15 INR 1.02 (0.92-1.08) 10/09/16 04:15 APTT 26.0 SECONDS (23.3-32.5) 10/09/16 04:15
--- NOTE | 2016-10-10 13:14 | CP.PCM.CON ---
History of Present Illness - History of Present Illness History of Present Illness: Psychiatry consult called for evaluation of hallucinations CC: "I'm depressed." HPI: This is a 61 y/o female with MHx significant for HTN, DM2, brain aneursym, and PE (recently started on Xarelto) who came in with L knee pain and swelling/ warmth, currently being treated for cellulitis. Patient reports that she has been feeling depressed for the past few weeks due to her chronic medical issues and pain. She reports that she has had visual hallucinations after taking morphine, but currently denies current hallucinations. She discussed her emotional stress due to her chronic medical problems. She denies current ideation to harm herself. NO passive or active suicidal ideation. No delusions /albino/paranoia. PPHx: No past psychiatric history of treatment, medications or admission. No h/ o suicide attempts. MHx: HTN, DM2, PE, Brain aneurysm SHx: Appendix, hysterectomy, multiple times L knee, tonsils Allergies: Codeine, morphine Medications: As per med list Family Hx: Daughter w/ bipolar disorder Social Hx: Lives with family, no tobacco, no EtOH, no illicit drugs. . On SSI. Used to work at the [employer]. Surrogate: Son, Dima Whipple MSE: A + O x 3, good eye contact, speech normal, thought process- linear/ coherent, though content- no delusions/paranoia, psychmotor retarded 2/2 pain, mood "depressed", affect- constricted, no hallucinations, fair insight/judgment , NO SI/HI. Impression: 61 y/o female with MHx significant for HTN, DM2, brain aneursym, and PE (recently started on Xarelto) who came in with L knee pain and swelling/ warmth, currently being treated for cellulitis. Patient has experienced hallucinations as a likely adverse effect of morphine, but does not currently have any hallucinations or any past psychiatric history. 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 Recommendations: -Would not recommend treatment with any antipsychotics as the intermittent psychotic symptoms seem to be due to medications vs acute medical issues -Would not treat with antidepressants at this time to avoid the risk of adverse effects or drug-drug interactions, such as increased risk of bleeding -No acute psychiatric admission indicated at this time -Patient would benefit from supportive psychotherapy as an outpatient Past Patient History - Infectious Disease Hx of Infectious Diseases: None - Tetanus Immunizations Tetanus Immunization: Unknown - Past Medical History & Family History Past Medical History?: Yes - Past Social History Smoking Status: Never Smoked Chewing Tobacco Use: No Cigar Use: No Alcohol: None Drugs: Denies Home Situation {Lives}: Other (rehab) - CARDIAC Hx Hypercholesterolemia: Yes Hx Hypertension: Yes - PULMONARY Hx Pulmonary Embolism: Yes - NEUROLOGICAL Hx Syncope: Yes Other/Comment: Cerebral aneurysm - HEENT Hx HEENT Problems: No - RENAL Hx Kidney Stones: Yes - ENDOCRINE/METABOLIC Hx Diabetes Mellitus Type 2: Yes - HEMATOLOGICAL/ONCOLOGICAL Hx Blood Disorders: No - INTEGUMENTARY Hx Dermatological Problems: No - MUSCULOSKELETAL/RHEUMATOLOGICAL Hx Arthritis: Yes - GASTROINTESTINAL Hx Gastroesophageal Reflux: Yes Other/Comment: Umbilical Hernia Repair - GENITOURINARY/GYNECOLOGICAL Hx Genitourinary Disorders: No - PSYCHIATRIC Hx Depression: No - SURGICAL HISTORY Hx Appendectomy: Yes Hx Orthopedic Surgery: Yes (TKR left) Hx Tonsillectomy: Yes - ANESTHESIA Hx Anesthesia: Yes Hx Anesthesia Reactions: No Hx Malignant Hyperthermia: No Meds Allergies/Adverse Reactions: Allergies Allergy/AdvReac Type Severity Reaction Status Date / Time codeine Allergy Severe HALLUCINATI Verified 09/21/16 16:41 ONS - Medications Medications: Current Medications Acetaminophen (Tylenol 325mg Tab) 650 mg PO Q6 PRN PRN Reason: Pain, Mild (1-3) Acetaminophen (Tylenol 325mg Tab) 650 mg PO Q6 PRN PRN Reason: Fever >100.4 F Last Admin: 10/10/16 00:04 Dose: 650 mg Acetaminophen (Tylenol 325mg Tab) 650 mg PO Q4 PRN PRN Reason: Fever >100.4 F Atorvastatin Calcium (Lipitor) 40 mg PO DAILY [facility] Last Admin: 10/10/16 09:06 Dose: 40 mg Docusate Sodium (Colace) 100 mg PO BID [facility] Last Admin: 10/10/16 09:05 Dose: Not Given Enoxaparin Sodium (Lovenox) 80 mg SC Q12 [facility] PRN Reason: Protocol Last Admin: 10/10/16 09:06 Dose: 80 mg Hydromorphone HCl (Dilaudid) 0.5 mg IVP Q3H PRN PRN Reason: Pain, moderate (4-7) Last Admin: 10/09/16 21:18 Dose: 0.5 mg Hydromorphone HCl (Dilaudid) 1 mg IVP Q3H PRN PRN Reason: Pain, severe (8-10) Last Admin: 10/10/16 11:55 Dose: 1 mg Vancomycin HCl 1 gm/ Sodium (Chloride) 250 mls @ 166.667 mls/hr IVPB Q12@0200, 1400 [facility] Last Admin: 10/10/16 01:08 Dose: 166.667 mls/hr Meropenem 1 gm/ Sodium (Chloride) 100 mls @ 100 mls/hr IVPB Q8H [facility] Last Admin: 10/10/16 12:01 Dose: 100 mls/hr Metronidazole (Flagyl 500mg/100ml Ns) 100 mls @ 100 mls/hr IVPB Q8 [facility] Last Admin: 10/10/16 09:05 Dose: 100 mls/hr Insulin Human Lispro (Humalog) 0 units SC ACHS [facility] PRN Reason: Protocol Last Admin: 10/10/16 11:59 Dose: 2 unit Pantoprazole Sodium (Protonix Ec Tab) 40 mg PO DAILY [facility] Last Admin: 10/10/16 09:06 Dose: 40 mg Rivaroxaban (Xarelto) 15 mg PO BIDWM [facility] PRN Reason: Protocol Last Admin: 10/09/16 16:25 Dose: 15 mg Saccharomyces Boulardii (Florastor) 250 mg PO BID [facility] Valsartan (Diovan) 160 mg PO DAILY [facility] Last Admin: 10/10/16 09:05 Dose: 160 mg Results - Vital Signs Recent Vital Signs: Last Vital Signs Temp 99.8 F H 10/10/16 12:13 Pulse 90 10/10/16 12:13 Resp 21 10/10/16 12:13 BP 106/64 10/10/16 08:28 Pulse Ox 95 10/10/16 12:13 - Labs Result Diagrams: 10/10/16 08:19 10/10/16 06:15 Labs: Laboratory Results - last 24 hr 10/09/16 10/09/16 10/09/16 15:55 20:25 21:37 WBC RBC Hgb Hct MCV MCH MCHC RDW Plt Count ESR Sodium Potassium Chloride Carbon Dioxide Anion Gap BUN Creatinine Est GFR ( Amer) Est GFR (Non-Af Amer) POC Glucose (mg/dL) 185 H 173 H Random Glucose Lactic Acid Calcium Total Bilirubin AST ALT Alkaline Phosphatase Total Protein Albumin Globulin Albumin/Globulin Ratio Procalcitonin 0.17 L 10/10/16 10/10/16 10/10/16 05:22 06:15 06:15 WBC RBC Hgb Hct MCV MCH MCHC RDW Plt Count ESR Sodium 137 Potassium 3.7 Chloride 105 Carbon Dioxide 21 L Anion Gap 15 BUN 12 Creatinine 0.8 Est GFR ( Amer) > 60 Est GFR (Non-Af Amer) > 60 POC Glucose (mg/dL) 148 H Random Glucose 144 H Lactic Acid 1.1 Calcium 9.1 Total Bilirubin 0.9 AST 18 ALT 27 Alkaline Phosphatase 70 Total Protein 7.0 Albumin 3.7 Globulin 3.3 Albumin/Globulin Ratio 1.1 Procalcitonin 10/10/16 10/10/16 08:19 10:56 WBC 11.9 H RBC 3.85 Hgb 10.8 L Hct 33.2 L MCV 86.2 MCH 28.1 MCHC 32.7 L RDW 14.6 H Plt Count 215 ESR 88 H Sodium Potassium Chloride Carbon Dioxide Anion Gap BUN Creatinine Est GFR ( Amer) Est GFR (Non-Af Amer) POC Glucose (mg/dL) 216 H Random Glucose Lactic Acid Calcium Total Bilirubin AST ALT Alkaline Phosphatase Total Protein Albumin Globulin Albumin/Globulin Ratio Procalcitonin
--- NOTE | 2016-10-10 15:38 | CP.PCM.CON ---
Past Patient History - Infectious Disease Hx of Infectious Diseases: None - Tetanus Immunizations Tetanus Immunization: Unknown - Past Medical History & Family History Past Medical History?: Yes - Past Social History Smoking Status: Never Smoked Chewing Tobacco Use: No Cigar Use: No Alcohol: None Drugs: Denies Home Situation {Lives}: Other (rehab) - CARDIAC Hx Hypercholesterolemia: Yes Hx Hypertension: Yes - PULMONARY Hx Pulmonary Embolism: Yes - NEUROLOGICAL Hx Syncope: Yes Other/Comment: Cerebral aneurysm - HEENT Hx HEENT Problems: No - RENAL Hx Kidney Stones: Yes - ENDOCRINE/METABOLIC Hx Diabetes Mellitus Type 2: Yes - HEMATOLOGICAL/ONCOLOGICAL Hx Blood Disorders: No - INTEGUMENTARY Hx Dermatological Problems: No - MUSCULOSKELETAL/RHEUMATOLOGICAL Hx Arthritis: Yes - GASTROINTESTINAL Hx Gastroesophageal Reflux: Yes Other/Comment: Umbilical Hernia Repair - GENITOURINARY/GYNECOLOGICAL Hx Genitourinary Disorders: No - PSYCHIATRIC Hx Depression: No - SURGICAL HISTORY Hx Appendectomy: Yes Hx Orthopedic Surgery: Yes (TKR left) Hx Tonsillectomy: Yes - ANESTHESIA Hx Anesthesia: Yes Hx Anesthesia Reactions: No Hx Malignant Hyperthermia: No Meds Allergies/Adverse Reactions: Allergies Allergy/AdvReac Type Severity Reaction Status Date / Time codeine Allergy Severe HALLUCINATI Verified 09/21/16 16:41 ONS - Medications Medications: Current Medications Acetaminophen (Tylenol 325mg Tab) 650 mg PO Q6 PRN PRN Reason: Pain, Mild (1-3) Acetaminophen (Tylenol 325mg Tab) 650 mg PO Q6 PRN PRN Reason: Fever >100.4 F Last Admin: 10/10/16 00:04 Dose: 650 mg Acetaminophen (Tylenol 325mg Tab) 650 mg PO Q4 PRN PRN Reason: Fever >100.4 F Atorvastatin Calcium (Lipitor) 40 mg PO DAILY [facility] Last Admin: 10/10/16 09:06 Dose: 40 mg Docusate Sodium (Colace) 100 mg PO BID [facility] Last Admin: 10/10/16 09:05 Dose: Not Given Enoxaparin Sodium (Lovenox) 80 mg SC Q12 [facility] PRN Reason: Protocol Last Admin: 10/10/16 09:06 Dose: 80 mg Hydromorphone HCl (Dilaudid) 0.5 mg IVP Q3H PRN PRN Reason: Pain, moderate (4-7) Last Admin: 10/09/16 21:18 Dose: 0.5 mg Hydromorphone HCl (Dilaudid) 1 mg IVP Q3H PRN PRN Reason: Pain, severe (8-10) Last Admin: 10/10/16 15:23 Dose: 1 mg Vancomycin HCl 1 gm/ Sodium (Chloride) 250 mls @ 166.667 mls/hr IVPB Q12@0200, 1400 [facility] Last Admin: 10/10/16 13:58 Dose: 166.667 mls/hr Meropenem 1 gm/ Sodium (Chloride) 100 mls @ 100 mls/hr IVPB Q8H [facility] Last Admin: 10/10/16 12:01 Dose: 100 mls/hr Metronidazole (Flagyl 500mg/100ml Ns) 100 mls @ 100 mls/hr IVPB Q8 [facility] Last Admin: 10/10/16 09:05 Dose: 100 mls/hr Insulin Human Lispro (Humalog) 0 units SC ACHS [facility] PRN Reason: Protocol Last Admin: 10/10/16 11:59 Dose: 2 unit Pantoprazole Sodium (Protonix Ec Tab) 40 mg PO DAILY [facility] Last Admin: 10/10/16 09:06 Dose: 40 mg Rivaroxaban (Xarelto) 15 mg PO BIDWM [facility] PRN Reason: Protocol Last Admin: 10/09/16 16:25 Dose: 15 mg Saccharomyces Boulardii (Florastor) 250 mg PO BID [facility] Valsartan (Diovan) 160 mg PO DAILY [facility] Last Admin: 10/10/16 09:05 Dose: 160 mg Results - Vital Signs Recent Vital Signs: Last Vital Signs Temp 99.8 F H 10/10/16 12:13 Pulse 90 10/10/16 12:13 Resp 21 10/10/16 12:13 BP 106/64 10/10/16 08:28 Pulse Ox 95 10/10/16 12:13 - Labs Result Diagrams: 10/10/16 08:19 10/10/16 06:15 Labs: Laboratory Results - last 24 hr 10/09/16 10/09/16 10/09/16 15:55 20:25 21:37 WBC RBC Hgb Hct MCV MCH MCHC RDW Plt Count ESR Sodium Potassium Chloride Carbon Dioxide Anion Gap BUN Creatinine Est GFR ( Amer) Est GFR (Non-Af Amer) POC Glucose (mg/dL) 185 H 173 H Random Glucose Lactic Acid Calcium Total Bilirubin AST ALT Alkaline Phosphatase Total Protein Albumin Globulin Albumin/Globulin Ratio Procalcitonin 0.17 L 10/10/16 10/10/16 10/10/16 05:22 06:15 06:15 WBC RBC Hgb Hct MCV MCH MCHC RDW Plt Count ESR Sodium 137 Potassium 3.7 Chloride 105 Carbon Dioxide 21 L Anion Gap 15 BUN 12 Creatinine 0.8 Est GFR ( Amer) > 60 Est GFR (Non-Af Amer) > 60 POC Glucose (mg/dL) 148 H Random Glucose 144 H Lactic Acid 1.1 Calcium 9.1 Total Bilirubin 0.9 AST 18 ALT 27 Alkaline Phosphatase 70 Total Protein 7.0 Albumin 3.7 Globulin 3.3 Albumin/Globulin Ratio 1.1 Procalcitonin 10/10/16 10/10/16 08:19 10:56 WBC 11.9 H RBC 3.85 Hgb 10.8 L Hct 33.2 L MCV 86.2 MCH 28.1 MCHC 32.7 L RDW 14.6 H Plt Count 215 ESR 88 H Sodium Potassium Chloride Carbon Dioxide Anion Gap BUN Creatinine Est GFR ( Amer) Est GFR (Non-Af Amer) POC Glucose (mg/dL) 216 H Random Glucose Lactic Acid Calcium Total Bilirubin AST ALT Alkaline Phosphatase Total Protein Albumin Globulin Albumin/Globulin Ratio Procalcitonin
--- NOTE | 2016-10-10 15:38 | CP.PCM.CON ---
History of Present Illness - History of Present Illness History of Present Illness: Necrotic tissue over a right total knee replacement. Past Patient History - Infectious Disease Hx of Infectious Diseases: None - Tetanus Immunizations Tetanus Immunization: Unknown - Past Medical History & Family History Past Medical History?: Yes - Past Social History Smoking Status: Never Smoked Chewing Tobacco Use: No Cigar Use: No Alcohol: None Drugs: Denies Home Situation {Lives}: Other (rehab) - CARDIAC Hx Hypercholesterolemia: Yes Hx Hypertension: Yes - PULMONARY Hx Pulmonary Embolism: Yes - NEUROLOGICAL Hx Syncope: Yes Other/Comment: Cerebral aneurysm - HEENT Hx HEENT Problems: No - RENAL Hx Kidney Stones: Yes - ENDOCRINE/METABOLIC Hx Diabetes Mellitus Type 2: Yes - HEMATOLOGICAL/ONCOLOGICAL Hx Blood Disorders: No - INTEGUMENTARY Hx Dermatological Problems: No - MUSCULOSKELETAL/RHEUMATOLOGICAL Hx Arthritis: Yes - GASTROINTESTINAL Hx Gastroesophageal Reflux: Yes Other/Comment: Umbilical Hernia Repair - GENITOURINARY/GYNECOLOGICAL Hx Genitourinary Disorders: No - PSYCHIATRIC Hx Depression: No - SURGICAL HISTORY Hx Appendectomy: Yes Hx Orthopedic Surgery: Yes (TKR left) Hx Tonsillectomy: Yes - ANESTHESIA Hx Anesthesia: Yes Hx Anesthesia Reactions: No Hx Malignant Hyperthermia: No Meds Allergies/Adverse Reactions: Allergies Allergy/AdvReac Type Severity Reaction Status Date / Time codeine Allergy Severe HALLUCINATI Verified 09/21/16 16:41 ONS - Medications Medications: Current Medications Acetaminophen (Tylenol 325mg Tab) 650 mg PO Q6 PRN PRN Reason: Pain, Mild (1-3) Acetaminophen (Tylenol 325mg Tab) 650 mg PO Q6 PRN PRN Reason: Fever >100.4 F Last Admin: 10/10/16 00:04 Dose: 650 mg Acetaminophen (Tylenol 325mg Tab) 650 mg PO Q4 PRN PRN Reason: Fever >100.4 F Atorvastatin Calcium (Lipitor) 40 mg PO DAILY [facility] Last Admin: 10/10/16 09:06 Dose: 40 mg Docusate Sodium (Colace) 100 mg PO BID [facility] Last Admin: 10/10/16 09:05 Dose: Not Given Enoxaparin Sodium (Lovenox) 80 mg SC Q12 [facility] PRN Reason: Protocol Last Admin: 10/10/16 09:06 Dose: 80 mg Hydromorphone HCl (Dilaudid) 0.5 mg IVP Q3H PRN PRN Reason: Pain, moderate (4-7) Last Admin: 10/09/16 21:18 Dose: 0.5 mg Hydromorphone HCl (Dilaudid) 1 mg IVP Q3H PRN PRN Reason: Pain, severe (8-10) Last Admin: 10/10/16 15:23 Dose: 1 mg Vancomycin HCl 1 gm/ Sodium (Chloride) 250 mls @ 166.667 mls/hr IVPB Q12@0200, 1400 [facility] Last Admin: 10/10/16 13:58 Dose: 166.667 mls/hr Meropenem 1 gm/ Sodium (Chloride) 100 mls @ 100 mls/hr IVPB Q8H [facility] Last Admin: 10/10/16 12:01 Dose: 100 mls/hr Metronidazole (Flagyl 500mg/100ml Ns) 100 mls @ 100 mls/hr IVPB Q8 [facility] Last Admin: 10/10/16 09:05 Dose: 100 mls/hr Insulin Human Lispro (Humalog) 0 units SC ACHS [facility] PRN Reason: Protocol Last Admin: 10/10/16 11:59 Dose: 2 unit Pantoprazole Sodium (Protonix Ec Tab) 40 mg PO DAILY [facility] Last Admin: 10/10/16 09:06 Dose: 40 mg Rivaroxaban (Xarelto) 15 mg PO BIDWM [facility] PRN Reason: Protocol Last Admin: 10/09/16 16:25 Dose: 15 mg Saccharomyces Boulardii (Florastor) 250 mg PO BID [facility] Valsartan (Diovan) 160 mg PO DAILY [facility] Last Admin: 10/10/16 09:05 Dose: 160 mg Results - Vital Signs Recent Vital Signs: Last Vital Signs Temp 99.8 F H 10/10/16 12:13 Pulse 90 10/10/16 12:13 Resp 21 10/10/16 12:13 BP 106/64 10/10/16 08:28 Pulse Ox 95 10/10/16 12:13 - Labs Result Diagrams: 10/10/16 08:19 10/10/16 06:15 Labs: Laboratory Results - last 24 hr 10/09/16 10/09/16 10/09/16 15:55 20:25 21:37 WBC RBC Hgb Hct MCV MCH MCHC RDW Plt Count ESR Sodium Potassium Chloride Carbon Dioxide Anion Gap BUN Creatinine Est GFR ( Amer) Est GFR (Non-Af Amer) POC Glucose (mg/dL) 185 H 173 H Random Glucose Lactic Acid Calcium Total Bilirubin AST ALT Alkaline Phosphatase Total Protein Albumin Globulin Albumin/Globulin Ratio Procalcitonin 0.17 L 10/10/16 10/10/16 10/10/16 05:22 06:15 06:15 WBC RBC Hgb Hct MCV MCH MCHC RDW Plt Count ESR Sodium 137 Potassium 3.7 Chloride 105 Carbon Dioxide 21 L Anion Gap 15 BUN 12 Creatinine 0.8 Est GFR ( Amer) > 60 Est GFR (Non-Af Amer) > 60 POC Glucose (mg/dL) 148 H Random Glucose 144 H Lactic Acid 1.1 Calcium 9.1 Total Bilirubin 0.9 AST 18 ALT 27 Alkaline Phosphatase 70 Total Protein 7.0 Albumin 3.7 Globulin 3.3 Albumin/Globulin Ratio 1.1 Procalcitonin 10/10/16 10/10/16 08:19 10:56 WBC 11.9 H RBC 3.85 Hgb 10.8 L Hct 33.2 L MCV 86.2 MCH 28.1 MCHC 32.7 L RDW 14.6 H Plt Count 215 ESR 88 H Sodium Potassium Chloride Carbon Dioxide Anion Gap BUN Creatinine Est GFR ( Amer) Est GFR (Non-Af Amer) POC Glucose (mg/dL) 216 H Random Glucose Lactic Acid Calcium Total Bilirubin AST ALT Alkaline Phosphatase Total Protein Albumin Globulin Albumin/Globulin Ratio Procalcitonin
--- NOTE | 2016-10-10 16:16 | CP.PCM.CON ---
History of Present Illness - History of Present Illness History of Present Illness: Octavia Dozier is a 61 year old diabetic, hypertensive female who was admitted for severe pain in her right leg on 10/08/16. She had undergone a total right knee replacement in August by Dr. Berry. Post- operatively she suffered a pulmonary embolus and was treated with Xarelto. She also developed a 5 x 5 cm area of skin necrosis over the TKR. I had the opportunity to examine her in my office on 10/03 for the skin necrosis. At that time, she was ambulating well with a cane and there were no signs of cellulitis. As there was no infection present and she was actively being treated for a PE, I recommended local wound care only. She apparently has done well until when she awoke in bed with "agonizing" pain in her right lower leg. She was admitted to [facility] with a WBC 14.9. She has been seen by Drs. Berry, Patel, and Heidi. The Xarelto has been stopped, and she is on Lovenox. She has also been placed on Flagyl, Vancomycin, and Meropenem. At the present time, her temp. is 99.8 and her WBC is 11.9. She is resting comfortably in bed and is only in distress when the pretibial region of her right lower leg is lightly palpated. Examination of her right knee does not demonstrate any significant change from my last examination of her. There is a 5 x 5 cm area of dry eschar over the knee. There is no surrounding area of cellulitis or any significant swelling in the leg. She has tenderness is only present over the pretibial region not the calf or foot. The right foot is not edematous and although she as a poor posterior tibial pulse, she has an excellent dorsalis pedis pulse. IMPRESSION: Uncertain as to the origin of the Temp. or elevated WBC. (There has been hematuria since admission. UTI?) It does not appear to be associated with the TKR. An RSD diagnosis also needs to be considered. PLAN: Surgical intervention for debridement of the eschar is not necessary at this time. Once her pulmonary status is stable, eventual debridement and wound vac therapy can be begun. Will follow. Thank you, Raj Singletary M.D. [phone] Past Patient History - Infectious Disease Hx of Infectious Diseases: None - Tetanus Immunizations Tetanus Immunization: Unknown - Past Medical History & Family History Past Medical History?: Yes - Past Social History Smoking Status: Never Smoked Chewing Tobacco Use: No Cigar Use: No Alcohol: None Drugs: Denies Home Situation {Lives}: Other (rehab) - CARDIAC Hx Hypercholesterolemia: Yes Hx Hypertension: Yes - PULMONARY Hx Pulmonary Embolism: Yes - NEUROLOGICAL Hx Syncope: Yes Other/Comment: Cerebral aneurysm - HEENT Hx HEENT Problems: No - RENAL Hx Kidney Stones: Yes - ENDOCRINE/METABOLIC Hx Diabetes Mellitus Type 2: Yes - HEMATOLOGICAL/ONCOLOGICAL Hx Blood Disorders: No - INTEGUMENTARY Hx Dermatological Problems: No - MUSCULOSKELETAL/RHEUMATOLOGICAL Hx Arthritis: Yes - GASTROINTESTINAL Hx Gastroesophageal Reflux: Yes Other/Comment: Umbilical Hernia Repair - GENITOURINARY/GYNECOLOGICAL Hx Genitourinary Disorders: No - PSYCHIATRIC Hx Depression: No - SURGICAL HISTORY Hx Appendectomy: Yes Hx Orthopedic Surgery: Yes (TKR left) Hx Tonsillectomy: Yes - ANESTHESIA Hx Anesthesia: Yes Hx Anesthesia Reactions: No Hx Malignant Hyperthermia: No Meds Allergies/Adverse Reactions: Allergies Allergy/AdvReac Type Severity Reaction Status Date / Time codeine Allergy Severe HALLUCINATI Verified 09/21/16 16:41 ONS - Medications Medications: Current Medications Acetaminophen (Tylenol 325mg Tab) 650 mg PO Q6 PRN PRN Reason: Pain, Mild (1-3) Acetaminophen (Tylenol 325mg Tab) 650 mg PO Q6 PRN PRN Reason: Fever >100.4 F Last Admin: 10/10/16 00:04 Dose: 650 mg Acetaminophen (Tylenol 325mg Tab) 650 mg PO Q4 PRN PRN Reason: Fever >100.4 F Atorvastatin Calcium (Lipitor) 40 mg PO DAILY [facility] Last Admin: 10/10/16 09:06 Dose: 40 mg Docusate Sodium (Colace) 100 mg PO BID [facility] Last Admin: 10/10/16 09:05 Dose: Not Given Enoxaparin Sodium (Lovenox) 80 mg SC Q12 [facility] PRN Reason: Protocol Last Admin: 10/10/16 09:06 Dose: 80 mg Hydromorphone HCl (Dilaudid) 0.5 mg IVP Q3H PRN PRN Reason: Pain, moderate (4-7) Last Admin: 10/09/16 21:18 Dose: 0.5 mg Hydromorphone HCl (Dilaudid) 1 mg IVP Q3H PRN PRN Reason: Pain, severe (8-10) Last Admin: 10/10/16 15:23 Dose: 1 mg Vancomycin HCl 1 gm/ Sodium (Chloride) 250 mls @ 166.667 mls/hr IVPB Q12@0200, 1400 [facility] Last Admin: 10/10/16 13:58 Dose: 166.667 mls/hr Meropenem 1 gm/ Sodium (Chloride) 100 mls @ 100 mls/hr IVPB Q8H [facility] Last Admin: 10/10/16 12:01 Dose: 100 mls/hr Metronidazole (Flagyl 500mg/100ml Ns) 100 mls @ 100 mls/hr IVPB Q8 [facility] Last Admin: 10/10/16 09:05 Dose: 100 mls/hr Insulin Human Lispro (Humalog) 0 units SC ACHS [facility] PRN Reason: Protocol Last Admin: 10/10/16 11:59 Dose: 2 unit Pantoprazole Sodium (Protonix Ec Tab) 40 mg PO DAILY [facility] Last Admin: 10/10/16 09:06 Dose: 40 mg Rivaroxaban (Xarelto) 15 mg PO BIDWM [facility] PRN Reason: Protocol Last Admin: 10/09/16 16:25 Dose: 15 mg Saccharomyces Boulardii (Florastor) 250 mg PO BID [facility] Valsartan (Diovan) 160 mg PO DAILY [facility] Last Admin: 10/10/16 09:05 Dose: 160 mg Results - Vital Signs Recent Vital Signs: Last Vital Signs Temp 99.8 F H 10/10/16 12:13 Pulse 90 10/10/16 12:13 Resp 21 10/10/16 12:13 BP 106/64 10/10/16 08:28 Pulse Ox 95 10/10/16 12:13 - Labs Result Diagrams: 10/10/16 08:19 10/10/16 06:15 Labs: Laboratory Results - last 24 hr 10/09/16 10/09/16 10/09/16 15:55 20:25 21:37 WBC RBC Hgb Hct MCV MCH MCHC RDW Plt Count ESR Sodium Potassium Chloride Carbon Dioxide Anion Gap BUN Creatinine Est GFR ( Amer) Est GFR (Non-Af Amer) POC Glucose (mg/dL) 185 H 173 H Random Glucose Lactic Acid Calcium Total Bilirubin AST ALT Alkaline Phosphatase Total Protein Albumin Globulin Albumin/Globulin Ratio Procalcitonin 0.17 L 10/10/16 10/10/16 10/10/16 05:22 06:15 06:15 WBC RBC Hgb Hct MCV MCH MCHC RDW Plt Count ESR Sodium 137 Potassium 3.7 Chloride 105 Carbon Dioxide 21 L Anion Gap 15 BUN 12 Creatinine 0.8 Est GFR ( Amer) > 60 Est GFR (Non-Af Amer) > 60 POC Glucose (mg/dL) 148 H Random Glucose 144 H Lactic Acid 1.1 Calcium 9.1 Total Bilirubin 0.9 AST 18 ALT 27 Alkaline Phosphatase 70 Total Protein 7.0 Albumin 3.7 Globulin 3.3 Albumin/Globulin Ratio 1.1 Procalcitonin 10/10/16 10/10/16 08:19 10:56 WBC 11.9 H RBC 3.85 Hgb 10.8 L Hct 33.2 L MCV 86.2 MCH 28.1 MCHC 32.7 L RDW 14.6 H Plt Count 215 ESR 88 H Sodium Potassium Chloride Carbon Dioxide Anion Gap BUN Creatinine Est GFR ( Amer) Est GFR (Non-Af Amer) POC Glucose (mg/dL) 216 H Random Glucose Lactic Acid Calcium Total Bilirubin AST ALT Alkaline Phosphatase Total Protein Albumin Globulin Albumin/Globulin Ratio Procalcitonin
[2016-10-10] MEDS: Saccharomyces Boulardi 250 mg Cap PO SCH (17:12)
[2016-10-10] MEDS: HYDROmorphone 0.5 mg/0.5 ml ISec IVP PRN (20:20)
[2016-10-11] MEDS: metroNIDAZOLE 500mg/100ml NS 100 ML IVPB SCH ×3 (00:02→16:34)
[2016-10-11] MEDS: HYDROmorphone 0.5 mg/0.5 ml ISec IVP PRN ×4 (00:59→20:21)
[2016-10-11] MEDS: Meropenem 1 GM in Sodium Chloride 0.9% 100 ML IVPB SCH ×3 (04:42→20:12)
[2016-10-11] MEDS: Insulin Lispro (humaLOG) 100 Units/ml Inj SC SCH ×4 (07:07→21:19)
[2016-10-11 07:20] LABS: BASO # 0.1 K/uL (0.0-0.2); BASO % 0.7 % (0.0-2.0); EOS # 0.1 K/uL (0.0-0.7); EOS % 1.7 % (0.0-4.0); HEMATOCRIT 27.4 % (34.0-47.0); LYMPH # 1.4 K/uL (1.0-4.3); LYMPH % 16.3 % (20.0-40.0); MEAN CELL VOLUME 84.2 fl (81.0-99.0); MEAN CORPUSCULAR HEMOGLOBIN 28.2 pg (27.0-31.0); MEAN CORPUSCULAR HGB CONC 33.5 g/dL (33.0-37.0); MEAN PLATELET VOLUME 8.3 fl (7.2-11.7); MONO # 0.6 K/uL (0.0-0.8); MONO % 7.4 % (0.0-10.0); NEUT # 6.1 K/uL (1.8-7.0); NEUT % 73.9 % (50.0-75.0); NRBC % 0.1 % (0.0-0.0); RED CELL DISTRIBUTION WIDTH 13.9 % (11.5-14.5); WHITE BLOOD COUNT 8.3 K/uL (4.8-10.8)
[2016-10-11 07:34] LABS: ALKALINE PHOSPHATASE 66 U/L (38-126); ALT/SGPT 26 U/L (9-52); AST/SGOT 16 U/L (14-36); BILIRUBIN,TOTAL 0.5 mg/dl (0.2-1.3); BLOOD UREA NITROGEN 10 mg/dl (7-17); CALCIUM 8.5 mg/dL (8.4-10.2); CARBON DIOXIDE 24 mmol/L (22-30); CHLORIDE 102 mmol/L (98-107); GFR AFRICAN-AMERICAN > 60; GLUCOSE,RANDOM 118 mg/dL (65-105); POTASSIUM 3.6 MMOL/L (3.6-5.0); SODIUM 137 mmol/l (132-148); TOTAL PROTEIN 6.3 G/DL (6.3-8.2)
[2016-10-11] MEDS: Saccharomyces Boulardi 250 mg Cap PO SCH ×2 (08:53→16:35)
[2016-10-11] MEDS: Enoxaparin 80 mg Syringe SC SCH ×2 (08:55→20:12)
[2016-10-11] MEDS: Pantoprazole 40 mg EC Tab PO SCH (08:56)
--- NOTE | 2016-10-11 10:46 | CP.PCM.PN ---
Subjective - Date & Time of Evaluation Date of Evaluation: 10/11/16 Time of Evaluation: 09:30 - Subjective Subjective: NO CHEST PAIN OR SOB Objective - Vital Signs/Intake and Output Vital Signs (last 24 hours): Temp Pulse Resp BP Pulse Ox 97.6 F 82 20 109/66 95 10/11/16 08:21 10/11/16 08:21 10/11/16 08:21 10/11/16 08:21 10/11/16 08:21 - Medications Medications: Current Medications Acetaminophen (Tylenol 325mg Tab) 650 mg PO Q6 PRN PRN Reason: Pain, Mild (1-3) Acetaminophen (Tylenol 325mg Tab) 650 mg PO Q6 PRN PRN Reason: Fever >100.4 F Last Admin: 10/10/16 00:04 Dose: 650 mg Acetaminophen (Tylenol 325mg Tab) 650 mg PO Q4 PRN PRN Reason: Fever >100.4 F Atorvastatin Calcium (Lipitor) 40 mg PO DAILY [facility] Last Admin: 10/11/16 08:55 Dose: 40 mg Docusate Sodium (Colace) 100 mg PO BID [facility] Last Admin: 10/11/16 08:53 Dose: Not Given Enoxaparin Sodium (Lovenox) 80 mg SC Q12 [facility] PRN Reason: Protocol Last Admin: 10/11/16 08:55 Dose: 80 mg Hydromorphone HCl (Dilaudid) 0.5 mg IVP Q3H PRN PRN Reason: Pain, moderate (4-7) Last Admin: 10/11/16 10:19 Dose: 0.5 mg Hydromorphone HCl (Dilaudid) 1 mg IVP Q3H PRN PRN Reason: Pain, severe (8-10) Last Admin: 10/10/16 20:20 Dose: 1 mg Vancomycin HCl 1 gm/ Sodium (Chloride) 250 mls @ 166.667 mls/hr IVPB Q12@0200, 1400 [facility] Last Admin: 10/11/16 02:07 Dose: 166.667 mls/hr Meropenem 1 gm/ Sodium (Chloride) 100 mls @ 100 mls/hr IVPB Q8H [facility] Last Admin: 10/11/16 04:42 Dose: 100 mls/hr Metronidazole (Flagyl 500mg/100ml Ns) 100 mls @ 100 mls/hr IVPB Q8 [facility] Last Admin: 10/11/16 08:53 Dose: 100 mls/hr Insulin Human Lispro (Humalog) 0 units SC ACHS [facility] PRN Reason: Protocol Last Admin: 10/11/16 07:07 Dose: Not Given Pantoprazole Sodium (Protonix Ec Tab) 40 mg PO DAILY [facility] Last Admin: 10/11/16 08:56 Dose: 40 mg Rivaroxaban (Xarelto) 15 mg PO BIDWM [facility] PRN Reason: Protocol Last Admin: 10/09/16 16:25 Dose: 15 mg Saccharomyces Boulardii (Florastor) 250 mg PO BID [facility] Last Admin: 10/11/16 08:53 Dose: 250 mg Valsartan (Diovan) 160 mg PO DAILY [facility] Last Admin: 10/11/16 09:06 Dose: 160 mg - Labs Labs: 10/11/16 06:10 10/11/16 06:10 PT 10.6 SECONDS (9.6-11.2) 10/09/16 04:15 INR 1.02 (0.92-1.08) 10/09/16 04:15 APTT 26.0 SECONDS (23.3-32.5) 10/09/16 04:15 - Respiratory Exam Respiratory Exam: Clear to Ausculation Bilateral - Cardiovascular Exam Cardiovascular Exam: REGULAR RHYTHM, +S1, +S2 Assessment and Plan - Assessment and Plan (Free Text) Assessment: HYPERTENSION HYPERLIPIDEMIA RECENT PE S/P RECENT RT TKR RIGHT KNEE CELLULITIS Plan: CONTINUE ANTIBIOTICS, VALSARTAN, ATORVASTATIN AND LOVENOX
--- NOTE | 2016-10-11 15:04 | CP.PCM.PN ---
Subjective - Date & Time of Evaluation Date of Evaluation: 10/11/16 Time of Evaluation: 14:45 - Subjective Subjective: Hospitalist Progress Note (Patient was seen and examined at 2:45 PM 10/11/16 650- 2) 61 year old female who was admitted on 10/09/16 for right knee pain/swelling/ warmth. She has a history of revision of Right Knee TKR roughly 3 weeks prior to admission by Orthopedics Dr. Guillen. She had developed some redness/ drainage from the right knee for which she finished course of Levaquin on . Then night before admission she could not bear weight on the Right Leg and redness and edema had worsened and therefore she was admitted for further evaluation and treatment. ROS Pain in Right Knee if she tries to move it: posterior aspect of right knee extending down to pedal surface of right foot NO bowel movement since Sunday (she normally does not move her bowels every day , usually every 3 to 4 days) NO longer experiencing chills NO other complaints upon FULL ROS Exam: HEENT: NCA, EOMI, PERRLA, NO pharyngeal erythema/exudate, NO cervical/ supraclavicular/submandibular lymphadenopathy, NO thyromegaly Cardio: NS1 and NS2, NO M/R/G Respiratory: CTA B/L, NO R/R/W GI: BSx4, Soft, NT, Central Obesity, NO HSM, NO guarding/rebound tenderness Ext: Right Knee Anterior aspect with black irregularly shaped eschar (roughly 4- 5 cm in diameter) without surrounding signs of cellulitis, tender to the touch, Pedal and Radial Pulses are strong and equal, Capillary Refill is 2 seconds Neuro: CN II through XII are grossly intact 1). Right Knee Pain S/P Revision Surgery with Fever Meropenem 1 gm IV Q8H Flagyl 500 mg IV Q8H Vancomycin 1 gm IV Q12H F/U Vancomycin Trough 1:30 AM 10/12/16 Fever with TMax at 99.4 (12:39 AM 10/11/16) Blood Culture 10/09/16 is negative to date Urine Culture 10/09/16 shows NO growth ID Dr. Cecelia Sterling Plastic Surgery Dr. Singletary evaluated patient on 10/10/16: please refer to his note for his assessment I spoke with Radiologist Dr. Canchola today as the report for CT Right LE showed peripherally enhancing fluid collection about the joint space with abscess not excluded but the addendum was not clear as to what was being amended. Dr. Canchola took a look at the CT himself and stated that there was fluid in the joint space which appeared to be a seroma: does this fluid need to be aspirated? Anticipated length of antibiotic is not known at this point however typically is 4 to 6 weeks: As per my conversation with Fashion Intern Alycia (extention [id number]), if less than 2 weeks then TCU and if greater than 2 weeks then outpatient ROHIT at [facility] (as per patient preference) once plan by Orthopedics and Plastics is solidified PICC Line order has been placed 10/11/16 in anticipation for extended IV antibiotic administration Pulmonology Dr. Sweeney Cardiology Dr. Weir Orthopedics Dr. Guillen 2). Hx PE Holding Xarelto for now for possible surgical procedure: Lovenox 80 mg SC Q12H F/U Hypercoagulable Workup ordered by Dr. Sweeney: Antiphospholipid Ab, Antithrombin III, Factor V Leiden, Protein C, Protein S, Prothrombin Gene 3). Hx DM 2 Lispro ISS Controlled 4). Hx HTN Valsartan 160 mg PO 1x/day Controlled 5). Hx HLD Lipitor 40 mg PO 1x/day 6). Prophylactic Measure Tylenol 650 mg PO Q4H PRN Fever Colace 100 mg PO 2x/day Lovenox 80 mg SC Q12H Dilaudid 0.5 mg IV Q3H PRN Moderate Pain Dilaudid 1 mg IV Q3H PRN Severe Pain Protonix 40 mg PO 1x/day Florastor 250 mg PO 2x/day Objective - Vital Signs/Intake and Output Vital Signs (last 24 hours): Temp Pulse Resp BP Pulse Ox 97.6 F 82 20 109/66 95 10/11/16 08:21 10/11/16 08:21 10/11/16 08:21 10/11/16 08:21 10/11/16 08:21 - Medications Medications: Current Medications Acetaminophen (Tylenol 325mg Tab) 650 mg PO Q6 PRN PRN Reason: Pain, Mild (1-3) Acetaminophen (Tylenol 325mg Tab) 650 mg PO Q6 PRN PRN Reason: Fever >100.4 F Last Admin: 10/10/16 00:04 Dose: 650 mg Acetaminophen (Tylenol 325mg Tab) 650 mg PO Q4 PRN PRN Reason: Fever >100.4 F Atorvastatin Calcium (Lipitor) 40 mg PO DAILY [facility] Last Admin: 10/11/16 08:55 Dose: 40 mg Docusate Sodium (Colace) 100 mg PO BID [facility] Last Admin: 10/11/16 08:53 Dose: Not Given Enoxaparin Sodium (Lovenox) 80 mg SC Q12 [facility] PRN Reason: Protocol Last Admin: 10/11/16 08:55 Dose: 80 mg Hydromorphone HCl (Dilaudid) 0.5 mg IVP Q3H PRN PRN Reason: Pain, moderate (4-7) Last Admin: 10/11/16 10:19 Dose: 0.5 mg Hydromorphone HCl (Dilaudid) 1 mg IVP Q3H PRN PRN Reason: Pain, severe (8-10) Last Admin: 10/10/16 20:20 Dose: 1 mg Vancomycin HCl 1 gm/ Sodium (Chloride) 250 mls @ 166.667 mls/hr IVPB Q12@0200, 1400 [facility] Last Admin: 10/11/16 14:31 Dose: 166.667 mls/hr Meropenem 1 gm/ Sodium (Chloride) 100 mls @ 100 mls/hr IVPB Q8H [facility] Last Admin: 10/11/16 12:21 Dose: 100 mls/hr Metronidazole (Flagyl 500mg/100ml Ns) 100 mls @ 100 mls/hr IVPB Q8 [facility] Last Admin: 10/11/16 08:53 Dose: 100 mls/hr Insulin Human Lispro (Humalog) 0 units SC ACHS [facility] PRN Reason: Protocol Last Admin: 10/11/16 12:21 Dose: 1 unit Pantoprazole Sodium (Protonix Ec Tab) 40 mg PO DAILY [facility] Last Admin: 10/11/16 08:56 Dose: 40 mg Rivaroxaban (Xarelto) 15 mg PO BIDWM [facility] PRN Reason: Protocol Last Admin: 10/09/16 16:25 Dose: 15 mg Saccharomyces Boulardii (Florastor) 250 mg PO BID [facility] Last Admin: 10/11/16 08:53 Dose: 250 mg Valsartan (Diovan) 160 mg PO DAILY [facility] Last Admin: 10/11/16 09:06 Dose: 160 mg - Labs Labs: 10/11/16 06:10 10/11/16 06:10 PT 10.6 SECONDS (9.6-11.2) 10/09/16 04:15 INR 1.02 (0.92-1.08) 10/09/16 04:15 APTT 26.0 SECONDS (23.3-32.5) 10/09/16 04:15
[2016-10-12] MEDS: metroNIDAZOLE 500mg/100ml NS 100 ML IVPB SCH ×2 (02:12→08:28)
[2016-10-12] MEDS: Meropenem 1 GM in Sodium Chloride 0.9% 100 ML IVPB SCH ×3 (05:06→19:30)
[2016-10-12] MEDS: HYDROmorphone 0.5 mg/0.5 ml ISec IVP PRN ×2 (05:53→08:49)
[2016-10-12] MEDS: Insulin Lispro (humaLOG) 100 Units/ml Inj SC SCH ×4 (06:38→22:14)
[2016-10-12 07:57] LABS: BASO % 0.5 % (0.0-2.0); EOS # 0.2 K/uL (0.0-0.7); EOS % 2.7 % (0.0-4.0); HEMATOCRIT 29.1 % (34.0-47.0); LYMPH # 1.1 K/uL (1.0-4.3); LYMPH % 15.4 % (20.0-40.0); MEAN CELL VOLUME 84.4 fl (81.0-99.0); MEAN CORPUSCULAR HEMOGLOBIN 28.3 pg (27.0-31.0); MEAN CORPUSCULAR HGB CONC 33.5 g/dL (33.0-37.0); MEAN PLATELET VOLUME 8.3 fl (7.2-11.7); MONO # 0.5 K/uL (0.0-0.8); MONO % 7.6 % (0.0-10.0); NEUT # 5.3 K/uL (1.8-7.0); NEUT % 73.8 % (50.0-75.0); RED CELL DISTRIBUTION WIDTH 13.6 % (11.5-14.5); WHITE BLOOD COUNT 7.2 K/uL (4.8-10.8)
[2016-10-12 08:09] LABS: BLOOD UREA NITROGEN 10 mg/dl (7-17); CALCIUM 8.7 mg/dL (8.4-10.2); CARBON DIOXIDE 24 mmol/L (22-30); CHLORIDE 102 mmol/L (98-107); GFR AFRICAN-AMERICAN > 60; GLUCOSE,RANDOM 123 mg/dL (65-105); POTASSIUM 3.8 MMOL/L (3.6-5.0); SODIUM 138 mmol/l (132-148)
[2016-10-12] MEDS: Enoxaparin 80 mg Syringe SC SCH ×2 (08:30→21:35)
[2016-10-12] MEDS: Pantoprazole 40 mg EC Tab PO SCH (08:30)
[2016-10-12] MEDS: Saccharomyces Boulardi 250 mg Cap PO SCH ×2 (08:31→16:49)
--- NOTE | 2016-10-12 10:24 | CP.PCM.CON ---
History of Present Illness - History of Present Illness History of Present Illness: 61 yo woman w/ complicated history s/p recent complex right total knee revision was admitted for PE and now referred for pain management. Patient has been seen by orthopedics, plastics, pulm, and ID. Patient has had a total of 6 surgeries on the right knee, but hasn't had any unusual pain until this past week, when she started feeling burning pain below the knee over the anterior bass to the ankle. There is no pain along the posterior aspect. Patient does have diabetes and complains of neuropathic pain over the fingers and toes. She has visual hallucinations from codeine and morphine, but tolerates Dilaudid fine. Percocet wasn't effective for her pain but didn't have side effects from it. Past Patient History - Infectious Disease Hx of Infectious Diseases: None - Tetanus Immunizations Tetanus Immunization: Unknown - Past Medical History & Family History Past Medical History?: Yes - Past Social History Smoking Status: Never Smoked Chewing Tobacco Use: No Cigar Use: No Alcohol: None Drugs: Denies Home Situation {Lives}: Other (rehab) - CARDIAC Hx Hypercholesterolemia: Yes Hx Hypertension: Yes - PULMONARY Hx Pulmonary Embolism: Yes - NEUROLOGICAL Hx Syncope: Yes Other/Comment: Cerebral aneurysm - HEENT Hx HEENT Problems: No - RENAL Hx Kidney Stones: Yes - ENDOCRINE/METABOLIC Hx Diabetes Mellitus Type 2: Yes - HEMATOLOGICAL/ONCOLOGICAL Hx Blood Disorders: No - INTEGUMENTARY Hx Dermatological Problems: No - MUSCULOSKELETAL/RHEUMATOLOGICAL Hx Arthritis: Yes - GASTROINTESTINAL Hx Gastroesophageal Reflux: Yes Other/Comment: Umbilical Hernia Repair - GENITOURINARY/GYNECOLOGICAL Hx Genitourinary Disorders: No - PSYCHIATRIC Hx Depression: No - SURGICAL HISTORY Hx Appendectomy: Yes Hx Orthopedic Surgery: Yes (TKR left) Hx Tonsillectomy: Yes - ANESTHESIA Hx Anesthesia: Yes Hx Anesthesia Reactions: No Hx Malignant Hyperthermia: No Meds Allergies/Adverse Reactions: Allergies Allergy/AdvReac Type Severity Reaction Status Date / Time codeine Allergy Severe HALLUCINATI Verified 09/21/16 16:41 ONS - Medications Medications: Current Medications Acetaminophen (Tylenol 325mg Tab) 650 mg PO Q6 PRN PRN Reason: Pain, Mild (1-3) Acetaminophen (Tylenol 325mg Tab) 650 mg PO Q6 PRN PRN Reason: Fever >100.4 F Last Admin: 10/10/16 00:04 Dose: 650 mg Acetaminophen (Tylenol 325mg Tab) 650 mg PO Q4 PRN PRN Reason: Fever >100.4 F Atorvastatin Calcium (Lipitor) 40 mg PO DAILY [facility] Last Admin: 10/12/16 08:31 Dose: 40 mg Diphenhydramine HCl (Benadryl) 25 mg PO Q6 PRN PRN Reason: Itching / Pruritus Stop: 10/13/16 22:04 Last Admin: 10/11/16 22:54 Dose: 25 mg Docusate Sodium (Colace) 100 mg PO BID [facility] Last Admin: 10/12/16 08:31 Dose: 100 mg Enoxaparin Sodium (Lovenox) 80 mg SC Q12 [facility] PRN Reason: Protocol Last Admin: 10/12/16 08:30 Dose: 80 mg Hydromorphone HCl (Dilaudid) 1 mg IVP Q3H PRN PRN Reason: Pain, severe (8-10) Last Admin: 10/12/16 08:49 Dose: 1 mg Vancomycin HCl 1 gm/ Sodium (Chloride) 250 mls @ 166.667 mls/hr IVPB Q12@0200, 1400 [facility] Last Admin: 10/12/16 02:13 Dose: 166.667 mls/hr Meropenem 1 gm/ Sodium (Chloride) 100 mls @ 100 mls/hr IVPB Q8H [facility] Last Admin: 10/12/16 05:06 Dose: 100 mls/hr Metronidazole (Flagyl 500mg/100ml Ns) 100 mls @ 100 mls/hr IVPB Q8 [facility] Last Admin: 10/12/16 08:28 Dose: 100 mls/hr Insulin Human Lispro (Humalog) 0 units SC ACHS [facility] PRN Reason: Protocol Last Admin: 10/12/16 06:38 Dose: Not Given Pantoprazole Sodium (Protonix Ec Tab) 40 mg PO DAILY [facility] Last Admin: 10/12/16 08:30 Dose: 40 mg Rivaroxaban (Xarelto) 15 mg PO BIDWM [facility] PRN Reason: Protocol Last Admin: 10/09/16 16:25 Dose: 15 mg Saccharomyces Boulardii (Florastor) 250 mg PO BID [facility] Last Admin: 10/12/16 08:31 Dose: 250 mg Valsartan (Diovan) 160 mg PO DAILY [facility] Last Admin: 10/12/16 08:31 Dose: 160 mg Physical Exam - Extremities Exam Additional comments: Dressing over right knee intact. No erythema, coldness, edema or color changes. TTP over anterior bass, mild allodynia. Bed sheets and blankets over the leg didn't elicit any pain. Results - Vital Signs Recent Vital Signs: Last Vital Signs Temp 97.7 F 10/12/16 07:35 Pulse 85 10/12/16 07:35 Resp 18 10/12/16 07:35 BP 108/66 10/12/16 07:35 Pulse Ox 96 10/12/16 07:35 - Labs Result Diagrams: 10/12/16 06:30 10/12/16 06:30 Labs: Laboratory Results - last 24 hr 10/11/16 10/11/16 10/11/16 11:26 15:29 21:07 WBC RBC Hgb Hct MCV MCH MCHC RDW Plt Count MPV Neut % (Auto) Lymph % (Auto) [place] % (Auto) Eos % (Auto) Baso % (Auto) Neut # Lymph # [place] # Eos # Baso # Sodium Potassium Chloride Carbon Dioxide Anion Gap BUN Creatinine Est GFR ( Amer) Est GFR (Non-Af Amer) POC Glucose (mg/dL) 153 H 178 H 141 H Random Glucose Calcium 10/12/16 10/12/16 10/12/16 06:30 06:30 06:34 WBC 7.2 RBC 3.45 L Hgb 9.8 L Hct 29.1 L MCV 84.4 MCH 28.3 MCHC 33.5 RDW 13.6 Plt Count 222 MPV 8.3 Neut % (Auto) 73.8 Lymph % (Auto) 15.4 L [place] % (Auto) 7.6 Eos % (Auto) 2.7 Baso % (Auto) 0.5 Neut # 5.3 Lymph # 1.1 [place] # 0.5 Eos # 0.2 Baso # 0.0 Sodium 138 Potassium 3.8 Chloride 102 Carbon Dioxide 24 Anion Gap 15 BUN 10 Creatinine 0.6 L Est GFR ( Amer) > 60 Est GFR (Non-Af Amer) > 60 POC Glucose (mg/dL) 134 H Random Glucose 123 H Calcium 8.7 Assessment & Plan (1) Status post revision of total knee replacement Assessment and Plan: 61 yo woman w/ right lower leg pain. Patient with PE, on anticoagulation. - d/c Dilaudid IV - start Dilaudid PO, 2mg for moderate pain and 4mg for severe pain, q4h PRN - trial of LYrica 50mg q8h for possible CRPS - consider X-ray or CT of right lower leg to rule out other pathologies of the pain - PT eval Status: Acute Priority: High
--- NOTE | 2016-10-12 11:36 | CP.PCM.PN ---
Subjective - Date & Time of Evaluation Date of Evaluation: 10/12/16 Time of Evaluation: 10:20 - Subjective Subjective: NO CHEST PAIN OR SOB Objective - Vital Signs/Intake and Output Vital Signs (last 24 hours): Temp Pulse Resp BP Pulse Ox 97.7 F 85 18 108/66 96 10/12/16 07:35 10/12/16 07:35 10/12/16 07:35 10/12/16 07:35 10/12/16 07:35 - Medications Medications: Current Medications Acetaminophen (Tylenol 325mg Tab) 650 mg PO Q6 PRN PRN Reason: Pain, Mild (1-3) Acetaminophen (Tylenol 325mg Tab) 650 mg PO Q6 PRN PRN Reason: Fever >100.4 F Last Admin: 10/10/16 00:04 Dose: 650 mg Acetaminophen (Tylenol 325mg Tab) 650 mg PO Q4 PRN PRN Reason: Fever >100.4 F Atorvastatin Calcium (Lipitor) 40 mg PO DAILY [facility] Last Admin: 10/12/16 08:31 Dose: 40 mg Diphenhydramine HCl (Benadryl) 25 mg PO Q6 PRN PRN Reason: Itching / Pruritus Stop: 10/13/16 22:04 Last Admin: 10/12/16 11:00 Dose: 25 mg Docusate Sodium (Colace) 100 mg PO BID [facility] Last Admin: 10/12/16 08:31 Dose: 100 mg Enoxaparin Sodium (Lovenox) 80 mg SC Q12 [facility] PRN Reason: Protocol Last Admin: 10/12/16 08:30 Dose: 80 mg Hydromorphone HCl (Dilaudid) 2 mg PO Q4 PRN PRN Reason: Pain, moderate (4-7) Hydromorphone HCl (Dilaudid) 4 mg PO Q4 PRN PRN Reason: Pain, severe (8-10) Last Admin: 10/12/16 10:57 Dose: 4 mg Vancomycin HCl 1 gm/ Sodium (Chloride) 250 mls @ 166.667 mls/hr IVPB Q12@0200, 1400 [facility] Last Admin: 10/12/16 02:13 Dose: 166.667 mls/hr Meropenem 1 gm/ Sodium (Chloride) 100 mls @ 100 mls/hr IVPB Q8H [facility] Last Admin: 10/12/16 05:06 Dose: 100 mls/hr Metronidazole (Flagyl 500mg/100ml Ns) 100 mls @ 100 mls/hr IVPB Q8 [facility] Last Admin: 10/12/16 08:28 Dose: 100 mls/hr Insulin Human Lispro (Humalog) 0 units SC ACHS [facility] PRN Reason: Protocol Last Admin: 10/12/16 06:38 Dose: Not Given Pantoprazole Sodium (Protonix Ec Tab) 40 mg PO DAILY [facility] Last Admin: 10/12/16 08:30 Dose: 40 mg Pregabalin (Lyrica) 50 mg PO TID [facility] Rivaroxaban (Xarelto) 15 mg PO BIDWM [facility] PRN Reason: Protocol Last Admin: 10/09/16 16:25 Dose: 15 mg Saccharomyces Boulardii (Florastor) 250 mg PO BID [facility] Last Admin: 10/12/16 08:31 Dose: 250 mg Valsartan (Diovan) 160 mg PO DAILY [facility] Last Admin: 10/12/16 08:31 Dose: 160 mg - Labs Labs: 10/12/16 06:30 10/12/16 06:30 PT 10.6 SECONDS (9.6-11.2) 10/09/16 04:15 INR 1.02 (0.92-1.08) 10/09/16 04:15 APTT 26.0 SECONDS (23.3-32.5) 10/09/16 04:15 - Respiratory Exam Respiratory Exam: Clear to Ausculation Bilateral - Cardiovascular Exam Cardiovascular Exam: REGULAR RHYTHM, +S1, +S2 - Additional Findings Additional findings: PAIN MANAGEMENT CONSULT REVIEWED WITH PO DILAUDID AND LYRICA Assessment and Plan - Assessment and Plan (Free Text) Assessment: S/P RT TKR RT KNEE CELLULITIS HYPERTENSION HYPERLIPIDEMIA RECENT PE DIABETES MELLITUS Plan: CONTINUE IV ANTIBIOTICS, VALSARTAN, ATORVASTATIN AND LOVENOX
--- NOTE | 2016-10-12 12:30 | CP.PCM.PN ---
Subjective - Date & Time of Evaluation Date of Evaluation: 10/12/16 Time of Evaluation: 12:24 - Subjective Subjective: PATIENT SEEN OBSERVED BEDSIDE COMPLAINING OF KNEE PAIN PAIN MANAGEMENT CONSULT TODAY, APPRECIATED OTHERWISE PATIENT IS STABLE FOR PICC AND RETAIL CLIENT SOLUTIONS CONSULTANT IV ABX, VSS NAD Objective - Vital Signs/Intake and Output Vital Signs (last 24 hours): Temp Pulse Resp BP Pulse Ox 97.7 F 85 18 108/66 96 10/12/16 07:35 10/12/16 07:35 10/12/16 07:35 10/12/16 07:35 10/12/16 07:35 Exam: GEN: WDWN HEENT: NCA, EOMI, PERRLA, Cardio: NS1 and NS2, NO M/R/G Respiratory: CTA B/L, NO R/R/W GI: BSx4, Soft, NT, Central Obesity, NO HSM, NO guarding/rebound tenderness Ext: Right Knee Anterior aspect with black irregularly shaped eschar (roughly 4- 5 cm in diameter) without surrounding signs of cellulitis, tender to the touch, Pedal and Radial Pulses are strong and equal, Capillary Refill is 2 seconds Neuro: CN II through XII are grossly intact - Medications Medications: Current Medications Acetaminophen (Tylenol 325mg Tab) 650 mg PO Q6 PRN PRN Reason: Pain, Mild (1-3) Acetaminophen (Tylenol 325mg Tab) 650 mg PO Q6 PRN PRN Reason: Fever >100.4 F Last Admin: 10/10/16 00:04 Dose: 650 mg Acetaminophen (Tylenol 325mg Tab) 650 mg PO Q4 PRN PRN Reason: Fever >100.4 F Atorvastatin Calcium (Lipitor) 40 mg PO DAILY [facility] Last Admin: 10/12/16 08:31 Dose: 40 mg Diphenhydramine HCl (Benadryl) 25 mg PO Q6 PRN PRN Reason: Itching / Pruritus Stop: 10/13/16 22:04 Last Admin: 10/12/16 11:00 Dose: 25 mg Docusate Sodium (Colace) 100 mg PO BID [facility] Last Admin: 10/12/16 08:31 Dose: 100 mg Enoxaparin Sodium (Lovenox) 80 mg SC Q12 [facility] PRN Reason: Protocol Last Admin: 10/12/16 08:30 Dose: 80 mg Hydromorphone HCl (Dilaudid) 2 mg PO Q4 PRN PRN Reason: Pain, moderate (4-7) Hydromorphone HCl (Dilaudid) 4 mg PO Q4 PRN PRN Reason: Pain, severe (8-10) Last Admin: 10/12/16 10:57 Dose: 4 mg Vancomycin HCl 1 gm/ Sodium (Chloride) 250 mls @ 166.667 mls/hr IVPB Q12@0200, 1400 [facility] Last Admin: 10/12/16 02:13 Dose: 166.667 mls/hr Meropenem 1 gm/ Sodium (Chloride) 100 mls @ 100 mls/hr IVPB Q8H [facility] Last Admin: 10/12/16 05:06 Dose: 100 mls/hr Metronidazole (Flagyl 500mg/100ml Ns) 100 mls @ 100 mls/hr IVPB Q8 [facility] Last Admin: 10/12/16 08:28 Dose: 100 mls/hr Insulin Human Lispro (Humalog) 0 units SC ACHS [facility] PRN Reason: Protocol Last Admin: 10/12/16 12:19 Dose: Not Given Pantoprazole Sodium (Protonix Ec Tab) 40 mg PO DAILY [facility] Last Admin: 10/12/16 08:30 Dose: 40 mg Pregabalin (Lyrica) 50 mg PO TID [facility] Rivaroxaban (Xarelto) 15 mg PO BIDWM [facility] PRN Reason: Protocol Last Admin: 10/09/16 16:25 Dose: 15 mg Saccharomyces Boulardii (Florastor) 250 mg PO BID [facility] Last Admin: 10/12/16 08:31 Dose: 250 mg Valsartan (Diovan) 160 mg PO DAILY [facility] Last Admin: 10/12/16 08:31 Dose: 160 mg - Labs Labs: 10/12/16 06:30 10/12/16 06:30 PT 10.6 SECONDS (9.6-11.2) 10/09/16 04:15 INR 1.02 (0.92-1.08) 10/09/16 04:15 APTT 26.0 SECONDS (23.3-32.5) 10/09/16 04:15 Assessment and Plan - Assessment and Plan (Free Text) Plan: 61 year old female who was admitted on 10/09/16 for right knee pain/swelling/ warmth. She has a history of revision of Right Knee TKR roughly 3 weeks prior to admission by Orthopedics Dr. Guillen. She had developed some redness/ drainage from the right knee for which she finished course of Levaquin on . Then night before admission she could not bear weight on the Right Leg and redness and edema had worsened and therefore she was admitted for further evaluation and treatment. 1). Right Knee Pain S/P Revision Surgery with Fever 6 weeks IV Antibiotics with PICC on discharge. Discussed with Dr. Gordon today in detail, will change flagyl to PO and evaluate tomorrow for snf abx Meropenem 1 gm IV Q8H Flagyl 500 mg IV Q8H CHANGE TO PO TODAY Vancomycin 1 gm IV Q12H Afebrile Blood Culture 10/09/16 is negative to date Urine Culture 10/09/16 shows NO growth ID Dr. Cecelia Gordon appreciated and followed Plastic Surgery Dr. Singletary no surgery at this time. Treat PE and then debridement later. CT Right LE 10/08/16 showed peripherally enhancing fluid collection about the joint space which appeared to be a seroma PICC Line order has been placed 10/11/16 in anticipation for extended IV antibiotic administration Pulmonology Dr. Sweeney Cardiology Dr. Weir Orthopedics Dr. Guillen 2). Hx PE Will resume Xarelto F/U Hypercoagulable Workup ordered by Dr. Sweeney: Antiphospholipid Ab, Antithrombin III, Factor V Leiden, Protein C, Protein S, Prothrombin Gene 3). Hx DM 2 Lispro ISS Controlled 4). Hx HTN Valsartan 160 mg PO 1x/day Controlled 5). Hx HLD Lipitor 40 mg PO 1x/day
--- NOTE | 2016-10-12 19:21 | CP.PCM.PN ---
Subjective - Date & Time of Evaluation Date of Evaluation: 10/12/16 Time of Evaluation: 19:17 - Subjective Subjective: I D NOTE HAVE ADJUSTED ANTIBIOTICS ALONG C DOSES VANCOMYCIN 1 GRAM IV Q24H MEROPENEN 1 GM IV Q12H FLAGL PO Objective - Vital Signs/Intake and Output Vital Signs (last 24 hours): Temp Pulse Resp BP Pulse Ox 98.4 F 89 18 108/66 96 10/12/16 16:18 10/12/16 16:18 10/12/16 16:18 10/12/16 16:18 10/12/16 16:18 - Medications Medications: Current Medications Acetaminophen (Tylenol 325mg Tab) 650 mg PO Q6 PRN PRN Reason: Pain, Mild (1-3) Acetaminophen (Tylenol 325mg Tab) 650 mg PO Q6 PRN PRN Reason: Fever >100.4 F Last Admin: 10/10/16 00:04 Dose: 650 mg Acetaminophen (Tylenol 325mg Tab) 650 mg PO Q4 PRN PRN Reason: Fever >100.4 F Atorvastatin Calcium (Lipitor) 40 mg PO DAILY [facility] Last Admin: 10/12/16 08:31 Dose: 40 mg Diphenhydramine HCl (Benadryl) 25 mg PO Q6 PRN PRN Reason: Itching / Pruritus Stop: 10/13/16 22:04 Last Admin: 10/12/16 11:00 Dose: 25 mg Docusate Sodium (Colace) 100 mg PO BID [facility] Last Admin: 10/12/16 16:49 Dose: 100 mg Enoxaparin Sodium (Lovenox) 80 mg SC Q12 [facility] PRN Reason: Protocol Last Admin: 10/12/16 08:30 Dose: 80 mg Hydromorphone HCl (Dilaudid) 2 mg PO Q4 PRN PRN Reason: Pain, moderate (4-7) Hydromorphone HCl (Dilaudid) 4 mg PO Q4 PRN PRN Reason: Pain, severe (8-10) Last Admin: 10/12/16 16:56 Dose: 4 mg Meropenem 1 gm/ Sodium (Chloride) 100 mls @ 100 mls/hr IVPB Q12H [facility] Vancomycin HCl 1 gm/ Sodium (Chloride) 250 mls @ 166.667 mls/hr IVPB DAILY [facility] Insulin Human Lispro (Humalog) 0 units SC ACHS [facility] PRN Reason: Protocol Last Admin: 10/12/16 16:48 Dose: Not Given Metronidazole (Flagyl) 500 mg PO Q8 [facility] Last Admin: 10/12/16 16:52 Dose: 500 mg Pantoprazole Sodium (Protonix Ec Tab) 40 mg PO DAILY [facility] Last Admin: 10/12/16 08:30 Dose: 40 mg Pregabalin (Lyrica) 50 mg PO TID [facility] Last Admin: 10/12/16 16:47 Dose: 50 mg Rivaroxaban (Xarelto) 15 mg PO BIDWM [facility] PRN Reason: Protocol Last Admin: 10/09/16 16:25 Dose: 15 mg Saccharomyces Boulardii (Florastor) 250 mg PO BID [facility] Last Admin: 10/12/16 16:49 Dose: 250 mg Valsartan (Diovan) 160 mg PO DAILY [facility] Last Admin: 10/12/16 08:31 Dose: 160 mg - Labs Labs: 10/12/16 06:30 10/12/16 06:30 PT 10.6 SECONDS (9.6-11.2) 10/09/16 04:15 INR 1.02 (0.92-1.08) 10/09/16 04:15 APTT 26.0 SECONDS (23.3-32.5) 10/09/16 04:15
[2016-10-13] MEDS: Meropenem 1 GM in Sodium Chloride 0.9% 100 ML IVPB SCH (06:23)
[2016-10-13 07:28] LABS: ALB/GLOB RATIO 1.1 (1.0-2.1); ALKALINE PHOSPHATASE 69 U/L (38-126); ALT/SGPT 23 U/L (9-52); AST/SGOT 27 U/L (14-36); BILIRUBIN,TOTAL 0.4 mg/dl (0.2-1.3); BLOOD UREA NITROGEN 12 mg/dl (7-17); CALCIUM 9.2 mg/dL (8.4-10.2); CARBON DIOXIDE 24 mmol/L (22-30); CHLORIDE 101 mmol/L (98-107); GFR AFRICAN-AMERICAN > 60; GLUCOSE,RANDOM 128 mg/dL (65-105); POTASSIUM 4.3 MMOL/L (3.6-5.0); SODIUM 138 mmol/l (132-148)
[2016-10-13 07:46] LABS: HEMATOCRIT 31.3 % (34.0-47.0); MEAN CELL VOLUME 85.2 fl (81.0-99.0); MEAN CORPUSCULAR HEMOGLOBIN 28.1 pg (27.0-31.0); RED CELL DISTRIBUTION WIDTH 13.9 % (11.5-14.5); WHITE BLOOD COUNT 8.1 K/uL (4.8-10.8)
[2016-10-13] MEDS: Insulin Lispro (humaLOG) 100 Units/ml Inj SC SCH ×3 (08:30→17:00)
[2016-10-13] MEDS: Pantoprazole 40 mg EC Tab PO SCH (08:30)
[2016-10-13] MEDS: Saccharomyces Boulardi 250 mg Cap PO SCH ×2 (08:31→17:00)
--- NOTE | 2016-10-13 08:42 | CP.PCM.PN ---
Subjective - Date & Time of Evaluation Date of Evaluation: 10/13/16 Time of Evaluation: 08:15 - Subjective Subjective: Patient tolerated the change to regimen well. Dilaudid PO 4mg is able to remedy her pain. Lyrica was started, but she hasn't felt significant improvement yet, though it didn't cause significant side effects. She still cannot ambulate. Objective - Vital Signs/Intake and Output Vital Signs (last 24 hours): Temp Pulse Resp BP Pulse Ox 97.9 F 86 18 107/68 95 10/13/16 07:33 10/13/16 07:33 10/13/16 07:33 10/13/16 07:33 10/13/16 07:33 - Medications Medications: Current Medications Acetaminophen (Tylenol 325mg Tab) 650 mg PO Q6 PRN PRN Reason: Pain, Mild (1-3) Acetaminophen (Tylenol 325mg Tab) 650 mg PO Q4 PRN PRN Reason: Fever >100.4 F Atorvastatin Calcium (Lipitor) 40 mg PO DAILY [facility] Last Admin: 10/13/16 08:31 Dose: 40 mg Diphenhydramine HCl (Benadryl) 25 mg PO Q6 PRN PRN Reason: Itching / Pruritus Stop: 10/13/16 22:04 Last Admin: 10/12/16 11:00 Dose: 25 mg Docusate Sodium (Colace) 100 mg PO BID [facility] Last Admin: 10/13/16 08:31 Dose: 100 mg Hydromorphone HCl (Dilaudid) 2 mg PO Q4 PRN PRN Reason: Pain, moderate (4-7) Hydromorphone HCl (Dilaudid) 4 mg PO Q4 PRN PRN Reason: Pain, severe (8-10) Last Admin: 10/13/16 08:35 Dose: 4 mg Meropenem 1 gm/ Sodium (Chloride) 100 mls @ 100 mls/hr IVPB Q12H [facility] Last Admin: 10/13/16 06:23 Dose: 100 mls/hr Vancomycin HCl 1 gm/ Sodium (Chloride) 250 mls @ 166.667 mls/hr IVPB DAILY [facility] Last Admin: 10/13/16 08:32 Dose: 166.667 mls/hr Insulin Human Lispro (Humalog) 0 units SC ACHS [facility] PRN Reason: Protocol Last Admin: 10/13/16 08:30 Dose: Not Given Metronidazole (Flagyl) 500 mg PO Q8 [facility] Last Admin: 10/13/16 08:31 Dose: 500 mg Pantoprazole Sodium (Protonix Ec Tab) 40 mg PO DAILY [facility] Last Admin: 10/13/16 08:30 Dose: 40 mg Pregabalin (Lyrica) 75 mg PO Q8 [facility] Rivaroxaban (Xarelto) 15 mg PO BIDWM [facility] PRN Reason: Protocol Last Admin: 10/09/16 16:25 Dose: 15 mg Saccharomyces Boulardii (Florastor) 250 mg PO BID [facility] Last Admin: 10/13/16 08:31 Dose: 250 mg Valsartan (Diovan) 160 mg PO DAILY [facility] Last Admin: 10/13/16 08:31 Dose: 160 mg - Labs Labs: 10/13/16 07:37 10/13/16 06:20 PT 10.6 SECONDS (9.6-11.2) 10/09/16 04:15 INR 1.02 (0.92-1.08) 10/09/16 04:15 APTT 26.0 SECONDS (23.3-32.5) 10/09/16 04:15 - Extremities Exam Additional comments: No gross abnormalities such as edema, erythema, color/temperature changes. TTP in both medial and lateral aspects of anterior bass and ankle. Assessment and Plan (1) Status post revision of total knee replacement Assessment & Plan: 61 yo woman w/ right lower leg pain. RLE CRPS is in the differential diagnoses , although the patient doesn't exhibit classic signs/symptoms. Lyrica has been started and will be titrated to effect and as tolerated. Patient is also on full anticoagulation for PE, sympathetic block can only be done if patient can be cleared to stop AC for one day. - continue Dilaudid PO PRN - increase Lyrica to 75mg q8h, can change to 100mg q8h eventually - neuro consult to assess possible CRPS - patient would need clearance to be off AC for sympathetic block, would consider early next week - f/u ortho/ID recommendations Status: Acute
--- NOTE | 2016-10-13 10:36 | CP.PCM.PN ---
Subjective - Date & Time of Evaluation Date of Evaluation: 10/13/16 Time of Evaluation: 09:30 - Subjective Subjective: NO CHEST PAIN OR SOB Objective - Vital Signs/Intake and Output Vital Signs (last 24 hours): Temp Pulse Resp BP Pulse Ox 97.9 F 86 18 107/68 95 10/13/16 07:33 10/13/16 07:33 10/13/16 07:33 10/13/16 07:33 10/13/16 07:33 - Medications Medications: Current Medications Acetaminophen (Tylenol 325mg Tab) 650 mg PO Q6 PRN PRN Reason: Pain, Mild (1-3) Acetaminophen (Tylenol 325mg Tab) 650 mg PO Q4 PRN PRN Reason: Fever >100.4 F Atorvastatin Calcium (Lipitor) 40 mg PO DAILY [facility] Last Admin: 10/13/16 08:31 Dose: 40 mg Diphenhydramine HCl (Benadryl) 25 mg PO Q6 PRN PRN Reason: Itching / Pruritus Stop: 10/13/16 22:04 Last Admin: 10/12/16 11:00 Dose: 25 mg Docusate Sodium (Colace) 100 mg PO BID [facility] Last Admin: 10/13/16 08:31 Dose: 100 mg Hydromorphone HCl (Dilaudid) 2 mg PO Q4 PRN PRN Reason: Pain, moderate (4-7) Hydromorphone HCl (Dilaudid) 4 mg PO Q4 PRN PRN Reason: Pain, severe (8-10) Last Admin: 10/13/16 08:35 Dose: 4 mg Meropenem 1 gm/ Sodium (Chloride) 100 mls @ 100 mls/hr IVPB Q12H [facility] Last Admin: 10/13/16 06:23 Dose: 100 mls/hr Vancomycin HCl 1 gm/ Sodium (Chloride) 250 mls @ 166.667 mls/hr IVPB DAILY [facility] Last Admin: 10/13/16 08:32 Dose: 166.667 mls/hr Insulin Human Lispro (Humalog) 0 units SC ACHS [facility] PRN Reason: Protocol Last Admin: 10/13/16 08:30 Dose: Not Given Metronidazole (Flagyl) 500 mg PO Q8 [facility] Last Admin: 10/13/16 08:31 Dose: 500 mg Pantoprazole Sodium (Protonix Ec Tab) 40 mg PO DAILY [facility] Last Admin: 10/13/16 08:30 Dose: 40 mg Pregabalin (Lyrica) 75 mg PO Q8 [facility] Last Admin: 10/13/16 10:29 Dose: Not Given Rivaroxaban (Xarelto) 15 mg PO BIDWM [facility] PRN Reason: Protocol Last Admin: 10/13/16 10:02 Dose: 15 mg Saccharomyces Boulardii (Florastor) 250 mg PO BID [facility] Last Admin: 10/13/16 08:31 Dose: 250 mg Valsartan (Diovan) 160 mg PO DAILY [facility] Last Admin: 10/13/16 08:31 Dose: 160 mg - Labs Labs: 10/13/16 07:37 10/13/16 06:20 PT 10.6 SECONDS (9.6-11.2) 10/09/16 04:15 INR 1.02 (0.92-1.08) 10/09/16 04:15 APTT 26.0 SECONDS (23.3-32.5) 10/09/16 04:15 - Respiratory Exam Respiratory Exam: Clear to Ausculation Bilateral - Cardiovascular Exam Cardiovascular Exam: REGULAR RHYTHM, +S1, +S2 Assessment and Plan - Assessment and Plan (Free Text) Assessment: HYPERTENSION HYPERLIPIDEMIA CELLULITIS Plan: CONTINUE IV ANTIBIOTICS, VALSARTAN AND ATORVASTATIN FOR PICC LINE AND USP IV ANTIBIOTIC TREATMENT
[2016-10-13] MEDS ORDERED: Lidocaine 1% Inj (20ml) ONE (14:11)
--- NOTE | 2016-10-13 14:20 | PCM.SURG1 ---
Surgeon's Initial Post Op Note - Surgeon's Notes Surgeon: Andrew Yanez MD Tank Truck Operator: NONE Type of Anesthesia: Local Pre-Operative Diagnosis: Infection requiring fdc IV antibiotics Operative Findings: Patent right basilic vein. Post-Operative Diagnosis: Infection requiring terminologist IV antibiotics Operation Performed: Single lumen picc placement right basilic vein, 35 cm. Tip in SVC. Specimen/Specimens Removed: none Estimated Blood Loss: EBL {In ML}: 2 Blood Products Given: N/A Drains Used: No Drains Post-Op Condition: Fair Date of Surgery/Procedure: 10/13/16 Time of Surgery/Procedure: 14:30
--- NOTE | 2016-10-13 14:50 | CP.PCM.PN ---
Subjective - Date & Time of Evaluation Date of Evaluation: 10/13/16 Time of Evaluation: 14:45 - Subjective Subjective: Has a PICC line placed today for halfway antibiotic therapy. She has been placed back on rivaroxaban 15MG BID and will be going to [facility]. She is being followed by pain management and may require a nerve block in the future, after the antibiotic therapy is completed. At that time the rivaroxaban can be safely withheld to allow for the nerve block. Objective - Vital Signs/Intake and Output Vital Signs (last 24 hours): Temp Pulse Resp BP Pulse Ox 99.2 F 72 18 157/72 H 97 10/13/16 14:35 10/13/16 14:35 10/13/16 14:35 10/13/16 14:35 10/13/16 14:35 - Medications Medications: Current Medications Acetaminophen (Tylenol 325mg Tab) 650 mg PO Q6 PRN PRN Reason: Pain, Mild (1-3) Acetaminophen (Tylenol 325mg Tab) 650 mg PO Q4 PRN PRN Reason: Fever >100.4 F Atorvastatin Calcium (Lipitor) 40 mg PO DAILY [facility] Last Admin: 10/13/16 08:31 Dose: 40 mg Diphenhydramine HCl (Benadryl) 25 mg PO Q6 PRN PRN Reason: Itching / Pruritus Stop: 10/13/16 22:04 Last Admin: 10/12/16 11:00 Dose: 25 mg Docusate Sodium (Colace) 100 mg PO BID [facility] Last Admin: 10/13/16 08:31 Dose: 100 mg Hydromorphone HCl (Dilaudid) 2 mg PO Q4 PRN PRN Reason: Pain, moderate (4-7) Hydromorphone HCl (Dilaudid) 4 mg PO Q4 PRN PRN Reason: Pain, severe (8-10) Last Admin: 10/13/16 08:35 Dose: 4 mg Meropenem 1 gm/ Sodium (Chloride) 100 mls @ 100 mls/hr IVPB Q12H [facility] Last Admin: 10/13/16 06:23 Dose: 100 mls/hr Vancomycin HCl 1 gm/ Sodium (Chloride) 250 mls @ 166.667 mls/hr IVPB DAILY [facility] Last Admin: 10/13/16 08:32 Dose: 166.667 mls/hr Insulin Human Lispro (Humalog) 0 units SC ACHS [facility] PRN Reason: Protocol Last Admin: 10/13/16 12:19 Dose: 2 unit Metronidazole (Flagyl) 500 mg PO Q8 [facility] Last Admin: 10/13/16 08:31 Dose: 500 mg Pantoprazole Sodium (Protonix Ec Tab) 40 mg PO DAILY [facility] Last Admin: 10/13/16 08:30 Dose: 40 mg Pregabalin (Lyrica) 75 mg PO Q8 [facility] Last Admin: 10/13/16 10:29 Dose: Not Given Rivaroxaban (Xarelto) 15 mg PO BIDWM [facility] PRN Reason: Protocol Last Admin: 10/13/16 10:02 Dose: 15 mg Saccharomyces Boulardii (Florastor) 250 mg PO BID [facility] Last Admin: 10/13/16 08:31 Dose: 250 mg Valsartan (Diovan) 160 mg PO DAILY [facility] Last Admin: 10/13/16 08:31 Dose: 160 mg - Labs Labs: 10/13/16 07:37 10/13/16 06:20 PT 10.6 SECONDS (9.6-11.2) 10/09/16 04:15 INR 1.02 (0.92-1.08) 10/09/16 04:15 APTT 26.0 SECONDS (23.3-32.5) 10/09/16 04:15 Assessment and Plan (1) Cellulitis Status: Acute (2) Pulmonary embolism Status: Acute (3) Status post revision of total knee replacement Status: Acute (4) Microscopic hematuria Status: Acute
--- NOTE | 2016-10-13 15:14 | VASCULAR ---
PROCEDURE: Date of procedure: 10/13/2016 Procedure: 1. Placement of a right arm PICC with ultrasound and fluoroscopic guidance, CPT 66745 2. PICC tip confirmation with spot radiograph and is in the superior vena cava Medications: 1 percent lidocaine Total Fluoro time: 3.5 seconds Radiation: 0.38 mGy EBL: 2 cc HISTORY: Infection requiring long-term IV antibiotics TECHNIQUE: Following informed consent and procedure time-out, the patient was placed supine on the interventional table and the right arm prepped and draped in the usual sterile fashion. Ultrasound showed a patent and compressible right basilic vein. After the skin was anesthetized with lidocaine, the basilic vein was accessed with micro micropuncture technique using ultrasound guidance. A guidewire was then advanced under fluoroscopic guidance into the superior vena cava. An image documenting ultrasound guidance for vascular access was permanently saved. The length of the single-lumen 4 Vincentian PICC was trimmed to 35 centimeters and advanced through a peel-away sheath. The PICC was position with tip of PICC confirm a spot radiograph the superior vena cava. The PICC was secured to the patient's skin. The PICC was flushed. A biopatch and sterile dressing was applied. IMPRESSION: Placement of a single-lumen 4 Vincentian PICC trimmed to 35 centimeters via right basilic vein. The tip of the PICC is confirmed with spot radiograph and is in the superior vena cava.
[2016-10-13 16:03] VITALS: BP 101/64; PULSE 90; RESP 20; TEMP 97.6; O2SAT 98
--- NOTE | 2016-10-13 16:14 | CP.PCM.PN ---
Subjective - Date & Time of Evaluation Date of Evaluation: 10/13/16 Time of Evaluation: 16:10 - Subjective Subjective: patient seen examined bedside +picc today pain is well contrlled today for DC once auth vitals stable nad xarelto restarted Objective - Vital Signs/Intake and Output Vital Signs (last 24 hours): Temp Pulse Resp BP Pulse Ox 97.6 F 90 20 101/64 98 10/13/16 16:02 10/13/16 16:02 10/13/16 16:02 10/13/16 16:02 10/13/16 16:02 - Medications Medications: Current Medications Acetaminophen (Tylenol 325mg Tab) 650 mg PO Q6 PRN PRN Reason: Pain, Mild (1-3) Acetaminophen (Tylenol 325mg Tab) 650 mg PO Q4 PRN PRN Reason: Fever >100.4 F Atorvastatin Calcium (Lipitor) 40 mg PO DAILY [facility] Last Admin: 10/13/16 08:31 Dose: 40 mg Diphenhydramine HCl (Benadryl) 25 mg PO Q6 PRN PRN Reason: Itching / Pruritus Stop: 10/13/16 22:04 Last Admin: 10/12/16 11:00 Dose: 25 mg Docusate Sodium (Colace) 100 mg PO BID [facility] Last Admin: 10/13/16 08:31 Dose: 100 mg Hydromorphone HCl (Dilaudid) 2 mg PO Q4 PRN PRN Reason: Pain, moderate (4-7) Hydromorphone HCl (Dilaudid) 4 mg PO Q4 PRN PRN Reason: Pain, severe (8-10) Last Admin: 10/13/16 14:53 Dose: 4 mg Meropenem 1 gm/ Sodium (Chloride) 100 mls @ 100 mls/hr IVPB Q12H [facility] Last Admin: 10/13/16 06:23 Dose: 100 mls/hr Vancomycin HCl 1 gm/ Sodium (Chloride) 250 mls @ 166.667 mls/hr IVPB DAILY [facility] Last Admin: 10/13/16 08:32 Dose: 166.667 mls/hr Insulin Human Lispro (Humalog) 0 units SC ACHS [facility] PRN Reason: Protocol Last Admin: 10/13/16 12:19 Dose: 2 unit Metronidazole (Flagyl) 500 mg PO Q8 [facility] Last Admin: 10/13/16 08:31 Dose: 500 mg Pantoprazole Sodium (Protonix Ec Tab) 40 mg PO DAILY [facility] Last Admin: 10/13/16 08:30 Dose: 40 mg Pregabalin (Lyrica) 75 mg PO Q8 [facility] Last Admin: 10/13/16 10:29 Dose: Not Given Rivaroxaban (Xarelto) 15 mg PO BIDWM [facility] PRN Reason: Protocol Last Admin: 10/13/16 10:02 Dose: 15 mg Saccharomyces Boulardii (Florastor) 250 mg PO BID [facility] Last Admin: 10/13/16 08:31 Dose: 250 mg Valsartan (Diovan) 160 mg PO DAILY [facility] Last Admin: 10/13/16 08:31 Dose: 160 mg - Labs Labs: 10/13/16 07:37 10/13/16 06:20 PT 10.6 SECONDS (9.6-11.2) 10/09/16 04:15 INR 1.02 (0.92-1.08) 10/09/16 04:15 APTT 26.0 SECONDS (23.3-32.5) 10/09/16 04:15 - Constitutional Appears: Non-toxic, No Acute Distress - Head Exam Head Exam: ATRAUMATIC, NORMOCEPHALIC - Eye Exam Eye Exam: EOMI, Normal appearance, PERRL - ENT Exam ENT Exam: Mucous Membranes Moist, Normal Oropharynx - Respiratory Exam Respiratory Exam: Clear to Ausculation Bilateral, NORMAL BREATHING PATTERN - Cardiovascular Exam Cardiovascular Exam: RRR, +S1, +S2 - GI/Abdominal Exam GI & Abdominal Exam: Soft, Normal Bowel Sounds. absent: Tenderness, Mass, Organomegaly - Extremities Exam Extremities Exam: Normal Capillary Refill. absent: Pedal Edema - Back Exam Back Exam: absent: CVA tenderness (L), CVA tenderness (R) - Neurological Exam Neurological Exam: Alert, Awake - Psychiatric Exam Psychiatric exam: Normal Affect, Normal Mood - Skin Skin Exam: Dry, Warm Assessment and Plan - Assessment and Plan (Free Text) Plan: 61 year old female who was admitted on 10/09/16 for right knee pain/swelling/ warmth. She has a history of revision of Right Knee TKR roughly 3 weeks prior to admission by Orthopedics Dr. Guillen. She had developed some redness/ drainage from the right knee for which she finished course of Levaquin on . Then night before admission she could not bear weight on the Right Leg and redness and edema had worsened and therefore she was admitted for further evaluation and treatment. 1). Right Knee Pain S/P Revision Surgery with Fever 6 weeks IV Antibiotics with PICC on discharge. Discussed with Dr. Gordon CHANGE ANTIBIOTICS TO: Meropenem 1 gm IV Q12H Flagyl 500 mg PO q8h Vancomycin 1 gm IV Q24 Afebrile Blood Culture 10/09/16 is negative to date Urine Culture 10/09/16 shows NO growth ID Dr. Cecelia Gordon appreciated and followed Plastic Surgery Dr. Singletary no surgery at this time. Treat PE and then debridement later. CT Right LE 10/08/16 showed peripherally enhancing fluid collection about the joint space which appeared to be a seroma PICC Line order has been placed 10/11/16 in anticipation for extended IV antibiotic administration Pulmonology Dr. Sweeney Cardiology Dr. Weir Orthopedics Dr. Guillen 2). Hx PE Will resume Xarelto F/U Hypercoagulable Workup ordered by Dr. Sweeney: Antiphospholipid Ab, Antithrombin III, Factor V Leiden, Protein C, Protein S, Prothrombin Gene 3). Hx DM 2 Lispro ISS Controlled 4). Hx HTN Valsartan 160 mg PO 1x/day Controlled 5). Hx HLD Lipitor 40 mg PO 1x/day
--- NOTE | 2016-10-13 17:33 | CP.PCM.DIS ---
Provider - Provider Date of Admission: 10/09/16 02:32 Attending physician: Collins Bradford MD Time Spent in preparation of Discharge (in minutes): 30 Diagnosis - Discharge Diagnosis (1) Cellulitis Status: Acute Priority: High (2) Infection of knee Status: Acute (3) Pulmonary embolism Status: Acute Priority: High (4) Status post revision of total knee replacement Status: Acute Priority: High Hospital Course - Lab Results Lab Results: Micro Results 10/09/16 19:00 Blood-Venous Blood Culture - Preliminary NO GROWTH AFTER 3 DAYS 10/09/16 18:30 Blood-Venous Blood Culture - Preliminary NO GROWTH AFTER 3 DAYS 10/09/16 22:51 Urine,Clean Catch Urine Culture - Final No Growth (<1,000 CFU/ML) Most Recent Lab Values WBC 8.1 K/uL (4.8-10.8) 10/13/16 07:37 RBC 3.67 Mil/uL (3.80-5.20) L 10/13/16 07:37 Hgb 10.3 g/dL (12.0-16.0) L 10/13/16 07:37 Hct 31.3 % (34.0-47.0) L 10/13/16 07:37 MCV 85.2 fl (81.0-99.0) 10/13/16 07:37 MCH 28.1 pg (27.0-31.0) 10/13/16 07:37 MCHC 33.0 g/dL (33.0-37.0) 10/13/16 07:37 RDW 13.9 % (11.5-14.5) 10/13/16 07:37 Plt Count 242 K/uL (130-400) 10/13/16 07:37 MPV 8.3 fl (7.2-11.7) 10/12/16 06:30 Neut % (Auto) 73.8 % (50.0-75.0) 10/12/16 06:30 Lymph % (Auto) 15.4 % (20.0-40.0) L 10/12/16 06:30 Nicollet % (Auto) 7.6 % (0.0-10.0) 10/12/16 06:30 Eos % (Auto) 2.7 % (0.0-4.0) 10/12/16 06:30 Baso % (Auto) 0.5 % (0.0-2.0) 10/12/16 06:30 Neut # 5.3 K/uL (1.8-7.0) 10/12/16 06:30 Lymph # 1.1 K/uL (1.0-4.3) 10/12/16 06:30 Nicollet # 0.5 K/uL (0.0-0.8) 10/12/16 06:30 Eos # 0.2 K/uL (0.0-0.7) 10/12/16 06:30 Baso # 0.0 K/uL (0.0-0.2) 10/12/16 06:30 Neutrophils % (Manual) 81 % (42-75) H 10/09/16 04:00 Band Neutrophils % 1 % (0-2) 10/09/16 04:00 Lymphocytes % (Manual) 11 % (20-50) L 10/09/16 04:00 Monocytes % (Manual) 6 % (0-10) 10/09/16 04:00 Eosinophils % (Manual) 1 % (0-7) 10/09/16 04:00 Platelet Estimate Normal (NORMAL) 10/09/16 04:00 Plt Clumps, EDTA Present 10/09/16 04:00 Hypochromasia (manual) Slight 10/09/16 04:00 ESR 88 mm/hr (0-30) H 10/10/16 08:19 PT 10.6 SECONDS (9.6-11.2) 10/09/16 04:15 INR 1.02 (0.92-1.08) 10/09/16 04:15 APTT 26.0 SECONDS (23.3-32.5) 10/09/16 04:15 Sodium 138 mmol/l (132-148) 10/13/16 06:20 Potassium 4.3 MMOL/L (3.6-5.0) 10/13/16 06:20 Chloride 101 mmol/L (98-107) 10/13/16 06:20 Carbon Dioxide 24 mmol/L (22-30) 10/13/16 06:20 Anion Gap 17 (10-20) 10/13/16 06:20 BUN 12 mg/dl (7-17) 10/13/16 06:20 Creatinine 0.6 mg/dL (0.7-1.2) L 10/13/16 06:20 Est GFR ( Amer) > 60 10/13/16 06:20 Est GFR (Non-Af Amer) > 60 10/13/16 06:20 POC Glucose (mg/dL) 224 mg/dL (65-110) H 10/13/16 15:15 Random Glucose 128 mg/dL (65-105) H 10/13/16 06:20 Lactic Acid 1.1 MMOL/L (0.7-2.1) 10/10/16 06:15 Calcium 9.2 mg/dL (8.4-10.2) 10/13/16 06:20 Total Bilirubin 0.4 mg/dl (0.2-1.3) 10/13/16 06:20 AST 27 U/L (14-36) 10/13/16 06:20 ALT 23 U/L (9-52) 10/13/16 06:20 Alkaline Phosphatase 69 U/L (38-126) 10/13/16 06:20 Total Creatine Kinase 23 U/L (30-135) L 10/09/16 04:00 Total Protein 7.0 G/DL (6.3-8.2) 10/13/16 06:20 Albumin 3.7 g/dL (3.5-5.0) 10/13/16 06:20 Globulin 3.3 gm/dL (2.2-3.9) 10/13/16 06:20 Albumin/Globulin Ratio 1.1 (1.0-2.1) 10/13/16 06:20 Procalcitonin 0.19 NG/ML (0.19-0.49) 10/10/16 07:40 Urine Color Yellow (YELLOW) 10/09/16 10:16 Urine Clarity Slighty-cloudy (Clear) 10/09/16 10:16 Urine pH 6.0 (5.0-8.0) 10/09/16 10:16 Ur Specific Harlan 1.043 (1.003-1.030) H 10/09/16 10:16 Urine Protein Negative mg/dL (NEGATIVE) 10/09/16 10:16 Urine Glucose (UA) >=500 mg/dL (Normal) 10/09/16 10:16 Urine Ketones Negative mg/dL (NEGATIVE) 10/09/16 10:16 Urine Blood Small (NEGATIVE) 10/09/16 10:16 Urine Nitrate Negative (NEGATIVE) 10/09/16 10:16 Urine Bilirubin Negative (NEGATIVE) 10/09/16 10:16 Urine Urobilinogen 0.2-1.0 mg/dL (0.2-1.0) 10/09/16 10:16 Ur Leukocyte Esterase Trace Noy/uL (Negative) 10/09/16 10:16 Urine RBC (Auto) 95 /hpf (0-3) H 10/09/16 10:16 Urine Microscopic WBC 3 /hpf (0-5) 10/09/16 10:16 Ur Squamous Epith Cells 3 /hpf (0-5) 10/09/16 10:16 Urine Bacteria Rare (<OCC) 10/09/16 10:16 Urine Yeast (Budding) Few /hpf (NEGATIVE) H 10/09/16 10:16 Vancomycin Trough 19.4 ug/mL (5.0-10.0) H 10/12/16 10:45 Random Vancomycin 31.5 ug/mL 10/12/16 19:36 - Hospital Course Hospital Course: 61 year old female who was admitted on 10/09/16 for right knee pain/swelling/ warmth. She has a history of revision of Right Knee TKR roughly 3 weeks prior to admission by Orthopedics Dr. Guillen. She had developed some redness/ drainage from the right knee for which she finished course of Levaquin on . Then night before admission she could not bear weight on the Right Leg and redness and edema had worsened and therefore she was admitted for further evaluation and treatment. 1). Right Knee Pain S/P Revision Surgery with Fever 6 weeks IV Antibiotics with PICC on discharge. Discussed with Dr. Gordon CHANGE ANTIBIOTICS TO: Meropenem 1 gm IV Q12H Flagyl 500 mg PO q8h Vancomycin 1 gm IV Q24 Afebrile Blood Culture 10/09/16 is negative to date Urine Culture 10/09/16 shows NO growth ID Dr. Cecelia Gordon appreciated and followed Plastic Surgery Dr. Singletary no surgery at this time. Treat PE and then debridement later with wound vac plan CT Right LE 10/08/16 showed peripherally enhancing fluid collection about the joint space which appeared to be a seroma PICC Line order has been placed 10/11/16 in anticipation for extended IV antibiotic administration Pulmonology Dr. Sweeney Cardiology Dr. Weir Orthopedics Dr. Guillen 2). Hx PE Will resume Xarelto F/U Hypercoagulable Workup ordered by Dr. Sweeney: Antiphospholipid Ab, Antithrombin III, Factor V Leiden, Protein C, Protein S, Prothrombin Gene 3). Hx DM 2 Lispro ISS Controlled 4). Hx HTN Valsartan 160 mg PO 1x/day Controlled 5). Hx HLD Lipitor 40 mg PO 1x/day Discharge Exam - Head Exam Head Exam: ATRAUMATIC, NORMOCEPHALIC - Eye Exam Eye Exam: EOMI, Normal appearance, PERRL Pupil Exam: NORMAL ACCOMODATION - ENT Exam ENT Exam: Mucous Membranes Moist, Normal Oropharynx - Neck Exam Neck exam: Full Rom, Normal Inspection - Respiratory Exam Respiratory Exam: Clear to PA & Lateral, NORMAL BREATHING PATTERN, UNREMARKABLE - Cardiovascular Exam Cardiovascular Exam: RRR, +S1, +S2. absent: Gallop, Rubs - GI/Abdominal Exam GI & Abdominal Exam: Normal Bowel Sounds, Soft. absent: Mass, Organomegaly, Tenderness - Extremities Exam Extremities exam: normal capillary refill, pedal pulses present - Back Exam Back exam: absent: CVA tenderness (L), CVA tenderness (R) - Neurological Exam Neurological exam: Alert, Oriented x3 - Psychiatric Exam Psychiatric exam: Normal Affect, Normal Mood - Skin Skin Exam: Dry, Warm Discharge Plan - Discharge Medications Prescriptions: Meropenem [Merrem IV] 1 gm IV Q12 #84 pds Vancomycin 1 GM [Vancomycin 1GM in Normal Saline Addvantage] 1 gm IV DAILY #42 bag - Follow Up Plan Condition: FAIR Disposition: REHAB FACILITY/REHAB UNIT Instructions: Cellulitis (DC)
[2016-10-14 04:30] LABS: PHOSPHATIDYLSERINE AB IGM <25 U/mL (<25)
[2016-10-14 21:06] LABS: CARDIOLIPIN AB (IGA) <11 APL (<=11)
[2016-10-15 06:51] LABS: B2 GLYCOPROTEIN I AB(IGA) <9 SAU (<=20); B2 GLYCOPROTEIN I AB(IGG) <9 SGU (<=20); B2 GLYCOPROTEIN I AB(IGM) <9 SMU (<=20); PHOSPHATIDYLSERINE AB IGA <20 U/mL (<20)
== END 2016-10-13 18:28 | DRG 560 ==
LOC: H.ER 22:12 → H.ERHOLD 10-09 02:32 → H.MEDSURG1 10-09 05:21
PROVIDERS: ADMIT Internal Medicine; ATTEND Internal Medicine
PROC: 02HV33Z Insertion of Infusion Device into Superior Vena Cava, Percutaneous Approach (ICD-10-PCS; principal; 2016-10-11)
PROC: B518ZZA Fluoroscopy of Superior Vena Cava, Guidance (ICD-10-PCS; 2016-10-11)
PROC: 3E04329 Introduction of Other Anti-infective into Central Vein, Percutaneous Approach (ICD-10-PCS; 2016-10-11)
DX: T84.53XA Infection and inflammatory reaction due to internal right knee prosthesis, initial encounter (principal); L03.115 Cellulitis of right lower limb; I27.82 Chronic pulmonary embolism; E11.22 Type 2 diabetes mellitus with diabetic chronic kidney disease; N39.0 Urinary tract infection, site not specified; E78.5 Hyperlipidemia, unspecified; I12.9 Hypertensive chronic kidney disease with stage 1 through stage 4 chronic kidney disease, or unspecified chronic kidney disease; Z79.01 Long term (current) use of anticoagulants; R31.29 Other microscopic hematuria; K21.9 Gastro-esophageal reflux disease without esophagitis; N18.9 Chronic kidney disease, unspecified; E78.00 Pure hypercholesterolemia, unspecified; Z96.651 Presence of right artificial knee joint; Z88.6 Allergy status to analgesic agent; Z79.82 Long term (current) use of aspirin; Z87.442 Personal history of urinary calculi

== ENCOUNTER 2016-12-07 15:30 | Emergency (ER) | payer MEDICARE ==
[2016-12-07 15:30] VITALS: BMI 30.6
--- NOTE | 2016-12-07 16:44 | CT ---
PROCEDURE: CT HEAD WITHOUT CONTRAST. HISTORY: seizure COMPARISON: 09/07/2016 TECHNIQUE: Axial computed tomography images were obtained through the head/brain without intravenous contrast. Radiation dose: Total exam DLP = 82.63 mGy-cm. This CT exam was performed using one or more of the following dose reduction techniques: Automated exposure control, adjustment of the mA and/or kV according to patient size, and/or use of iterative reconstruction technique. FINDINGS: HEMORRHAGE: No intracranial hemorrhage. BRAIN: No mass effect or edema. Small old bilateral basal ganglia lacunar infarcts versus dilated perivascular spaces. VENTRICLES: Unremarkable. No hydrocephalus. CALVARIUM: Unremarkable. PARANASAL SINUSES: Unremarkable as visualized. No significant inflammatory changes. MASTOID AIR CELLS: Unremarkable as visualized. No inflammatory changes. OTHER FINDINGS: None. IMPRESSION: No intracranial mass, hemorrhage or evidence of acute infarct. Questionable small old bilateral basal ganglia lacunar infarcts.
[2016-12-07 17:01] LABS: BASO # 0.1 K/uL (0.0-0.2); BASO % 0.7 % (0.0-2.0); EOS # 0.1 K/uL (0.0-0.7); HEMOGLOBIN 11.9 g/dL (12.0-16.0); LYMPH # 0.9 K/uL (1.0-4.3); MEAN CORPUSCULAR HEMOGLOBIN 26.8 pg (27.0-31.0); MEAN CORPUSCULAR HGB CONC 32.7 g/dL (33.0-37.0); MEAN PLATELET VOLUME 8.3 fl (7.2-11.7); MONO # 0.8 K/uL (0.0-0.8); MONO % 8.5 % (0.0-10.0); NEUT # 7.4 K/uL (1.8-7.0); NEUT % 79.8 % (50.0-75.0); NRBC % 0.1 % (0.0-0.0); RBC 4.44 Mil/uL (3.80-5.20); RED CELL DISTRIBUTION WIDTH 15.7 % (11.5-14.5); WHITE BLOOD COUNT 9.3 K/uL (4.8-10.8)
[2016-12-07 17:04] LABS: ALB/GLOB RATIO 1.2 (1.0-2.1); ALBUMIN 4.2 g/dL (3.5-5.0); ALT/SGPT 29 U/L (9-52); AST/SGOT 37 U/L (14-36); BLOOD UREA NITROGEN 15 mg/dl (7-17); CALCIUM 9.7 mg/dL (8.4-10.2); GFR AFRICAN-AMERICAN > 60; GFR NON-AFRICAN AMERICAN > 60
--- NOTE | 2016-12-07 18:27 | ED PDOC ---
HPI: Altered Mental Status Time Seen by Provider: 12/07/16 15:45 Chief Complaint (Nursing): Weakness/Neurological Deficit Chief Complaint (Provider): Tremulous Activity History Per: Patient History/Exam Limitations: None Additional Complaint(s): Octavia Dozier is a 61 y/o female, with a past medical history of Total Knee Replacement, Hypertension, Diabetes Mellitus, Hyperlipidemia, Psoriasis, and Pulmonary Embolism, presenting to the ED on 12/07/2016 for evaluation after having tremulous activity and involuntary movement at her custodial. She denies experiencing any syncope. Patient further denies fever, vomiting, diarrhea, or any pain at this time. Past Medical History Reviewed: Historical Data, Nursing Documentation, Vital Signs Vital Signs: Last Vital Signs Temp 99.9 F H 12/07/16 15:33 Pulse 99 H 12/07/16 15:33 Resp 16 12/07/16 15:33 BP 116/74 12/07/16 15:33 Pulse Ox 98 12/07/16 15:33 - Medical History PMH: Arthritis, Diabetes, HTN, Hypercholesterolemia, Hyperlipidemia, Kidney Stones, Pulmonary Embolism, Chronic Kidney Disease Denies: Depression - Surgical History Surgical History: Appendectomy, Hernia Repair, Tonsillectomy Denies: Pacemaker - Family History Family History: States: Unknown Family Hx - Living Arrangements Living Arrangements: Senior Living/Assist Lv - Social History Current smoker - smoking cessation education provided: No Alcohol: None Drugs: Denies - Immunization History Hx Tetanus Toxoid Vaccination: No Hx Influenza Vaccination: No Hx Pneumococcal Vaccination: No - Home Medications Home Medications: Ambulatory Orders Medication Instructions Recorded Metformin HCl 1,000 mg PO BID 01/31/12 Canagliflozin [Invokana] 300 mg PO QAM 02/03/16 Valsartan [Diovan] 160 mg PO DAILY 07/19/16 Acetaminophen [Tylenol 325mg tab] 650 mg PO Q4H PRN 09/21/16 Acetaminophen [Tylenol 325mg tab] 650 mg PO Q4H PRN 09/21/16 DiphenhydrAMINE [Benadryl] 25 mg PO Q6 PRN cap 10/13/16 Pantoprazole [Protonix EC Tab] 40 mg PO DAILY ect 10/13/16 Rivaroxaban [Xarelto] 15 mg PO BIDWM tab 10/13/16 Saccharomyces Boulardi [Florastor] 250 mg PO BID cap 10/13/16 metroNIDAZOLE [Flagyl] 500 mg PO Q8 tab 10/13/16 Aspirin [Ecotrin] 81 mg PO DAILY 12/07/16 Atorvastatin [Lipitor] 40 mg PO HS 12/07/16 Calcium Carbonate/Vitamin D3 1 tab PO BID 12/07/16 [Calcium 500-Vit D3 200 Tablet] Carbamide Peroxide [Debrox Ear 1 drop AU BID 12/07/16 Drops] Clotrimazole/Betamethasone 1 appl TOP BID 12/07/16 [Lotrisone] DULoxetine [Cymbalta] 30 mg PO HS 12/07/16 Diclofenac Sodium [Voltaren] 1 appl TOP BID 12/07/16 Docusate [Colace] 200 mg PO HS 12/07/16 Lidocaine Gel 4% 1 appl TOP BID 12/07/16 Mag Hydrox/Aluminum Hyd/Simeth 30 ml PO Q4H PRN 12/07/16 [Maalox Advanced Suspension] Magnesium Hydroxide [Milk Of 30 ml PO DAILY PRN 12/07/16 Magnesia] Multivitamin [Multi-Vitamin Daily] 1 tab PO DAILY 12/07/16 Ondansetron ODT [Zofran ODT] 4 mg SL Q6H PRN 12/07/16 Phenyleph/Pramoxin/Glycr/W.pet 1 appl MT DAILY PRN 12/07/16 [Preparation H Cream] Pregabalin [Lyrica] 100 mg PO Q8H 12/07/16 Zinc Oxide 1 appl TOP QSHIFT 12/07/16 traMADol [Ultram] 100 mg PO Q8H PRN 12/07/16 - Allergies Allergies/Adverse Reactions: Allergies Allergy/AdvReac Type Severity Reaction Status Date / Time codeine Allergy Severe HALLUCINATI Verified 12/07/16 15:32 ONS Review of Systems ROS Statement: Except As Marked, All Systems Reviewed And Found Negative Constitutional: Negative for: Fever Gastrointestinal: Negative for: Vomiting, Diarrhea Neurological: Positive for: Other ((+) tremulous activity ) Physical Exam - Reviewed Nursing Documentation Reviewed: Yes Vital Signs Reviewed: Yes - Physical Exam Appears: Positive for: Non-toxic, No Acute Distress Head Exam: Positive for: ATRAUMATIC, NORMOCEPHALIC Skin: Positive for: Normal Color. Negative for: Rash Eye Exam: Positive for: Normal appearance ENT: Positive for: Normal ENT Inspection Neck: Positive for: Normal, Painless ROM, Supple Cardiovascular/Chest: Positive for: Regular Rate, Rhythm. Negative for: Murmur Respiratory: Positive for: Normal Breath Sounds. Negative for: Respiratory Distress Gastrointestinal/Abdominal: Positive for: Normal Exam, Soft. Negative for: Tenderness Extremity: Positive for: Normal ROM (bandage on right knee s/p multiple knee surgery). Negative for: Deformity Neurologic/Psych: Positive for: Alert, Oriented (x3). Negative for: Motor/ Sensory Deficits - Laboratory Results Result Diagrams: 12/07/16 17:00 12/07/16 16:11 - ECG O2 Sat by Pulse Oximetry: 98 Medical Decision Making Medical Decision Makin:45 Initial Impression- 61 y/o female with tremulous activity Initial Plan- * CT Head * Tylenol 650 mg PO * Urine C&S * Urinalysis CT FINDINGS: HEMORRHAGE: No intracranial hemorrhage. BRAIN: No mass effect or edema. Mild age-appropriate atrophy. No evidence of acute infarct. VENTRICLES: Unremarkable. No hydrocephalus. CALVARIUM: Unremarkable. PARANASAL SINUSES: Unremarkable as visualized. No significant inflammatory changes. MASTOID AIR CELLS: Unremarkable as visualized. No inflammatory changes. OTHER FINDINGS: None. IMPRESSION: No intracranial mass, hemorrhage or evidence of acute infarct. 19:00 Patient signed out to Dr. Jarek MD. Pending Chest x-ray and Urine. 18:30 Case was consulted with Dr. Scott, neurology zipper ironer. Per his recommendation, he states this was unlikely a seizure given that the patient recalled her history of present illness. He further notes the patient can be discharged if her urine shows no acute findings. Documented by Chanel Busch, acting as a scribe for Nyla Howard MD. All medical record entries made by the Scribe were at my direction and personally dictated by me. I have reviewed the chart and agree that the record accurately reflects my personal performance of the history, physical exam, medical decision making, and the department course for this patient. I have also personally directed, reviewed, and agree with the discharge instructions and disposition. Disposition - Disposition Disposition: Transfer of Care Disposition Time: 19:00 Forms: [employer] (Urdu) Patient Signed Over To: Binta Tilley
--- NOTE | 2016-12-07 19:29 | ED PDOC ---
- Laboratory Results Result Diagrams: 12/07/16 17:00 12/07/16 16:11 - ECG O2 Sat by Pulse Oximetry: 98 - Progress Re-evaluation Time: 20:40 Condition: Re-examined, Improved Medical Decision Making Medical Decision Makin:00 Patient signed out to me by Dr. Anita MD. Pending CXR and Urine FINDINGS: Tubes and catheters: There is a right PICC line with the tip at the origin of the superior vena cava Heart, mediastinum and tresa: Heart size is normal. Mediastinal and hilar contours are unremarkable. Right paratracheal opacity is most likely vascular. Vascularity: Pulmonary vascularity is normal. Lungs: The lungs are clear. Pleural spaces: There are no pleural effusions. Bony structures: Bony structures are osteopenic with degenerative change IMPRESSION: PICC line tip at the origin of the superior vena cava, no acute disease in the chest Documented by Chanel Busch, acting as a scribe for Binta Tilley MD. All medical record entries made by the Scribe were at my direction and personally dictated by me. I have reviewed the chart and agree that the record accurately reflects my personal performance of the history, physical exam, medical decision making, and the department course for this patient. I have also personally directed, reviewed, and agree with the discharge instructions and disposition. Disposition Doctor Will See Patient In The: Office Counseled Patient/Family Regarding: Studies Performed, Diagnosis - Clinical Impression Clinical Impression: UTI (urinary tract infection), Shaking - POA Present On Arrival: None - Disposition Referrals: Reji López MD [Staff Provider] - Disposition: Rehab Facility/Unit ([facility]) Disposition Time: 20:54 Condition: GOOD Additional Instructions: Take your medications as instructed. Follow up with your PCP in 2-3 days. Prescriptions: Nitrofurantoin Macrocrystals [Macrobid] 100 mg PO BID #14 cap Instructions: Urinary Tract Infection in Women (ED)
--- NOTE | 2016-12-07 19:55 | RAD ---
EXAM: XR Chest, 1 View CLINICAL HISTORY: 61 years old, female; Signs and symptoms; Other: Tremor TECHNIQUE: Frontal view of the chest. EXAM DATE/TIME: 12/07/2016 6:26 PM COMPARISON: CR - CHEST TWO VIEWS (PA/LAT) 09/21/2016 5:03:04 PM FINDINGS: Tubes and catheters: There is a right PICC line with the tip at the origin of the superior vena cava Heart, mediastinum and tresa: Heart size is normal. Mediastinal and hilar contours are unremarkable. Right paratracheal opacity is most likely vascular. Vascularity: Pulmonary vascularity is normal. Lungs: The lungs are clear. Pleural spaces: There are no pleural effusions. Bony structures: Bony structures are osteopenic with degenerative change IMPRESSION: PICC line tip at the origin of the superior vena cava, no acute disease in the chest
[2016-12-07 20:12] LABS: SQUAMOUS EPITHIAL 3 /hpf (0-5); URINE BACTERIA RARE (<OCC); URINE BILIRUBIN NEGATIVE (NEGATIVE); URINE BLOOD NEGATIVE (NEGATIVE); URINE CLARITY SLIGHTY-CLOUDY (Clear); URINE COLOR YELLOW (YELLOW); URINE GLUCOSE (UA) >=500 mg/dL (Normal); URINE LEUKOCYTE ESTERASE SMALL Leu/uL (Negative); URINE NITRATE NEGATIVE (NEGATIVE); URINE PROTEIN NEGATIVE (NEGATIVE); URINE UROBILINOGEN 0.2-1.0 mg/dL (0.2-1.0)
[2016-12-07 20:34] VITALS: BP 149/71; PULSE 102; RESP 18; TEMP 98.4
[2016-12-07 20:54] VITALS: O2SAT 98
== END 2016-12-07 21:45 ==
LOC: H.ER 15:30
DX: N39.0 Urinary tract infection, site not specified (principal); R25.1 Tremor, unspecified; E11.9 Type 2 diabetes mellitus without complications; I10 Essential (primary) hypertension

== ENCOUNTER 2017-03-12 09:49 | Observation (INO) | payer MEDICARE ==
[2017-03-07 15:05] VITALS: BMI 26.2
[2017-03-12] MEDS ORDERED: Lidocaine 1% Inj (20ml) ONE (10:58)
[2017-03-12] MEDS ORDERED: ceFAZolin IV 1 gm in Dextrose 1 GM/50 ML BAG IVPB ONE ×2 (10:58→11:53)
[2017-03-12] MEDS ORDERED: Bupivacaine 0.5% Inj(30mL) ONE (10:58)
[2017-03-12] MEDS ORDERED: Lactated Ringer's 1,000 ML IV ONE ×2 (11:06→12:40)
[2017-03-12] MEDS ORDERED: ePHEDrine 50 mg/ml Inj ONE (11:15)
[2017-03-12] MEDS ORDERED: Propofol 10 mg/ml Inj (20 ML) ONE (11:15)
[2017-03-12] MEDS ORDERED: Midazolam 2 MG/2 ML VIAL ONE (11:53)
[2017-03-12] MEDS: HYDROmorphone 0.5 mg/0.5 ml ISec IVP PRN ×3 (13:35→14:20)
--- NOTE | 2017-03-12 13:50 | PCM.SURG1 ---
Surgeon's Initial Post Op Note - Surgeon's Notes Surgeon: Raj Singletary M.D. Plate Glass Installer Helper: None Type of Anesthesia: General Endo Anesthesia Administered By: Tom Pre-Operative Diagnosis: Wound over the right knee Operative Findings: Eschar over the patella and patellar tendon Post-Operative Diagnosis: Same Operation Performed: Debridement of eschar down to bone and tendon Specimen/Specimens Removed: Yes. Eschar and tendon Estimated Blood Loss: EBL {In ML}: 15 Blood Products Given: N/A Drains Used: No Drains Post-Op Condition: Good Date of Surgery/Procedure: 03/12/17 Time of Surgery/Procedure: 13:20
[2017-03-12] MEDS ORDERED: GLYCERIN PR PRN (21:34)
[2017-03-12] MEDS ORDERED: PETROLATUM PR PRN (21:34)
[2017-03-12] MEDS ORDERED: PHENYLEPHRINE PR PRN (21:34)
[2017-03-12] MEDS ORDERED: PRAMOXINE PR PRN (21:34)
[2017-03-12] MEDS ORDERED: ZINC OXIDE TOP SCH (21:45)
[2017-03-12] MEDS ORDERED: ZINC OXIDE CREAM(DESITIN) TOP SCH (22:15)
--- NOTE | 2017-03-13 01:53 | OP ---
PROCEDURE DATE: 03/12/2017 PREOPERATIVE DIAGNOSIS: Necrotic tissue over the right knee following a total knee replacement. POSTOPERATIVE DIAGNOSIS: Necrotic tissue over the right knee following a total knee replacement. PROCEDURE: Debridement of eschar from the patella and the patellar tendon. Application of a wound vacuum-assisted closure. SURGEON: Raj Singletary MD TYPE OF ANESTHESIA: General. OPERATIVE FINDINGS: The patient was brought to the operating room suite and placed on the table in supine position. Following induction of general anesthesia and following infusion 2 grams of intravenous Ancef, she was prepped and draped in the usual sterile manner. It should be noted that she was given 5000 units of heparin subcu prior to coming into the operating room. Utilizing tangential debridement, the eschar was debrided off of the patella and off of the patellar tendon. The tangential debridement stopped when punctate bleeding was obtained throughout the wound. Wound cultures were taken of the debrided tissue for aerobic, anaerobic, fungal and AFB. Wound was then copiously irrigated with high pressure bacitracin irrigation, 3 L of simple bacitracin irrigation were performed. After obtaining complete hemostasis with electrocautery, the wound VAC was applied and set for continuous flow suction at 125 mmHg. The estimated blood loss during the procedure was negligible. The size of the final wound following debridement measured 4.5 x 6.5 cm. The patient tolerated the procedure well and was transferred to the recovery room in stable condition. Raj Singletary MD
[2017-03-13 06:31] VITALS: O2SAT 95
[2017-03-13] MEDS: Calcium-Vit D 500 mg-200 Units Tab UD PO SCH ×2 (08:35→16:42)
[2017-03-13] MEDS: Saccharomyces Boulardi 250 mg Cap PO SCH ×2 (08:35→16:40)
[2017-03-13] MEDS: Carbamide Peroxide OTIC SOLUTION AU SCH ×2 (08:37→16:40)
[2017-03-13] MEDS ORDERED: CLOTRIMAZOLE TOP SCH (09:00)
[2017-03-13] MEDS ORDERED: Patient's Own Med (Diclofenac Sodium [Voltaren] 1 APPL) TOP SCH (09:00)
[2017-03-13] MEDS ORDERED: Pantoprazole 40 mg EC Tab PO SCH (09:00)
[2017-03-13] MEDS ORDERED: Patient's Own Med (Multivitamin [Multi-Vitamin Daily] 1 TAB) PO SCH (09:00)
[2017-03-13] MEDS ORDERED: Multivitamin With Minerals Tab PO SCH (09:00)
[2017-03-13] MEDS ORDERED: [UNRECOGNIZED DRUG - OTHER] TOP SCH (09:00)
[2017-03-13 16:24] VITALS: BP 103/62; PULSE 84; RESP 18; TEMP 98.5
== END 2017-03-13 19:42 | disposition home health service (06) ==
LOC: H.OPSURG 09:49 → INTOOBSV 17:35 → H.MEDSURG1 17:35 → H.OPSURG 19:06
PROVIDERS: ADMIT Surgery Plastic and Reconstructive Surgery; ATTEND Surgery Plastic and Reconstructive Surgery
DX: L76.82 Other postprocedural complications of skin and subcutaneous tissue (principal); I96 Gangrene, not elsewhere classified; B96.5 Pseudomonas (aeruginosa) (mallei) (pseudomallei) as the cause of diseases classified elsewhere; B95.62 Methicillin resistant Staphylococcus aureus infection as the cause of diseases classified elsewhere; Y83.8 Other surgical procedures as the cause of abnormal reaction of the patient, or of later complication, without mention of misadventure at the time of the procedure; Z96.651 Presence of right artificial knee joint
CPT/HCPCS: 11043; 82948; 87015; 87070; 87075; 87101; 87116; 87181; 87206; 88304; G0378; J0690; J1170; J1644; J2250; J2405; J2704; J2765; J3010; J7030; J7120

== ENCOUNTER 2017-03-29 17:50 | Emergency (ER) | payer MEDICARE ==
[2017-03-29 17:57] VITALS: RESP 16; BMI 27.1
--- NOTE | 2017-03-29 18:54 | ED PDOC ---
Lower Extremity Pain/Injury Time Seen by Provider: 03/29/17 18:13 Chief Complaint (Nursing): Lower Extremity Problem/Injury Chief Complaint (Provider): Lower Extremity Problem/Injury History Per: Patient History/Exam Limitations: no limitations Onset/Duration Of Symptoms: Days (x2) Current Symptoms Are (Timing): Still Present Additional Complaint(s): Octavia Dozier is a 61 year old female with previous medical history of hypertension, diabetes and hypercholesterolemia, who presents to the emergency department for an evaluation of right knee wound associated with swelling and discharge ongoing since knee replacement in 08/2016. Patient had a wound vac placed [address] Singletary who plans on reconstructive surgery of right knee. Wound culture performed at [facility] 2 days ago showed positive results for MRSA. PMD: none provided Past Medical History Reviewed: Historical Data, Nursing Documentation, Vital Signs Vital Signs: Last Vital Signs Temp 96.8 F L 03/29/17 17:56 Pulse 98 H 03/29/17 17:56 Resp 16 03/29/17 17:56 BP 132/74 03/29/17 17:56 Pulse Ox 100 03/29/17 17:56 - Medical History PMH: Arthritis, Depression, Diabetes, HTN, Hypercholesterolemia, Hyperlipidemia , Kidney Stones, Pulmonary Embolism Denies: Chronic Kidney Disease - Surgical History Surgical History: Appendectomy, Hernia Repair, Tonsillectomy Denies: Pacemaker - Family History Family History: States: Unknown Family Hx - Social History Current smoker - smoking cessation education provided: No Ex-Smoker (has not smoked in the last 12 months): No Alcohol: None Drugs: Denies - Immunization History Hx Tetanus Toxoid Vaccination: No Hx Influenza Vaccination: No Hx Pneumococcal Vaccination: No - Home Medications Home Medications: Ambulatory Orders Medication Instructions Recorded Metformin HCl 1,000 mg PO BID 01/31/12 Pantoprazole [Protonix EC Tab] 40 mg PO DAILY ect 10/13/16 Rivaroxaban [Xarelto] 15 mg PO BIDWM tab 10/13/16 Aspirin [Ecotrin] 81 mg PO DAILY 12/07/16 Atorvastatin [Lipitor] 40 mg PO HS 12/07/16 Calcium Carbonate/Vitamin D3 1 tab PO BID 12/07/16 [Calcium 500-Vit D3 200 Tablet] DULoxetine [Cymbalta] 30 mg PO HS 12/07/16 Pregabalin [Lyrica] 100 mg PO TID 12/07/16 Zinc Oxide 1 appl TOP QSHIFT 12/07/16 Rosuvastatin Calcium [Crestor] 40 mg PO DAILY 03/12/17 Ciprofloxacin/Dexamethasone 1 drop AU BID #1 bottle 03/15/17 [Ciprodex Otic] Levofloxacin [Levaquin] 500 mg PO DAILY #7 tablet 03/15/17 oxyCODONE/Acetaminophen [Percocet 1 ea PO Q6 #10 tab 03/15/17 5/325 mg Tab] Doxycycline Monohydrate 100 mg PO BID #14 tablet 03/20/17 - Allergies Allergies/Adverse Reactions: Allergies Allergy/AdvReac Type Severity Reaction Status Date / Time codeine Allergy Severe HALLUCINATI Verified 03/13/17 21:59 ONS Review of Systems ROS Statement: Except As Marked, All Systems Reviewed And Found Negative Constitutional: Negative for: Fever, Chills Musculoskeletal: Positive for: Leg Pain (right knee wound) Physical Exam - Reviewed Nursing Documentation Reviewed: Yes Vital Signs Reviewed: Yes - Physical Exam Appears: Positive for: Well, Non-toxic, No Acute Distress Head Exam: Positive for: ATRAUMATIC, NORMAL INSPECTION, NORMOCEPHALIC Skin: Positive for: Normal Color Eye Exam: Positive for: Normal appearance ENT: Positive for: Normal ENT Inspection Neck: Positive for: Normal, Painless ROM, Supple. Negative for: Decreased ROM Cardiovascular/Chest: Positive for: Regular Rate, Rhythm, Chest Non Tender Respiratory: Positive for: Normal Breath Sounds, Accessory Muscle Use. Negative for: Decreased Breath Sounds, Respiratory Distress Gastrointestinal/Abdominal: Positive for: Normal Exam Extremity: Positive for: Tenderness (right knee), Deformity (right knee deep open wound with visible bone). Negative for: Swelling (or erythema/ serosanguinous drainage) Neurologic/Psych: Positive for: Alert, Oriented - Laboratory Results Result Diagrams: 03/29/17 19:15 03/29/17 20:08 - ECG O2 Sat by Pulse Oximetry: 100 (RA) Pulse Ox Interpretation: Normal Medical Decision Making Medical Decision Making: Initial Impression: Surgical site infection; chronic wound infection Initial Plan: * BMP * CBC * ESR * Blood culture Time: 1839 --Dr. Singletary examining patient at bedside. -Patient examined by Dr Gordon. Recommends discharge with [facility]. Scribe Attestation: Documented by Shala Dc, acting as a scribe for Binta Tilley MD. Provider Scribe Attestation: All medical record entries made by the Scribe were at my direction and personally dictated by me. I have reviewed the chart and agree that the record accurately reflects my personal performance of the history, physical exam, medical decision making, and the department course for this patient. I have also personally directed, reviewed, and agree with the discharge instructions and disposition. Disposition - Clinical Impression Clinical Impression: Infection of knee - Patient ED Disposition Is Patient to be Admitted: No Doctor Will See Patient In The: Office Counseled Patient/Family Regarding: Studies Performed, Diagnosis, Need For Followup - Disposition Referrals: Raj Singletary MD [Staff Provider] - Raj Gordon MD [Medical Doctor] - Disposition: Routine/Home Disposition Time: 20:43 Condition: GOOD Additional Instructions: Follow up with your PCP in 2-3 days. Take your medications as instructed. Instructions: Wound Infection (ED)
[2017-03-29 19:52] LABS: BASO # 0.1 K/uL (0.0-0.2); BASO % 0.5 % (0.0-2.0); EOS # 0.1 K/uL (0.0-0.7); EOS % 1.3 % (0.0-4.0); HEMATOCRIT 34.6 % (34.0-47.0); LYMPH # 2.2 K/uL (1.0-4.3); LYMPH % 21.1 % (20.0-40.0); MEAN CELL VOLUME 83.1 fl (81.0-99.0); MEAN CORPUSCULAR HEMOGLOBIN 27.1 pg (27.0-31.0); MEAN CORPUSCULAR HGB CONC 32.6 g/dL (33.0-37.0); MEAN PLATELET VOLUME 8.1 fl (7.2-11.7); MONO # 0.8 K/uL (0.0-0.8); MONO % 7.6 % (0.0-10.0); NEUT # 7.2 K/uL (1.8-7.0); NEUT % 69.5 % (50.0-75.0); RED CELL DISTRIBUTION WIDTH 14.2 % (11.5-14.5); WHITE BLOOD COUNT 10.4 K/uL (4.8-10.8)
[2017-03-29 20:19] LABS: BLOOD UREA NITROGEN 22 mg/dl (7-17); CALCIUM 9.1 mg/dL (8.4-10.2); CARBON DIOXIDE 29 mmol/L (22-30); CHLORIDE 100 mmol/L (98-107); GFR AFRICAN-AMERICAN > 60; GLUCOSE,RANDOM 164 mg/dL (65-105); POTASSIUM 4.3 MMOL/L (3.6-5.0); SODIUM 138 mmol/l (132-148)
[2017-03-29 20:58] VITALS: BP 110/80; PULSE 80; TEMP 98.1
[2017-03-29 21:44] VITALS: O2SAT 100
--- NOTE | 2017-03-31 05:33 | CON ---
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 She was examined today by both Dr. Gordon and myself. She had developed an open wound with thick eschar over her right knee following the knee replacement, and following the debridement of the eschar she was treated with wound VAC therapy. Her wound was cultured at the [facility] on Sunday and was found to be growing MRSA as well as pseudomonas. Physical examination this evening demonstrates an exposed patella; however, there are areas of granulation within the wound. There are no signs of cellulitis. She has copious drainage in the wound VAC, which presents with a malodor. Multiple wound cultures were taken in the ER today. IMPRESSION: Although, the wound is improving clinically since the debridement, our concern is that the knee prosthesis is contaminated and may need to be removed. PLAN: I will be contacting Dr. Berry's office tomorrow to inform of this evening's findings, and she will be making an appointment with him for followup. I will follow Ms. Dozier in my office following her appointment with Dr. Berry. Raj Singletary MD
== END 2017-03-29 21:37 | disposition home or self-care (01) ==
LOC: H.ER 17:50
DX: T84.53XA Infection and inflammatory reaction due to internal right knee prosthesis, initial encounter (principal); E11.9 Type 2 diabetes mellitus without complications; E78.00 Pure hypercholesterolemia, unspecified; F32.9 Major depressive disorder, single episode, unspecified; I10 Essential (primary) hypertension; Z79.01 Long term (current) use of anticoagulants; Z79.82 Long term (current) use of aspirin; Z86.711 Personal history of pulmonary embolism; Z87.442 Personal history of urinary calculi; Z87.891 Personal history of nicotine dependence; Z96.651 Presence of right artificial knee joint